=== PATIENT | female | born 1950 | race Caucasian/White ===

== ENCOUNTER 2017-10-01 16:36 | Inpatient (IN) | payer MEDICARE ==
[~2017-10-01] VITALS: Ht 198.1 cm; Wt 70.3 kg
[~2017-10-01 16:36] MED LIST: Vancomycin 750mg/NS 250ml IVPB SCH
[2017-10-01] MEDS ORDERED: GLIPIZIDE5 MG ORAL (16:46)
[2017-10-01] MEDS ORDERED: LISINOPRIL5 MG ORAL (16:46)
[2017-10-01] MEDS ORDERED: CRANBERRY450 M4 PO (16:46)
[2017-10-01] MEDS ORDERED: METFORMIN HCL1000 M1 ORAL (16:46)
[2017-10-01] MEDS ORDERED: Meclizine 25mg tab ORAL ONE (17:00)
[2017-10-01 17:08] VITALS: BP 130/63
[2017-10-01 17:47] LABS: HEMATOCRIT 39.3 % (37.0-47.0); HEMOGLOBIN 13.3 G/DL (12.0-16.0); MEAN CORPUSCULAR VOLUME 85 FL (80-99); PLATELET COUNT 315 K/UL (150-450); RED BLOOD COUNT 4.63 M/UL (4.20-5.40); RED CELL DISTRIBUTION WIDTH 12.4 % (11.6-14.8)
[2017-10-01 18:14] LABS: WHITE BLOOD COUNT 28.4 K/UL (4.8-10.8)
[2017-10-01 18:28] LABS: ALANINE AMINOTRANSFERASE 32 U/L (12-78); ALBUMIN 3.1 G/DL (3.4-5.0); ALBUMIN/GLOBULIN RATIO 0.8 (1.0-2.7); ALKALINE PHOSPHATASE 125 U/L (46-116); ANION GAP 13 mmol/L (5-15); ASPARTATE AMINO TRANSFERASE 28 U/L (15-37); BILIRUBIN,TOTAL 0.6 MG/DL (0.2-1.0); BLOOD UREA NITROGEN 42 mg/dL (7-18); CALCIUM 8.3 MG/DL (8.5-10.1); CARBON DIOXIDE 22 MMOL/L (21-32); CHLORIDE 98 MMOL/L (98-107); CREATININE 1.4 MG/DL (0.55-1.30); POTASSIUM 5.9 MMOL/L (3.5-5.1); SODIUM 133 MMOL/L (136-145)
[2017-10-01 18:43] LABS: APPEARANCE,URINE SLIGHTLY CLOUDY; BILIRUBIN, URINE 2+ (NEGATIVE); GLUCOSE, URINE (UA) 3+ (NEGATIVE); KETONES,URINE 1+ (NEGATIVE); LEUKOCYTE ESTERASE ,URINE 3+ (NEGATIVE); NITRITE,URINE NEGATIVE (NEGATIVE); PH,URINE 5 (4.5-8.0); PROTEIN,URINE 2+ (NEGATIVE); UROBILINOGEN,URINE NORMAL MG/DL (0.0-1.0)
[2017-10-01 18:50] LABS: COLOR,URINE YELLOW
[2017-10-01] MEDS ORDERED: Ampicillin/Sulbactam Sod 3 GM in NS 110 ML IVPB ONE (19:00)
[2017-10-01 19:07] VITALS: BP 115/55
--- NOTE | 2017-10-01 19:43 | Consultation ---
History of Present Illness General Date patient seen: Oct 01, 2017 Chief Complaint: Multiple Trauma/Fall Reason for Consultation: abdominal distention/ nausea/ emesis Present Illness HPI 67 year old female presented to ED for evaluation today. States she was well yesterday then work up at 6AM this morning with vague abdominal discomfort. Had episode of emesis then diarrhea. Since has not had diarrhea but has had 2 more episodes of non bloody emesis. Since onset has noted vague abdominal discomfort which she describes as "it just doesn't feel right." Had a fall and came to ED. Noted to have significant leukocytosis, dehydration, and possible sbo on CT. Abdomen distended. Surgery called for evaluation. patient seen, chart reviewed, patient examined. Allergies: Coded Allergies: No Known Allergies (Unverified , 10/01/17) Medication History Scheduled Cranberry Fruit Concentrate (Cranberry), 450 MG PO DAILY, (Reported) Glipizide* (Glipizide*), 20 MG ORAL BIDAC, (Reported) Lisinopril (Lisinopril*), 5 MG ORAL DAILY, (Reported) Metformin Hcl* (Metformin Hcl*), 1,000 MG ORAL DAILY, (Reported) Patient History History Provided By: Patient, Medical Record, PMD Healthcare decision maker Resuscitation status Advanced Directive on File Past Medical/Surgical History Past Medical/Surgical History: (1) Nausea & vomiting (2) Diarrhea (3) Dehydration (4) Fall (5) Syncope (6) Abdominal pain (7) Partial small bowel obstruction Review of Systems All Other Systems: negative except mentioned in HPI Physical Exam General Appearance: no apparent distress, alert Lines, tubes and drains: peripheral HEENT: normocephalic, mucous membranes moist, PERRL Neck: non-tender Respiratory/Chest: lungs clear, normal breath sounds, no respiratory distress, no accessory muscle use Cardiovascular/Chest: normal peripheral pulses, normal rate Abdomen: non tender, soft, no organomegaly, no mass, distended, other - soft, distended, non tender. Extremities: non-tender, normal inspection Skin Exam: normal pigmentation Neurologic: alert, oriented x 3 Last 24 Hour Vital Signs Date Time Temp Pulse Resp B/P (MAP) Pulse Ox O2 Delivery O2 Flow Rate FiO2 10/01/17 19:07 99.7 98 18 115/55 95 Room Air 99.7 10/01/17 17:08 99.7 100 18 130/63 95 Room Air 99.7 10/01/17 16:38 99.7 100 18 113/63 95 Room Air 99.7 Laboratory Tests Test 10/01/17 17:32 10/01/17 18:30 White Blood Count 28.4 K/UL (4.8-10.8) *H Red Blood Count 4.63 M/UL (4.20-5.40) Hemoglobin 13.3 G/DL (12.0-16.0) Hematocrit 39.3 % (37.0-47.0) Mean Corpuscular Volume 85 FL (80-99) Mean Corpuscular Hemoglobin 28.8 PG (27.0-31.0) Mean Corpuscular Hemoglobin Concent 33.8 G/DL (32.0-36.0) Red Cell Distribution Width 12.4 % (11.6-14.8) Platelet Count 315 K/UL (150-450) Mean Platelet Volume 7.2 FL (6.5-10.1) Neutrophils (%) (Auto) % (45.0-75.0) Lymphocytes (%) (Auto) % (20.0-45.0) Monocytes (%) (Auto) % (1.0-10.0) Eosinophils (%) (Auto) % (0.0-3.0) Basophils (%) (Auto) % (0.0-2.0) Differential Total Cells Counted 100 Neutrophils % (Manual) 85 % (45-75) H Lymphocytes % (Manual) 9 % (20-45) L Monocytes % (Manual) 6 % (1-10) Eosinophils % (Manual) 0 % (0-3) Basophils % (Manual) 0 % (0-2) Band Neutrophils 0 % (0-8) Platelet Estimate Adequate Platelet Morphology Normal Red Blood Cell Morphology Normal Prothrombin Time 10.1 SEC (9.30-11.50) Prothromb Time International Ratio 1.0 (0.9-1.1) Activated Partial Thromboplast Time 26 SEC (23-33) Sodium Level 133 MMOL/L (136-145) L Potassium Level 5.9 MMOL/L (3.5-5.1) H Chloride Level 98 MMOL/L (98-107) Carbon Dioxide Level 22 MMOL/L (21-32) Anion Gap 13 mmol/L (5-15) Blood Urea Nitrogen 42 mg/dL (7-18) H Creatinine 1.4 MG/DL (0.55-1.30) H Estimat Glomerular Filtration Rate 37.6 mL/min (>60) Glucose Level 431 MG/DL (74-106) H Calcium Level 8.3 MG/DL (8.5-10.1) L Total Bilirubin 0.6 MG/DL (0.2-1.0) Aspartate Amino Transf (AST/SGOT) 28 U/L (15-37) Alanine Aminotransferase (ALT/SGPT) 32 U/L (12-78) Alkaline Phosphatase 125 U/L (46-116) H Total Protein 7.2 G/DL (6.4-8.2) Albumin 3.1 G/DL (3.4-5.0) L Globulin 4.1 g/dL Albumin/Globulin Ratio 0.8 (1.0-2.7) L Lipase 302 U/L (73-393) Urine Color Yellow Urine Appearance Slightly cloudy Urine pH 5 (4.5-8.0) Urine Specific [place] 1.020 (1.005-1.035) Urine Protein 2+ (NEGATIVE) H Urine Glucose (UA) 3+ (NEGATIVE) H Urine Ketones 1+ (NEGATIVE) H Urine Occult Blood 2+ (NEGATIVE) H Urine Nitrite Negative (NEGATIVE) Urine Bilirubin 2+ (NEGATIVE) H Urine Ictotest Negative Urine Urobilinogen Normal MG/DL (0.0-1.0) Urine Leukocyte Esterase 3+ (NEGATIVE) H Urine RBC 5-10 /HPF (0 - 2) H Urine WBC 10-15 /HPF (0 - 2) H Urine Squamous Epithelial Cells Moderate /LPF (NONE/OCC) H Urine Amorphous Sediment Moderate /LPF (NONE) H Urine Bacteria Many /HPF (NONE) H Height (Feet): 6 Height (Inches): 6.00 Weight (Pounds): 155 Medications Current Medications Medications (Trade) Dose Ordered Sig/Grace Route PRN Reason Start Time Stop Time Status Last Admin Dose Admin Sodium Chloride 1,000 ml @ 999 mls/hr Q1H1M ONCE IV 10/01/17 18:45 10/01/17 19:45 10/01/17 18:52 Assessment/Plan Problem List: (1) Partial small bowel obstruction Assessment & Plan: 67F possible partial SBO. nausea, emesis, diarrhea resulting in dehydration and syncope. afebrile, HD stable, leukocytosis, labs abnormal. CT results as per radiology read exam stable but with distention. could potentially be enteritis as well. Has UTI Needs further work up Admit NPO IV fluids IV Abx will monitor exam. thank you for this consult. will follow with recs. ICD Codes: K56.600 - Partial intestinal obstruction, unspecified as to cause SNOMED: [id number] Status: stable Pb Laureano Oct 01, 2017 19:43
[2017-10-01 19:49] VITALS: BP 121/102
--- NOTE | 2017-10-01 19:57 | Emergency Room Report ---
History of Present Illness General Chief Complaint: Multiple Trauma/Fall Source: Patient, Medical Record, PMD Present Illness HPI Patient 67-year-old female who presented after multiple episodes of vomiting earlier in the day. Patient reported having increased nonbilious emesis. The patient was noted to have the fall earlier in the day. Patient was brought in by EMS. She reports having some nonbloody emesis. Allergies: Coded Allergies: No Known Allergies (Unverified , 10/01/17) Patient History Past Medical History: see triage record Reviewed Nursing Documentation: PMH: Agreed; PSxH: Agreed Nursing Documentation-PMH Past Medical History: No History, Except For Hx Hypertension: Yes Hx Diabetes: Yes Review of Systems All Other Systems: limited - by poor historian Physical Exam Vital Signs Date Time Temp Pulse Resp B/P (MAP) Pulse Ox O2 Delivery O2 Flow Rate FiO2 10/01/17 16:38 99.7 100 18 113/63 95 Room Air 99.7 Sp02 EP Interpretation: reviewed, normal General Appearance: normal inspection, well appearing, no apparent distress, alert, obese, Chronically Ill Head: atraumatic ENT: normal ENT inspection, hearing grossly normal, normal voice Neck: normal inspection, full range of motion, supple, no bony tend Respiratory: normal inspection, lungs clear, normal breath sounds, no respiratory distress, no retraction, no wheezing Cardiovascular #1: regular rate, rhythm, no edema Gastrointestinal: normal bowel sounds, soft, no hernia, distended Genitourinary: no CVA tenderness Musculoskeletal: normal inspection, back normal, normal range of motion Neurologic: normal inspection, alert, oriented x3, responsive, speech normal Psychiatric: normal inspection, judgement/insight normal, mood/affect normal Skin: normal inspection, normal color, no rash Medical Decision Making Diagnostic Impression: Primary Impression: Abdominal pain Additional Impressions: Partial small bowel obstruction UTI (urinary tract infection) ER Course Patient presented for abdominal pain. Differential diagnoses included ischemic bowel, appendicitis, perforated viscus, abdominal aortic aneurysm, inferior myocardial infarction, viral gastroenteritis Because of complexity of patient's case laboratory testing and imaging studies were ordered. Laboratory testing showed evidence of elevated white blood count as well as increased BUN/creatinine consistent with dehydration. Patient started on IV fluids.Dr. Lydia Askew was contacted for inpatient management due to primary care physician. Dr. Laureano was contacted for surgical consult. Labs Test 10/01/17 17:32 10/01/17 18:30 White Blood Count 28.4 K/UL (4.8-10.8) Red Blood Count 4.63 M/UL (4.20-5.40) Hemoglobin 13.3 G/DL (12.0-16.0) Hematocrit 39.3 % (37.0-47.0) Mean Corpuscular Volume 85 FL (80-99) Mean Corpuscular Hemoglobin 28.8 PG (27.0-31.0) Mean Corpuscular Hemoglobin Concent 33.8 G/DL (32.0-36.0) Red Cell Distribution Width 12.4 % (11.6-14.8) Platelet Count 315 K/UL (150-450) Mean Platelet Volume 7.2 FL (6.5-10.1) Neutrophils (%) (Auto) % (45.0-75.0) Lymphocytes (%) (Auto) % (20.0-45.0) Monocytes (%) (Auto) % (1.0-10.0) Eosinophils (%) (Auto) % (0.0-3.0) Basophils (%) (Auto) % (0.0-2.0) Differential Total Cells Counted 100 Neutrophils % (Manual) 85 % (45-75) Lymphocytes % (Manual) 9 % (20-45) Monocytes % (Manual) 6 % (1-10) Eosinophils % (Manual) 0 % (0-3) Basophils % (Manual) 0 % (0-2) Band Neutrophils 0 % (0-8) Platelet Estimate Adequate Platelet Morphology Normal Red Blood Cell Morphology Normal Prothrombin Time 10.1 SEC (9.30-11.50) Prothromb Time International Ratio 1.0 (0.9-1.1) Activated Partial Thromboplast Time 26 SEC (23-33) Sodium Level 133 MMOL/L (136-145) Potassium Level 5.9 MMOL/L (3.5-5.1) Chloride Level 98 MMOL/L (98-107) Carbon Dioxide Level 22 MMOL/L (21-32) Anion Gap 13 mmol/L (5-15) Blood Urea Nitrogen 42 mg/dL (7-18) Creatinine 1.4 MG/DL (0.55-1.30) Estimat Glomerular Filtration Rate 37.6 mL/min (>60) Glucose Level 431 MG/DL (74-106) Calcium Level 8.3 MG/DL (8.5-10.1) Total Bilirubin 0.6 MG/DL (0.2-1.0) Aspartate Amino Transf (AST/SGOT) 28 U/L (15-37) Alanine Aminotransferase (ALT/SGPT) 32 U/L (12-78) Alkaline Phosphatase 125 U/L (46-116) Total Protein 7.2 G/DL (6.4-8.2) Albumin 3.1 G/DL (3.4-5.0) Globulin 4.1 g/dL Albumin/Globulin Ratio 0.8 (1.0-2.7) Lipase 302 U/L (73-393) Urine Color Yellow Urine Appearance Slightly cloudy Urine pH 5 (4.5-8.0) Urine Specific [place] 1.020 (1.005-1.035) Urine Protein 2+ (NEGATIVE) Urine Glucose (UA) 3+ (NEGATIVE) Urine Ketones 1+ (NEGATIVE) Urine Occult Blood 2+ (NEGATIVE) Urine Nitrite Negative (NEGATIVE) Urine Bilirubin 2+ (NEGATIVE) Urine Ictotest Negative Urine Urobilinogen Normal MG/DL (0.0-1.0) Urine Leukocyte Esterase 3+ (NEGATIVE) Urine RBC 5-10 /HPF (0 - 2) Urine WBC 10-15 /HPF (0 - 2) Urine Squamous Epithelial Cells Moderate /LPF (NONE/OCC) Urine Amorphous Sediment Moderate /LPF (NONE) Urine Bacteria Many /HPF (NONE) Last Vital Signs Date Time Temp Pulse Resp B/P (MAP) Pulse Ox O2 Delivery O2 Flow Rate FiO2 10/01/17 19:49 98.0 98 18 121/102 95 Room Air 98.0 Status: unchanged Disposition: XFER SHT-TRM HOSP Condition: Serious Referrals: LYDIA ASKEW (PCP) Moo Cody Oct 01, 2017 19:57
[2017-10-01 20:33] VITALS: BP 138/68
[2017-10-01] MEDS ORDERED: Miralax 17gm pkt ORAL PRN (22:30)
[2017-10-01] MEDS ORDERED: Nitroglycerin Subl 0.4mg tab SL PRN (22:30)
[2017-10-01] MEDS ORDERED: Albuterol/Ipratropium 3ml neb HHN PRN (22:30)
[2017-10-01] MEDS ORDERED: Morphine Sulfate 2mg/ml Inj IVP PRN (22:30)
[2017-10-02] VITALS (7 sets, daily range): BP systolic 117–151; BP diastolic 53–82
[2017-10-02] MEDS ORDERED: Vancomycin 750mg/NS 250ml IVPB SCH
[2017-10-02] MEDS ORDERED: Vancomycin 1 GM in D5W 275 ML IV SCH (00:30)
[2017-10-02] MEDS: NovoLOG Insulin Flexpen SUBQ SCH ×4 (05:57→20:26)
[2017-10-02 08:14] LABS: BASOPHILS % (AUTO) 0.2 % (0.0-2.0); EOSINOPHILS % (AUTO) 0.6 % (0.0-3.0); HEMATOCRIT 33.5 % (37.0-47.0); HEMOGLOBIN 11.2 G/DL (12.0-16.0); LYMPHOCYTES % (AUTO) 13.5 % (20.0-45.0); MEAN CORPUSCULAR VOLUME 87 FL (80-99); MONOCYTES % (AUTO) 3.3 % (1.0-10.0); NEUTROPHILS % (AUTO) 82.4 % (45.0-75.0); PLATELET COUNT 283 K/UL (150-450); RED BLOOD COUNT 3.86 M/UL (4.20-5.40); RED CELL DISTRIBUTION WIDTH 12.6 % (11.6-14.8); WHITE BLOOD COUNT 16.9 K/UL (4.8-10.8)
--- NOTE | 2017-10-02 08:46 | Diagnostic Imaging Report ---
Indication: Abdominal pain Technique: Spiral acquisitions obtained through the abdomen and pelvis. No oral contrast utilized, per emergency room physician request No IV contrast utilized, per referring physician request.. Multiplanar reconstructions were generated. Total dose length product 750.98 mGycm. CTDIvol(s) 13.88 mGy. Dose reduction achieved using automated exposure control Comparison: None Findings: The appendix is normal. No evidence of diverticulosis or diverticulitis. The rectum is mildly distended by gas. Small bowel loops are mildly distended, fluid-filled. Distention extends all the way to the level of the ileocecal valve. The proximal colon is also filled with fluid. No definite bowel wall thickening. The distal esophagus, stomach, duodenum are unremarkable. No free or loculated peritoneal air or fluid is evident. Lack of IV contrast limits assessment of the solid organs. The liver, gallbladder, bile ducts, pancreas are all unremarkable. Spleen demonstrates a small parenchymal calcification. The adrenals are unremarkable. The kidneys demonstrate nonspecific bilateral perinephric fat stranding, minimal, no abnormality otherwise. No retroperitoneal or mesenteric mass or adenopathy. No pelvic mass or adenopathy. The bones demonstrate degenerative spondylosis changes. The included lung bases demonstrate some scarring on the left. Impression: Diffusely mildly distended fluid-filled small bowel loops, suspect on the basis of enteritis or ileus. Minimal nonspecific bilateral perinephric fat stranding Degenerative spondylosis Left basilar pulmonary scarring -Agrees stat rad The CT scanner at [facility] is accredited by the [employer] and the scans are performed using protocols designed to limit radiation exposure to as low as reasonably achievable to attain images of sufficient resolution adequate for diagnostic evaluation.
[2017-10-02 08:49] LABS: ALANINE AMINOTRANSFERASE 26 U/L (12-78); ALBUMIN 2.7 G/DL (3.4-5.0); ALBUMIN/GLOBULIN RATIO 0.8 (1.0-2.7); ALKALINE PHOSPHATASE 97 U/L (46-116); ANION GAP 9 mmol/L (5-15); ASPARTATE AMINO TRANSFERASE 11 U/L (15-37); BILIRUBIN,TOTAL 0.4 MG/DL (0.2-1.0); BLOOD UREA NITROGEN 34 mg/dL (7-18); CALCIUM 7.5 MG/DL (8.5-10.1); CARBON DIOXIDE 25 MMOL/L (21-32); CHLORIDE 103 MMOL/L (98-107); CREATININE 1.1 MG/DL (0.55-1.30); POTASSIUM 4.2 MMOL/L (3.5-5.1); SODIUM 137 MMOL/L (136-145)
[2017-10-02] MEDS ORDERED: Cefepime HCl 2 GM in D5W 110 ML IV SCH (09:00)
[2017-10-02] MEDS ORDERED: Heparin 5000 units/ml inj SUBQ SCH (09:00)
--- NOTE | 2017-10-02 10:25 | GI Initial Consult Note ---
Lorie Marr N.PHarpal 10/02/17 1025: History of Present Illness General Date patient seen: Oct 02, 2017 Time patient seen: 10:22 Reason for Hospitalization: Multiple Trauma/Fall Referring physician: LYDIA ASKEW Reason for Consultation: abdominal distention/ nausea/ emesis Present Illness HPI Patient 67-year-old female who presented after multiple episodes of vomiting earlier in the day. Patient reported having increased nonbilious emesis. The patient was noted to have the fall earlier in the day. Patient was brought in by EMS. She reports having some nonbloody emesis. GI consulted for reports of N/V abdominal distention. Pt seen on floor, awake A&Ox4 NAD with no active s/sx of N/V/D. Patient reports 3 episodes of emesis 2 days ago, denies any heme or coffee grounds. Denies any abdominal pain , soft non tender. Last BM reported yesterday. On ADA diet now. Has complaint of generalized weakness. Presents today with leukocytosis, and anemia. CT reviewed shows possible enteritis vs ileus. No history of endoscopy / colonoscopy. Home Meds Reported Medications Cranberry Fruit Concentrate (CRANBERRY) 450 Mg Capsule, 450 MG PO DAILY, CAP 10/01/17 Metformin Hcl* (METFORMIN HCL*) 1,000 Mg Tablet, 1000 MG ORAL DAILY, TAB 10/01/17 Lisinopril (LISINOPRIL*) 5 Mg Tablet, 5 MG ORAL DAILY, TAB 10/01/17 Glipizide* (GLIPIZIDE*) 5 Mg Tablet, 20 MG ORAL BIDAC, TAB 10/01/17 Med list reviewed/reconciled: Yes Allergies: Coded Allergies: No Known Allergies (Unverified , 10/01/17) Patient History History Provided By: Patient, Medical Record PMH Narrative Past Medical History: see triage record Reviewed Nursing Documentation: PMH: Agreed; PSxH: Agreed Nursing Documentation-PMH Past Medical History: No History, Except For Hx Hypertension: Yes Hx Diabetes: Yes Social History: Denies: smoking, alcohol use, drug use, other Review of Systems All Other Systems: negative except mentioned in HPI Physical Exam Vital Signs Date Time Temp Pulse Resp B/P (MAP) Pulse Ox O2 Delivery O2 Flow Rate FiO2 10/01/17 16:38 99.7 100 18 113/63 95 Room Air 99.7 Sp02 EP Interpretation: reviewed, normal Labs Laboratory Tests Test 10/01/17 17:32 10/01/17 18:30 10/02/17 07:00 White Blood Count 28.4 K/UL (4.8-10.8) *H 16.9 K/UL (4.8-10.8) H Red Blood Count 4.63 M/UL (4.20-5.40) 3.86 M/UL (4.20-5.40) L Hemoglobin 13.3 G/DL (12.0-16.0) 11.2 G/DL (12.0-16.0) L Hematocrit 39.3 % (37.0-47.0) 33.5 % (37.0-47.0) L Mean Corpuscular Volume 85 FL (80-99) 87 FL (80-99) Mean Corpuscular Hemoglobin 28.8 PG (27.0-31.0) 28.9 PG (27.0-31.0) Mean Corpuscular Hemoglobin Concent 33.8 G/DL (32.0-36.0) 33.4 G/DL (32.0-36.0) Red Cell Distribution Width 12.4 % (11.6-14.8) 12.6 % (11.6-14.8) Platelet Count 315 K/UL (150-450) 283 K/UL (150-450) Mean Platelet Volume 7.2 FL (6.5-10.1) 7.2 FL (6.5-10.1) Neutrophils (%) (Auto) % (45.0-75.0) 82.4 % (45.0-75.0) H Lymphocytes (%) (Auto) % (20.0-45.0) 13.5 % (20.0-45.0) L Monocytes (%) (Auto) % (1.0-10.0) 3.3 % (1.0-10.0) Eosinophils (%) (Auto) % (0.0-3.0) 0.6 % (0.0-3.0) Basophils (%) (Auto) % (0.0-2.0) 0.2 % (0.0-2.0) Differential Total Cells Counted 100 Neutrophils % (Manual) 85 % (45-75) H Lymphocytes % (Manual) 9 % (20-45) L Monocytes % (Manual) 6 % (1-10) Eosinophils % (Manual) 0 % (0-3) Basophils % (Manual) 0 % (0-2) Band Neutrophils 0 % (0-8) Platelet Estimate Adequate Platelet Morphology Normal Red Blood Cell Morphology Normal Prothrombin Time 10.1 SEC (9.30-11.50) Prothromb Time International Ratio 1.0 (0.9-1.1) Activated Partial Thromboplast Time 26 SEC (23-33) Sodium Level 133 MMOL/L (136-145) L 137 MMOL/L (136-145) Potassium Level 5.9 MMOL/L (3.5-5.1) H 4.2 MMOL/L (3.5-5.1) Chloride Level 98 MMOL/L (98-107) 103 MMOL/L (98-107) Carbon Dioxide Level 22 MMOL/L (21-32) 25 MMOL/L (21-32) Anion Gap 13 mmol/L (5-15) 9 mmol/L (5-15) Blood Urea Nitrogen 42 mg/dL (7-18) H 34 mg/dL (7-18) H Creatinine 1.4 MG/DL (0.55-1.30) H 1.1 MG/DL (0.55-1.30) Estimat Glomerular Filtration Rate 37.6 mL/min (>60) 49.7 mL/min (>60) Glucose Level 431 MG/DL (74-106) H 235 MG/DL (74-106) #H Calcium Level 8.3 MG/DL (8.5-10.1) L 7.5 MG/DL (8.5-10.1) L Total Bilirubin 0.6 MG/DL (0.2-1.0) 0.4 MG/DL (0.2-1.0) Aspartate Amino Transf (AST/SGOT) 28 U/L (15-37) 11 U/L (15-37) L Alanine Aminotransferase (ALT/SGPT) 32 U/L (12-78) 26 U/L (12-78) Alkaline Phosphatase 125 U/L (46-116) H 97 U/L (46-116) Total Protein 7.2 G/DL (6.4-8.2) 6.3 G/DL (6.4-8.2) L Albumin 3.1 G/DL (3.4-5.0) L 2.7 G/DL (3.4-5.0) L Globulin 4.1 g/dL 3.6 g/dL Albumin/Globulin Ratio 0.8 (1.0-2.7) L 0.8 (1.0-2.7) L Lipase 302 U/L (73-393) Urine Color Yellow Urine Appearance Slightly cloudy Urine pH 5 (4.5-8.0) Urine Specific [place] 1.020 (1.005-1.035) Urine Protein 2+ (NEGATIVE) H Urine Glucose (UA) 3+ (NEGATIVE) H Urine Ketones 1+ (NEGATIVE) H Urine Occult Blood 2+ (NEGATIVE) H Urine Nitrite Negative (NEGATIVE) Urine Bilirubin 2+ (NEGATIVE) H Urine Ictotest Negative Urine Urobilinogen Normal MG/DL (0.0-1.0) Urine Leukocyte Esterase 3+ (NEGATIVE) H Urine RBC 5-10 /HPF (0 - 2) H Urine WBC 10-15 /HPF (0 - 2) H Urine Squamous Epithelial Cells Moderate /LPF (NONE/OCC) H Urine Amorphous Sediment Moderate /LPF (NONE) H Urine Bacteria Many /HPF (NONE) H General Appearance: well appearing, no apparent distress, alert Head: normocephalic EENT: PERRL/EOMI, normal ENT inspection Neck: supple Respiratory: normal breath sounds, no respiratory distress Cardiovascular: normal rate Gastrointestinal: normal inspection, non tender, soft, normal bowel sounds, non -distended Rectal: deferred Genitourinary: no CVA tenderness Musculoskeletal: normal inspection, back normal Neurologic: normal inspection, alert, oriented x3, responsive Psychiatric: normal inspection, judgement/insight normal, memory normal Skin: normal inspection, normal color, no rash, warm/dry, palpation normal, well hydrated Lymphatic: normal inspection, no adenopathy Current Medications Current Medications Medications (Trade) Dose Ordered Sig/Grace Route PRN Reason Start Time Stop Time Status Last Admin Dose Admin Acetaminophen (Tylenol) 650 mg Q4H PRN ORAL fever 10/01/17 22:30 10/31/17 22:29 Albuterol/ Ipratropium (Albuterol/ Ipratropium) 3 ml EVERY 4 HOURS PRN HHN Shortness of Breath 10/01/17 22:30 10/06/17 22:29 Cefepime HCl 2 gm/ Dextrose 110 ml @ 220 mls/hr EVERY 12 HOURS IV 10/02/17 09:00 10/09/17 08:59 10/02/17 09:48 Dextrose (Dextrose 50%) STAT PRN IV Hypoglycemia 10/01/17 22:30 10/31/17 22:29 Heparin Sodium (Porcine) (Heparin 5000 units/ml) 5,000 units EVERY 12 HOURS SUBQ 10/02/17 09:00 11/01/17 08:59 10/02/17 08:57 Insulin Aspart (NovoLOG) BEFORE MEALS AND HS SUBQ 10/02/17 06:30 11/01/17 06:29 10/02/17 05:57 Morphine Sulfate (Morphine Sulfate) 2 mg EVERY 4 HOURS PRN IVP Moderate Pain (Pain Scale 4-6) 10/01/17 22:30 10/08/17 22:29 Nitroglycerin (Ntg) 0.4 mg Q5M PRN SL Prn Chest Pain 10/01/17 22:30 10/31/17 22:29 Ondansetron HCl (Zofran) 4 mg Q6H PRN IVP Nausea & Vomiting 10/01/17 22:30 10/31/17 22:29 Polyethylene Glycol (Miralax) 17 gm DAILYPRN PRN ORAL Constipation 10/01/17 22:30 10/31/17 22:29 Temazepam (Restoril) 15 mg HSPRN PRN ORAL Insomnia 10/01/17 22:30 10/08/17 22:29 Vancomycin/Sodium Chloride 250 ml @ 166.667 mls/hr Q24H IVPB 10/02/17 00:00 10/07/17 00:00 10/02/17 00:11 GI: Plan Problems: (1) Ileus (2) Dehydration (3) Nausea & vomiting (4) Fall (5) Syncope (6) Abdominal pain Plan CT AP reviewed, see full report >> possible enteritis vs ileus ADA diet anemia work up OB stool r/o GI bleed monitor H&H, prn transfusions bowel regime zofran prn ppi abx OT/PT eval fu labs outpatient GI procedures Discussed with Dr. Rodriguez. Thank you for this patient referral, we will follow. ANNA RODRIGUEZ 10/05/17 1358: History of Present Illness General Reason for Hospitalization: Multiple Trauma/Fall Present Illness Home Meds Reported Medications Cranberry Fruit Concentrate (CRANBERRY) 450 Mg Capsule, 450 MG PO DAILY, CAP 10/01/17 Metformin Hcl* (METFORMIN HCL*) 1,000 Mg Tablet, 1000 MG ORAL DAILY, TAB 10/01/17 Lisinopril (LISINOPRIL*) 5 Mg Tablet, 5 MG ORAL DAILY, TAB 10/01/17 Glipizide* (GLIPIZIDE*) 5 Mg Tablet, 20 MG ORAL BIDAC, TAB 10/01/17 Allergies: Coded Allergies: No Known Allergies (Unverified , 10/01/17) GI: Plan Plan The patient was seen and examined at bedside and all new and available data was reviewed in the patients chart. I agree with the above findings, impression and plan. (Patient seen earlier today. Signature stamp does not reflect patient encounter time.). - MD Justa Vill[facility] Terrell N.PHarpal Oct 02, 2017 10:25 ANNA RODRIGUEZ Oct 05, 2017 13:58
[2017-10-02] MEDS ORDERED: Miralax 17gm pkt ORAL PRN (10:45)
--- NOTE | 2017-10-02 13:24 | Consultation ---
History of Present Illness General Date patient seen: Oct 02, 2017 Chief Complaint: Multiple Trauma/Fall Referring physician: LYDIA ASKEW Reason for Consultation: sepsis, inpatient management Present Illness Allergies: Coded Allergies: No Known Allergies (Unverified , 10/01/17) Medication History Scheduled Cranberry Fruit Concentrate (Cranberry), 450 MG PO DAILY, (Reported) Glipizide* (Glipizide*), 20 MG ORAL BIDAC, (Reported) Lisinopril (Lisinopril*), 5 MG ORAL DAILY, (Reported) Metformin Hcl* (Metformin Hcl*), 1,000 MG ORAL DAILY, (Reported) Patient History Healthcare decision maker Resuscitation status Full Code Advanced Directive on File Yes Past Medical/Surgical History Past Medical/Surgical History: (1) Diabetes mellitus Review of Systems Gastrointestinal: Reports: abdominal pain, diarrhea, nausea, vomiting All Other Systems: negative except mentioned in HPI Physical Exam General Appearance: cachetic Lines, tubes and drains: peripheral HEENT: normocephalic, atraumatic Neck: non-tender, supple Respiratory/Chest: chest wall non-tender, normal breath sounds Breasts: no masses Cardiovascular/Chest: normal peripheral pulses, normal rate Abdomen: normal bowel sounds, soft Genitourinary/Rectal: normal genital exam, heme negative stool Extremities: normal range of motion, non-tender Skin Exam: normal pigmentation Last 24 Hour Vital Signs Date Time Temp Pulse Resp B/P (MAP) Pulse Ox O2 Delivery O2 Flow Rate FiO2 10/02/17 12:00 98.2 64 20 122/53 96 Room Air 98.2 10/02/17 08:19 80 18 21 10/02/17 08:00 90 10/02/17 08:00 98.1 84 20 118/82 94 Room Air 98.1 10/02/17 04:00 96.8 20 137/70 95 Room Air 96.8 10/02/17 04:00 70 10/02/17 00:00 76 10/02/17 00:00 98.1 20 151/67 96 Room Air 98.1 10/01/17 20:33 99.7 18 138/68 94 Room Air 99.7 10/01/17 20:15 98.0 99 16 131/80 98 Room Air 10/01/17 19:49 98.0 98 18 121/102 95 Room Air 98.0 10/01/17 19:07 99.7 98 18 115/55 95 Room Air 99.7 10/01/17 17:08 99.7 100 18 130/63 95 Room Air 99.7 10/01/17 16:38 99.7 100 18 113/63 95 Room Air 99.7 Laboratory Tests Test 10/01/17 17:32 10/01/17 18:30 10/02/17 07:00 White Blood Count 28.4 K/UL (4.8-10.8) *H 16.9 K/UL (4.8-10.8) H Red Blood Count 4.63 M/UL (4.20-5.40) 3.86 M/UL (4.20-5.40) L Hemoglobin 13.3 G/DL (12.0-16.0) 11.2 G/DL (12.0-16.0) L Hematocrit 39.3 % (37.0-47.0) 33.5 % (37.0-47.0) L Mean Corpuscular Volume 85 FL (80-99) 87 FL (80-99) Mean Corpuscular Hemoglobin 28.8 PG (27.0-31.0) 28.9 PG (27.0-31.0) Mean Corpuscular Hemoglobin Concent 33.8 G/DL (32.0-36.0) 33.4 G/DL (32.0-36.0) Red Cell Distribution Width 12.4 % (11.6-14.8) 12.6 % (11.6-14.8) Platelet Count 315 K/UL (150-450) 283 K/UL (150-450) Mean Platelet Volume 7.2 FL (6.5-10.1) 7.2 FL (6.5-10.1) Neutrophils (%) (Auto) % (45.0-75.0) 82.4 % (45.0-75.0) H Lymphocytes (%) (Auto) % (20.0-45.0) 13.5 % (20.0-45.0) L Monocytes (%) (Auto) % (1.0-10.0) 3.3 % (1.0-10.0) Eosinophils (%) (Auto) % (0.0-3.0) 0.6 % (0.0-3.0) Basophils (%) (Auto) % (0.0-2.0) 0.2 % (0.0-2.0) Differential Total Cells Counted 100 Neutrophils % (Manual) 85 % (45-75) H Lymphocytes % (Manual) 9 % (20-45) L Monocytes % (Manual) 6 % (1-10) Eosinophils % (Manual) 0 % (0-3) Basophils % (Manual) 0 % (0-2) Band Neutrophils 0 % (0-8) Platelet Estimate Adequate Platelet Morphology Normal Red Blood Cell Morphology Normal Prothrombin Time 10.1 SEC (9.30-11.50) Prothromb Time International Ratio 1.0 (0.9-1.1) Activated Partial Thromboplast Time 26 SEC (23-33) Sodium Level 133 MMOL/L (136-145) L 137 MMOL/L (136-145) Potassium Level 5.9 MMOL/L (3.5-5.1) H 4.2 MMOL/L (3.5-5.1) Chloride Level 98 MMOL/L (98-107) 103 MMOL/L (98-107) Carbon Dioxide Level 22 MMOL/L (21-32) 25 MMOL/L (21-32) Anion Gap 13 mmol/L (5-15) 9 mmol/L (5-15) Blood Urea Nitrogen 42 mg/dL (7-18) H 34 mg/dL (7-18) H Creatinine 1.4 MG/DL (0.55-1.30) H 1.1 MG/DL (0.55-1.30) Estimat Glomerular Filtration Rate 37.6 mL/min (>60) 49.7 mL/min (>60) Glucose Level 431 MG/DL (74-106) H 235 MG/DL (74-106) #H Calcium Level 8.3 MG/DL (8.5-10.1) L 7.5 MG/DL (8.5-10.1) L Total Bilirubin 0.6 MG/DL (0.2-1.0) 0.4 MG/DL (0.2-1.0) Aspartate Amino Transf (AST/SGOT) 28 U/L (15-37) 11 U/L (15-37) L Alanine Aminotransferase (ALT/SGPT) 32 U/L (12-78) 26 U/L (12-78) Alkaline Phosphatase 125 U/L (46-116) H 97 U/L (46-116) Total Protein 7.2 G/DL (6.4-8.2) 6.3 G/DL (6.4-8.2) L Albumin 3.1 G/DL (3.4-5.0) L 2.7 G/DL (3.4-5.0) L Globulin 4.1 g/dL 3.6 g/dL Albumin/Globulin Ratio 0.8 (1.0-2.7) L 0.8 (1.0-2.7) L Lipase 302 U/L (73-393) Urine Color Yellow Urine Appearance Slightly cloudy Urine pH 5 (4.5-8.0) Urine Specific [place] 1.020 (1.005-1.035) Urine Protein 2+ (NEGATIVE) H Urine Glucose (UA) 3+ (NEGATIVE) H Urine Ketones 1+ (NEGATIVE) H Urine Occult Blood 2+ (NEGATIVE) H Urine Nitrite Negative (NEGATIVE) Urine Bilirubin 2+ (NEGATIVE) H Urine Ictotest Negative Urine Urobilinogen Normal MG/DL (0.0-1.0) Urine Leukocyte Esterase 3+ (NEGATIVE) H Urine RBC 5-10 /HPF (0 - 2) H Urine WBC 10-15 /HPF (0 - 2) H Urine Squamous Epithelial Cells Moderate /LPF (NONE/OCC) H Urine Amorphous Sediment Moderate /LPF (NONE) H Urine Bacteria Many /HPF (NONE) H Microbiology Date/Time Source Procedure Growth Status 10/01/17 18:30 Urine,Clean Catch Urine Culture - Preliminary Resulted Height (Feet): 6 Height (Inches): 6.00 Weight (Pounds): 155 Medications Current Medications Medications (Trade) Dose Ordered Sig/Grace Route PRN Reason Start Time Stop Time Status Last Admin Dose Admin Acetaminophen (Tylenol) 650 mg Q4H PRN ORAL fever 10/01/17 22:30 10/31/17 22:29 Albuterol/ Ipratropium (Albuterol/ Ipratropium) 3 ml EVERY 4 HOURS PRN HHN Shortness of Breath 10/01/17 22:30 10/06/17 22:29 Cefepime HCl 2 gm/ Dextrose 110 ml @ 220 mls/hr EVERY 12 HOURS IV 10/02/17 09:00 10/09/17 08:59 10/02/17 09:48 Dextrose (Dextrose 50%) 25 ml STAT PRN IV Hypoglycemia 10/02/17 12:45 10/31/17 22:29 Dextrose (Dextrose 50%) 50 ml STAT PRN IV Hypoglycemia 10/02/17 12:45 11/01/17 12:44 Heparin Sodium (Porcine) (Heparin 5000 units/ml) 5,000 units EVERY 12 HOURS SUBQ 10/02/17 09:00 11/01/17 08:59 10/02/17 08:57 Insulin Aspart (NovoLOG) BEFORE MEALS AND HS SUBQ 10/02/17 06:30 11/01/17 06:29 10/02/17 11:20 Morphine Sulfate (Morphine Sulfate) 2 mg EVERY 4 HOURS PRN IVP Moderate Pain (Pain Scale 4-6) 10/01/17 22:30 10/08/17 22:29 Nitroglycerin (Ntg) 0.4 mg Q5M PRN SL Prn Chest Pain 10/01/17 22:30 10/31/17 22:29 Ondansetron HCl (Zofran) 4 mg Q6H PRN IVP Nausea & Vomiting 10/01/17 22:30 10/31/17 22:29 Pantoprazole (Protonix) 40 mg DAILY ORAL 10/03/17 09:00 11/02/17 08:59 Polyethylene Glycol (Miralax) 17 gm DAILYPRN PRN ORAL Constipation 10/02/17 10:45 11/01/17 10:44 Temazepam (Restoril) 15 mg HSPRN PRN ORAL Insomnia 10/01/17 22:30 10/08/17 22:29 Vancomycin HCl (Vanco rx to dose) 1 ea DAILY PRN MISC PER RX PROTOCOL 10/02/17 12:45 11/01/17 12:44 Vancomycin/Sodium Chloride 250 ml @ 166.667 mls/hr Q24H IVPB 10/02/17 00:00 10/07/17 00:00 10/02/17 00:11 Assessment/Plan Problem List: (1) UTI (urinary tract infection) ICD Codes: N39.0 - Urinary tract infection, site not specified SNOMED: 26981432 (2) Ileus ICD Codes: K56.7 - Ileus, unspecified SNOMED: 938653031 (3) Partial small bowel obstruction ICD Codes: K56.600 - Partial intestinal obstruction, unspecified as to cause SNOMED: 247764043 (4) Nausea & vomiting ICD Codes: R11.2 - Nausea with vomiting, unspecified SNOMED: 03373302 (5) Diabetes mellitus ICD Codes: E11.9 - Type 2 diabetes mellitus without complications SNOMED: 70247414 Assessment/Plan npo iv fluids check cultures surgical evaluation check electrolytes sliding scale symptomatic treatment. Raymond Rosen MD Oct 02, 2017 13:24
--- NOTE | 2017-10-02 14:51 | Cardiology Report ---
APPROVED REPORT EKG Measurement Heart [id number] VT [id number] [id number] Sinus tachycardia Incomplete right bundle branch block Left anterior fascicular block Voltage criteria for left ventricular hypertrophy Possible Lateral infarct, age undetermined Abnormal ECG
--- NOTE | 2017-10-02 16:12 | Consultation ---
Consult Note Consult Note [id number] Franky Brandt MD Oct 02, 2017 16:12
[2017-10-02] MEDS ORDERED: Nitroglycerin Subl 0.4mg tab SL PRN (17:00)
[2017-10-02] MEDS ORDERED: Morphine Sulfate 2mg/ml Inj IVP PRN (17:00)
[2017-10-02] MEDS ORDERED: Albuterol/Ipratropium 3ml neb HHN PRN (17:00)
--- NOTE | 2017-10-02 19:45 | History and Physical Report ---
DATE OF ADMISSION: 10/01/2017 APPROXIMATELY TIME: 1 p.m. CONSULTANTS: 1. Wero Ortega M.D. 2. Pb Laureano M.D. 3. Raymond Rosen M.D. 4. Ludin Nance M.D. 5. Andrez Rahman M.D. 6. Douglas Willson M.D. CHIEF COMPLAINT: Nausea, vomiting, small bowel obstruction, edema, UTI, leukocytosis. BRIEF HISTORY: This is a 67-year-old female from [facility] presented two days of increasing nausea and vomiting, came to [place] [facility], diagnosed with small bowel obstruction, and also urinary tract infection, and admitted to telemetry for further care. Currently, slightly nauseous in bed, no complaint. REVIEW OF SYSTEMS: No chest pain. No shortness of breath. Slight nausea, vomiting. No diarrhea. PAST MEDICAL HISTORY: Hypertension and diabetes. PAST SURGICAL HISTORY: None. MEDICATIONS: Include Protonix, vancomycin, cefepime, heparin, NovoLog, albuterol, Tylenol, morphine, Zofran, nitroglycerin, temazepam. ALLERGIES: Haldol. SOCIAL HISTORY: No smoking. No alcohol. No intravenous drug use. FAMILY HISTORY: Noncontributory. PHYSICAL EXAMINATION: GENERAL: Calm in bed, oriented x2, slight abdominal discomfort. VITAL SIGNS: Temperature is 98, pulse 64, respiratory rate 20, blood pressure 122/53. CARDIOVASCULAR: No murmur. LUNGS: Distant and clear. ABDOMEN: Bowel sounds distant. Soft. No rigidity. No rebound but slightly distended. EXTREMITIES: No cyanosis, clubbing, 1+ edema. NEUROLOGIC: The patient moves all extremities, but slightly weak. LABORATORY AND DIAGNOSTIC DATA: White count 16.9, hemoglobin and hematocrit 11/33, platelets 283. BMP shows BUN 34, glucose 235, otherwise BMP is normal. Albumin 2.7. INR is 1.0. Urinalysis show 3+ leukocyte esterase. ASSESSMENT: 1. Nausea and vomiting. 2. Small bowel obstruction. 3. Edema. 4. Anemia. 5. UTI. 6. Sepsis. 7. Renal insufficiency. 8. Diabetes. 9. Hyperglycemia. 10. Hypoalbumin. 11. Hypertension. PLAN: 1. NPO. 2. IV fluids. 3. Pain control. 4. Antiemetics p.r.n. 5. Blood pressure and blood sugar control. 6. Dietary followup. 7. OT/PT. 8. Dietary evaluation. 9. CBC and BMP in the morning. 10. We will continue to follow this patient medically. Dorian Henriquez D.O. DR: Jorge Luis JOB#: [id number] CC:
[2017-10-02] MEDS: Cefepime HCl 2 GM in D5W 110 ML IV SCH (20:25)
[2017-10-02] MEDS: Heparin 5000 units/ml inj SUBQ SCH (20:28)
--- NOTE | 2017-10-02 20:45 | Consultation ---
DATE OF CONSULTATION: 10/02/2017 INFECTIOUS DISEASES CONSULTATION CONSULTING PHYSICIAN: Franky Brandt M.D. REFERRING PHYSICIAN: Dorian Henriquez D.O. REASON FOR CONSULTATION: Evaluation of the patient for possible sepsis/leukocytosis, antibiotic management. HISTORY OF PRESENT ILLNESS: The patient is a 67-year-old female with multiple problems as listed below who was transferred to this medical center after the patient had a fall. Also the patient has episodes of nonbilious vomiting. The patient was found to have leukocytosis in the range of 18,000. The patient has been admitted here for further evaluation. Infectious Diseases consultation has been requested for further evaluation of patient and antibiotic management. PAST MEDICAL HISTORY: 1. GERD. 2. Hypertension. 3. Diabetes. ALLERGIES: No known drug allergies. SOCIAL HISTORY: Unremarkable. FAMILY HISTORY: Noncontributing. REVIEW OF SYSTEMS: HEENT: No recent change in vision or hearing. PULMONARY: The patient has chronic allergic cough. No sputum production. CARDIOVASCULAR: No chest pain. GASTROINTESTINAL/ABDOMEN: No nausea or vomiting. The patient had one episode of large bowel movement yesterday. GENITOURINARY: No dysuria. NEUROLOGIC: No seizure. PHYSICAL EXAMINATION: VITAL SIGNS: Temperature 98 degrees, blood pressure 122/52, pulse 86, respiratory rate 18. HEENT: No pale conjunctivae. No icterus. NECK: No lymphadenopathy. CHEST: Clear. HEART: S1 and S2. ABDOMEN: Soft and nontender. EXTREMITIES: No cyanosis at this time. SKIN: No rash or wound. NEUROLOGIC: Alert. LABORATORY AND DIAGNOSTIC DATA: At the time of admission 28 and today is 17, hemoglobin 11, platelet 283. UA 10 to 15 white blood cells. BUN 34 and creatinine 1.1. ALT, AST, and alkaline phosphatase unremarkable. Urine culture pending. CT of abdomen and pelvis, diffuse mildly distended small bowel, minimal nonspecific bilateral perinephric fat stranding. ASSESSMENT: The patient is a 67-year-old female with leukocytosis. 1. Rule out urinary tract infection. 2. Pyuria. 3. CT scan showing perinephric stranding. 4. Rule out bacteremia. PLAN: 1. We will continue the patient on cefepime, discontinue vancomycin. 2. Monitor CBC. 3. Monitor BMP. 4. Monitor cultures (blood and urine). 5. Monitor CBC and BMP. 6. Monitor chest x-ray. 7. Based on patient's clinical course and labs, we will do further recommendations. Thank you, Dr. Dorian Henriquez, for allowing me to participate in the care of this patient. I will follow the patient with you during this hospitalization. Franky Brandt M.D. DR: Mariola JOB#: [id number] CC:
[2017-10-03 00:14] VITALS: BP 140/73
[2017-10-03 03:45] VITALS: BP 125/63
[2017-10-03] MEDS ORDERED: LORazepam 1mg tab ORAL PRN (04:15)
[2017-10-03] MEDS: NovoLOG Insulin Flexpen SUBQ SCH ×4 (06:22→21:14)
[2017-10-03 07:26] LABS: BASOPHILS % (AUTO) 0.7 % (0.0-2.0); EOSINOPHILS % (AUTO) 1.3 % (0.0-3.0); HEMATOCRIT 32.8 % (37.0-47.0); HEMOGLOBIN 11.3 G/DL (12.0-16.0); MEAN CORPUSCULAR VOLUME 86 FL (80-99); MONOCYTES % (AUTO) 4.4 % (1.0-10.0); NEUTROPHILS % (AUTO) 71.7 % (45.0-75.0); PLATELET COUNT 227 K/UL (150-450); RED BLOOD COUNT 3.82 M/UL (4.20-5.40); RED CELL DISTRIBUTION WIDTH 12.4 % (11.6-14.8); WHITE BLOOD COUNT 9.6 K/UL (4.8-10.8)
[2017-10-03 08:00] VITALS: BP 137/69
[2017-10-03 08:11] LABS: ALANINE AMINOTRANSFERASE 34 U/L (12-78); ALBUMIN 2.7 G/DL (3.4-5.0); ALBUMIN/GLOBULIN RATIO 0.8 (1.0-2.7); ALKALINE PHOSPHATASE 124 U/L (46-116); ANION GAP 6 mmol/L (5-15); ASPARTATE AMINO TRANSFERASE 25 U/L (15-37); BILIRUBIN,TOTAL 0.3 MG/DL (0.2-1.0); BLOOD UREA NITROGEN 23 mg/dL (7-18); CALCIUM 7.8 MG/DL (8.5-10.1); CARBON DIOXIDE 28 MMOL/L (21-32); CHLORIDE 105 MMOL/L (98-107); CREATININE 0.9 MG/DL (0.55-1.30); FERRITIN 73 NG/ML (8-388); PHOSPHORUS 3.4 MG/DL (2.5-4.9); POTASSIUM 4.7 MMOL/L (3.5-5.1); SODIUM 139 MMOL/L (136-145)
[2017-10-03 08:27] LABS: % IRON SATURATION 17 % (15-50); IRON 35 ug/dL (50-175); TOTAL IRON BINDING CAPACITY 211 ug/dL (250-450)
[2017-10-03] MEDS: Heparin 5000 units/ml inj SUBQ SCH ×2 (08:39→21:15)
[2017-10-03] MEDS: Cefepime HCl 2 GM in D5W 110 ML IV SCH ×2 (08:40→21:11)
--- NOTE | 2017-10-03 08:47 | General Progress Note ---
Assessment/Plan Problem List: (1) UTI (urinary tract infection) ICD Codes: N39.0 - Urinary tract infection, site not specified SNOMED: 51152643 (2) Diabetes mellitus ICD Codes: E11.9 - Type 2 diabetes mellitus without complications SNOMED: 54417359 (3) Ileus ICD Codes: K56.7 - Ileus, unspecified SNOMED: 828212230 (4) Partial small bowel obstruction ICD Codes: K56.600 - Partial intestinal obstruction, unspecified as to cause SNOMED: 813520032 (5) Abdominal pain ICD Codes: R10.9 - Unspecified abdominal pain SNOMED: 30087000 (6) Nausea & vomiting ICD Codes: R11.2 - Nausea with vomiting, unspecified SNOMED: 01345468 (7) Dehydration ICD Codes: E86.0 - Dehydration SNOMED: 93010762 Status: unchanged Assessment/Plan ot pt diet abx gi sx f/u cbc bmp am Subjective Constitutional: Reports: weakness Gastrointestinal/Abdominal: Reports: nausea Allergies: Coded Allergies: No Known Allergies (Unverified , 10/01/17) All Systems: reviewed and negative except above Subjective no vomit no bm yet Objective Last 24 Hour Vital Signs Date Time Temp Pulse Resp B/P (MAP) Pulse Ox O2 Delivery O2 Flow Rate FiO2 10/03/17 08:00 98.4 63 19 137/69 97 98.4 10/03/17 07:37 67 18 Room Air 21 10/03/17 03:45 97.5 63 20 125/63 94 Room Air 97.5 10/03/17 00:14 97.9 63 20 140/73 94 Room Air 97.9 10/02/17 23:55 69 18 Room Air 21 10/02/17 19:24 97.9 55 20 134/55 95 Room Air 97.9 67 10/02/17 16:50 98.1 64 18 150/73 95 98.1 10/02/17 16:00 98.2 65 20 117/67 96 Room Air 98.2 10/02/17 16:00 70 10/02/17 12:00 70 10/02/17 12:00 98.2 64 20 122/53 96 Room Air 98.2 Intake and Output 10/02/17 10/03/17 19:00 07:00 Intake Total 350 ml Balance 350 ml Intake Oral 240 ml IV Total 110 ml # Voids 1 4 Laboratory Tests 10/03/17 05:00: White Blood Count 9.6, Red Blood Count 3.82L, Hemoglobin 11.3L, Hematocrit 32.8L , Mean Corpuscular Volume 86, Mean Corpuscular Hemoglobin 29.7, Mean Corpuscular Hemoglobin Concent 34.6, Red Cell Distribution Width 12.4, Platelet Count 227, Mean Platelet Volume 6.4L, Neutrophils (%) (Auto) 71.7, Lymphocytes ( %) (Auto) 22.0, Monocytes (%) (Auto) 4.4, Eosinophils (%) (Auto) 1.3, Basophils (%) (Auto) 0.7, Erythrocyte Sedimentation Rate 45H, Reticulocyte Count 1.1, Prothrombin Time 10.1, Prothromb Time International Ratio 1.0, Activated Partial Thromboplast Time 26, Sodium Level 139, Potassium Level 4.7, Chloride Level 105, Carbon Dioxide Level 28, Anion Gap 6, Blood Urea Nitrogen 23H, Creatinine 0.9, Estimat Glomerular Filtration Rate > 60, Glucose Level 265H, Calcium Level 7.8L, Phosphorus Level 3.4, Magnesium Level 1.3L, Iron Level 35L, Total Iron Binding Capacity 211L, Percent Iron Saturation 17, Unsaturated Iron Binding 176, Ferritin 73, Total Bilirubin 0.3, Aspartate Amino Transf (AST/SGOT ) 25, Alanine Aminotransferase (ALT/SGPT) 34, Alkaline Phosphatase 124H, C- Reactive Protein, Quantitative 3.5H, Total Protein 6.0L, Albumin 2.7L, Globulin 3.3, Albumin/Globulin Ratio 0.8L, Vitamin B12 Level 485, Folate 12.9, Thyroid Stimulating Hormone (TSH) 2.864, Free Thyroxine 1.04 Height (Feet): 6 Height (Inches): 6.00 Weight (Pounds): 155 General Appearance: alert EENT: normal ENT inspection Neck: normal alignment Cardiovascular: normal peripheral pulses, normal rate, regular rhythm Respiratory/Chest: chest wall non-tender, lungs clear, no respiratory distress Abdomen: non tender, soft, hypoactive bowel sounds Extremities: normal inspection Edema: no edema noted Arm (L), no edema noted Arm (R), no edema noted Leg (L), no edema noted Leg (R), no edema noted Pedal (L), no edema noted Pedal (R), no edema noted Generalized Neurologic: responsive, motor weakness Skin: normal pigmentation, warm/dry LYDIA ASKEW Oct 03, 2017 08:47
[2017-10-03] MEDS ORDERED: Miralax 17gm pkt ORAL PRN (10:45)
--- NOTE | 2017-10-03 11:14 | General Surgery Progress Note ---
General Surgery-Progress Note Subjective Symptoms: improved, pain absent, tolerating diet, passing flatus, BM Additional Comments doing well. no acute events. comfortable. no pain. no n/v/f/c. no abdominal discomfort. Objective Last 24 Hour Vital Signs Date Time Temp Pulse Resp B/P (MAP) Pulse Ox O2 Delivery O2 Flow Rate FiO2 10/03/17 08:00 98.4 63 19 137/69 97 98.4 10/03/17 07:37 67 18 Room Air 21 10/03/17 03:45 97.5 63 20 125/63 94 Room Air 97.5 10/03/17 00:14 97.9 63 20 140/73 94 Room Air 97.9 10/02/17 23:55 69 18 Room Air 21 10/02/17 19:24 97.9 55 20 134/55 95 Room Air 97.9 67 10/02/17 16:50 98.1 64 18 150/73 95 98.1 10/02/17 16:00 98.2 65 20 117/67 96 Room Air 98.2 10/02/17 16:00 70 10/02/17 12:00 70 10/02/17 12:00 98.2 64 20 122/53 96 Room Air 98.2 I&O Intake and Output 10/02/17 10/03/17 19:00 07:00 Intake Total 350 ml Balance 350 ml Intake Oral 240 ml IV Total 110 ml # Voids 1 4 Drains: none Cardiovascular: RSR Respiratory: clear Abdomen: soft, flat, non-tender, present bowel sounds Extremities: no cyanosis Laboratory Tests Test 10/03/17 05:00 White Blood Count 9.6 K/UL (4.8-10.8) Red Blood Count 3.82 M/UL (4.20-5.40) L Hemoglobin 11.3 G/DL (12.0-16.0) L Hematocrit 32.8 % (37.0-47.0) L Mean Corpuscular Volume 86 FL (80-99) Mean Corpuscular Hemoglobin 29.7 PG (27.0-31.0) Mean Corpuscular Hemoglobin Concent 34.6 G/DL (32.0-36.0) Red Cell Distribution Width 12.4 % (11.6-14.8) Platelet Count 227 K/UL (150-450) Mean Platelet Volume 6.4 FL (6.5-10.1) L Neutrophils (%) (Auto) 71.7 % (45.0-75.0) Lymphocytes (%) (Auto) 22.0 % (20.0-45.0) Monocytes (%) (Auto) 4.4 % (1.0-10.0) Eosinophils (%) (Auto) 1.3 % (0.0-3.0) Basophils (%) (Auto) 0.7 % (0.0-2.0) Erythrocyte Sedimentation Rate 45 MM/HR (0-30) H Reticulocyte Count 1.1 % (0.0-2.0) Prothrombin Time 10.1 SEC (9.30-11.50) Prothromb Time International Ratio 1.0 (0.9-1.1) Activated Partial Thromboplast Time 26 SEC (23-33) Sodium Level 139 MMOL/L (136-145) Potassium Level 4.7 MMOL/L (3.5-5.1) Chloride Level 105 MMOL/L (98-107) Carbon Dioxide Level 28 MMOL/L (21-32) Anion Gap 6 mmol/L (5-15) Blood Urea Nitrogen 23 mg/dL (7-18) H Creatinine 0.9 MG/DL (0.55-1.30) Estimat Glomerular Filtration Rate > 60 mL/min (>60) Glucose Level 265 MG/DL (74-106) H Calcium Level 7.8 MG/DL (8.5-10.1) L Phosphorus Level 3.4 MG/DL (2.5-4.9) Magnesium Level 1.3 MG/DL (1.8-2.4) L Iron Level 35 ug/dL (50-175) L Total Iron Binding Capacity 211 ug/dL (250-450) L Percent Iron Saturation 17 % (15-50) Unsaturated Iron Binding 176 ug/dL (112-346) Ferritin 73 NG/ML (8-388) Total Bilirubin 0.3 MG/DL (0.2-1.0) Aspartate Amino Transf (AST/SGOT) 25 U/L (15-37) Alanine Aminotransferase (ALT/SGPT) 34 U/L (12-78) Alkaline Phosphatase 124 U/L (46-116) H C-Reactive Protein, Quantitative 3.5 mg/dL (0.00-0.90) H Total Protein 6.0 G/DL (6.4-8.2) L Albumin 2.7 G/DL (3.4-5.0) L Globulin 3.3 g/dL Albumin/Globulin Ratio 0.8 (1.0-2.7) L Vitamin B12 Level 485 PG/ML (193-986) Folate 12.9 NG/ML (8.6-58.9) Thyroid Stimulating Hormone (TSH) 2.864 uiU/mL (0.358-3.740) Free Thyroxine 1.04 NG/DL (0.76-1.46) Plan Problems: (1) Partial small bowel obstruction Assessment & Plan: 67F possible partial SBO. nausea, emesis, diarrhea resulting in dehydration and syncope. afebrile, HD stable, leukocytosis on admission, labs abnormal on admission. CT results reviewed since admission abdominal pain resolved. labs improved. tolerating diet. no signs or symptoms of sbo likely UTI etiology of leukocytosis. on IV Abx diet as tolerated no surgical intervention necessary. thank you for this consult. will follow with marquez. Pb Laureano Oct 03, 2017 11:14
[2017-10-03 12:00] VITALS: BP 150/65
--- NOTE | 2017-10-03 13:07 | General Progress Note ---
Assessment/Plan Problem List: (1) Anemia ICD Codes: D64.9 - Anemia, unspecified SNOMED: 760735022 (2) Weight loss ICD Codes: R63.4 - Abnormal weight loss SNOMED: 42596354, 948229091 (3) Diabetes mellitus ICD Codes: E11.9 - Type 2 diabetes mellitus without complications SNOMED: 44317856 (4) Ileus ICD Codes: K56.7 - Ileus, unspecified SNOMED: 280909281 (5) Abdominal pain ICD Codes: R10.9 - Unspecified abdominal pain SNOMED: 64022318 (6) Nausea & vomiting ICD Codes: R11.2 - Nausea with vomiting, unspecified SNOMED: 21894347 Assessment/Plan bowel regimen anemia work up tumoe markers stool ob tsh plan possible EGd and colonoscopy on Thursday Subjective ROS Limited/Unobtainable: Yes Allergies: Coded Allergies: No Known Allergies (Unverified , 10/01/17) Subjective no BM but passing gas Objective Last 24 Hour Vital Signs Date Time Temp Pulse Resp B/P (MAP) Pulse Ox O2 Delivery O2 Flow Rate FiO2 10/03/17 12:00 97.9 60 18 150/65 98 97.9 10/03/17 08:00 98.4 63 19 137/69 97 98.4 10/03/17 07:37 67 18 Room Air 21 10/03/17 03:45 97.5 63 20 125/63 94 Room Air 97.5 10/03/17 00:14 97.9 63 20 140/73 94 Room Air 97.9 10/02/17 23:55 69 18 Room Air 21 10/02/17 19:24 97.9 55 20 134/55 95 Room Air 97.9 67 10/02/17 16:50 98.1 64 18 150/73 95 98.1 10/02/17 16:00 98.2 65 20 117/67 96 Room Air 98.2 10/02/17 16:00 70 Intake and Output 10/02/17 10/03/17 19:00 07:00 Intake Total 350 ml Balance 350 ml Intake Oral 240 ml IV Total 110 ml # Voids 1 4 Laboratory Tests 10/03/17 05:00: White Blood Count 9.6, Red Blood Count 3.82L, Hemoglobin 11.3L, Hematocrit 32.8L , Mean Corpuscular Volume 86, Mean Corpuscular Hemoglobin 29.7, Mean Corpuscular Hemoglobin Concent 34.6, Red Cell Distribution Width 12.4, Platelet Count 227, Mean Platelet Volume 6.4L, Neutrophils (%) (Auto) 71.7, Lymphocytes ( %) (Auto) 22.0, Monocytes (%) (Auto) 4.4, Eosinophils (%) (Auto) 1.3, Basophils (%) (Auto) 0.7, Erythrocyte Sedimentation Rate 45H, Reticulocyte Count 1.1, Prothrombin Time 10.1, Prothromb Time International Ratio 1.0, Activated Partial Thromboplast Time 26, Sodium Level 139, Potassium Level 4.7, Chloride Level 105, Carbon Dioxide Level 28, Anion Gap 6, Blood Urea Nitrogen 23H, Creatinine 0.9, Estimat Glomerular Filtration Rate > 60, Glucose Level 265H, Calcium Level 7.8L, Phosphorus Level 3.4, Magnesium Level 1.3L, Iron Level 35L, Total Iron Binding Capacity 211L, Percent Iron Saturation 17, Unsaturated Iron Binding 176, Ferritin 73, Total Bilirubin 0.3, Aspartate Amino Transf (AST/SGOT ) 25, Alanine Aminotransferase (ALT/SGPT) 34, Alkaline Phosphatase 124H, C- Reactive Protein, Quantitative 3.5H, Total Protein 6.0L, Albumin 2.7L, Globulin 3.3, Albumin/Globulin Ratio 0.8L, Vitamin B12 Level 485, Folate 12.9, Thyroid Stimulating Hormone (TSH) 2.864, Free Thyroxine 1.04 Height (Feet): 6 Height (Inches): 6.00 Weight (Pounds): 155 General Appearance: alert EENT: normal ENT inspection Neck: supple Cardiovascular: normal rate Respiratory/Chest: decreased breath sounds Abdomen: soft, hyperactive bowel sounds, distended Extremities: non-tender ANNA RODRIGUEZ Oct 03, 2017 13:07
[2017-10-03] MEDS ORDERED: Lactulose 20gm/30ml UDC ORAL ONE (13:30)
--- NOTE | 2017-10-03 14:46 | Pulmonology Progress Note ---
Assessment/Plan Problems: (1) UTI (urinary tract infection) (2) Ileus (3) Nausea & vomiting (4) Weight loss (5) Anemia (6) Diabetes mellitus Assessment/Plan advance diet tumor marker GI f/u check electrolytes all meds and labs reviewed continue current regimne endoscopy on thursday Subjective ROS Limited/Unobtainable: No Constitutional: Reports: no symptoms HEENT: Repors: no symptoms Respiratory: Reports: no symptoms Allergies: Coded Allergies: No Known Allergies (Unverified , 10/01/17) Objective Last 24 Hour Vital Signs Date Time Temp Pulse Resp B/P (MAP) Pulse Ox O2 Delivery O2 Flow Rate FiO2 10/03/17 12:00 97.9 60 18 150/65 98 97.9 10/03/17 08:00 98.4 63 19 137/69 97 98.4 10/03/17 07:37 67 18 Room Air 21 10/03/17 03:45 97.5 63 20 125/63 94 Room Air 97.5 10/03/17 00:14 97.9 63 20 140/73 94 Room Air 97.9 10/02/17 23:55 69 18 Room Air 21 10/02/17 19:24 97.9 55 20 134/55 95 Room Air 97.9 67 10/02/17 16:50 98.1 64 18 150/73 95 98.1 10/02/17 16:00 98.2 65 20 117/67 96 Room Air 98.2 10/02/17 16:00 70 Intake and Output 10/02/17 10/03/17 19:00 07:00 Intake Total 350 ml Balance 350 ml Intake Oral 240 ml IV Total 110 ml # Voids 1 4 Objective General Appearance: cachetic HEENT: normocephalic, atraumatic Respiratory/Chest: chest wall non-tender, lungs clear Cardiovascular: normal rate, regular rhythm Abdomen: normal bowel sounds, soft, non tender, non distended Genitourinary: normal external genitalia Extremities: no cyanosis Skin: no rash 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 Complete Laboratory Tests 10/03/17 05:00: White Blood Count 9.6, Red Blood Count 3.82L, Hemoglobin 11.3L, Hematocrit 32.8L , Mean Corpuscular Volume 86, Mean Corpuscular Hemoglobin 29.7, Mean Corpuscular Hemoglobin Concent 34.6, Red Cell Distribution Width 12.4, Platelet Count 227, Mean Platelet Volume 6.4L, Neutrophils (%) (Auto) 71.7, Lymphocytes ( %) (Auto) 22.0, Monocytes (%) (Auto) 4.4, Eosinophils (%) (Auto) 1.3, Basophils (%) (Auto) 0.7, Erythrocyte Sedimentation Rate 45H, Reticulocyte Count 1.1, Prothrombin Time 10.1, Prothromb Time International Ratio 1.0, Activated Partial Thromboplast Time 26, Sodium Level 139, Potassium Level 4.7, Chloride Level 105, Carbon Dioxide Level 28, Anion Gap 6, Blood Urea Nitrogen 23H, Creatinine 0.9, Estimat Glomerular Filtration Rate > 60, Glucose Level 265H, Calcium Level 7.8L, Phosphorus Level 3.4, Magnesium Level 1.3L, Iron Level 35L, Total Iron Binding Capacity 211L, Percent Iron Saturation 17, Unsaturated Iron Binding 176, Ferritin 73, Total Bilirubin 0.3, Aspartate Amino Transf (AST/SGOT ) 25, Alanine Aminotransferase (ALT/SGPT) 34, Alkaline Phosphatase 124H, C- Reactive Protein, Quantitative 3.5H, Total Protein 6.0L, Albumin 2.7L, Globulin 3.3, Albumin/Globulin Ratio 0.8L, Vitamin B12 Level 485, Folate 12.9, Thyroid Stimulating Hormone (TSH) 2.864, Free Thyroxine 1.04 Current Medications Medications (Trade) Dose Ordered Sig/Grace Route PRN Reason Start Time Stop Time Status Last Admin Dose Admin Acetaminophen (Tylenol) 650 mg Q4H PRN ORAL fever 10/02/17 18:30 10/31/17 22:29 Albuterol/ Ipratropium (Albuterol/ Ipratropium) 3 ml EVERY 4 HOURS PRN HHN Shortness of Breath 10/02/17 17:00 10/06/17 22:29 Cefepime HCl 2 gm/ Dextrose 110 ml @ 220 mls/hr EVERY 12 HOURS IV 10/02/17 21:00 10/09/17 08:59 10/03/17 08:40 Dextrose (Dextrose 50%) 25 ml STAT PRN IV Hypoglycemia 10/03/17 12:45 10/31/17 22:29 Dextrose (Dextrose 50%) 50 ml STAT PRN IV Hypoglycemia 10/03/17 12:45 11/01/17 12:44 Docusate Sodium (Colace) 100 mg TWICE A DAY ORAL 10/03/17 18:00 11/02/17 17:59 Heparin Sodium (Porcine) (Heparin 5000 units/ml) 5,000 units EVERY 12 HOURS SUBQ 10/02/17 21:00 11/01/17 08:59 10/03/17 08:39 Insulin Aspart (NovoLOG) BEFORE MEALS AND HS SUBQ 10/02/17 21:00 11/01/17 06:29 10/03/17 11:30 Lorazepam (Ativan) 1 mg Q6H PRN ORAL For Anxiety 10/03/17 04:15 10/10/17 04:14 Morphine Sulfate (Morphine Sulfate) 2 mg EVERY 4 HOURS PRN IVP Moderate Pain (Pain Scale 4-6) 10/02/17 17:00 10/08/17 22:29 Nitroglycerin (Ntg) 0.4 mg Q5M PRN SL Prn Chest Pain 10/02/17 17:00 10/31/17 22:29 Ondansetron HCl (Zofran) 4 mg Q6H PRN IVP Nausea & Vomiting 10/02/17 22:30 10/31/17 22:29 Pantoprazole (Protonix) 40 mg DAILY ORAL 10/03/17 09:00 11/02/17 08:59 10/03/17 08:38 Polyethylene Glycol (Miralax) 17 gm DAILYPRN PRN ORAL Constipation 10/03/17 10:45 11/01/17 10:44 Risperidone (RisperDAL) 0.5 mg QPM ORAL 10/03/17 16:30 11/02/17 16:29 Temazepam (Restoril) 15 mg HSPRN PRN ORAL Insomnia 10/02/17 22:30 10/08/17 22:29 Trazodone HCl (Desyrel) 50 mg BEDTIME ORAL 10/03/17 21:00 11/02/17 20:59 Raymond Rosen MD Oct 03, 2017 14:45
[2017-10-03] MEDS ORDERED: Tubing IV Secondary IV ONE (14:54)
[2017-10-03 16:00] VITALS: BP 136/57
[2017-10-03] MEDS: Docusate 100mg cap ORAL SCH (17:01)
--- NOTE | 2017-10-03 19:45 | Consultation ---
DATE OF CONSULTATION: 10/03/2017 INITIAL PSYCHIATRIC EVALUATION CONSULTING PHYSICIAN: Douglas Willson M.D. REFERRING PHYSICIAN: Dorian Henriquez D.O. HISTORY OF PRESENT ILLNESS: This is a 67-year-old female patient with generalized weakness. That is the reason why this patient was admitted to [facility], but she does admit that she has a previous diagnosis of depression with psychotic features. She mentioned that she was previously taking Risperdal at bedtime as well as trazodone and she would like to continue those medications as they have not been prescribed here in the hospital. ALLERGIES: She has no known drug allergies. MEDICAL HISTORY: She has history of hypertension, diabetes, and generalized weakness. SOCIAL HISTORY: She lives at [facility]. Financially supported by [facility] and Medicare. SUBSTANCE ABUSE HISTORY: Denies use of any drug or alcohol use at this time. FAMILY PSYCHIATRIC HISTORY: Denies. MENTAL STATUS EXAMINATION: This is a 67-year-old female. Appearance is disheveled, irritable, agitated. Affect guarded and restricted. Intellect poor. Mood depressed and anxious. Motor activity, psychomotor agitation. Attention span is poor. Orientation x2. Speech is low volume and slurred. Thought process is disorganized. Thought content, slight paranoid delusions. Her insight and judgment is fair. DIAGNOSIS: 1. Major depressive disorder with psychotic features. 2. Generalized weakness, diabetes, hypertension. 3. Psychosocial stressors, financial. PLAN: My plan for this patient is I am going to start her on a psychotropic medication regimen of Risperdal. Start her at a low dose as she mentioned that she was taking low dose at the facility. I am going to start her at 0.5 mg every evening for the Risperdal and then I am also going to order a dose of trazodone at a dose of 50 mg nightly. I am also going to order Ativan at a dose of 1 mg every six hours p.r.n. anxiety and agitation and I am also going to provide 20 minutes of supportive therapy. Again, 20 minutes supportive therapy provided. Encouraged her to interact appropriately with staff and other patients. Chart has been reviewed and discussed with staff. I would like to thank Dr. Dorian Henriquez for this interesting consultation. I will be happy to follow this patient with you throughout her hospital course and the patient was seen and assessed at bedside. Douglas Willson M.D. DR: Elliot JOB#: [id number] CC:
[2017-10-03 20:17] VITALS: BP 154/85
[2017-10-03] MEDS: TraZODone 50mg tab ORAL SCH (21:11)
[2017-10-04] VITALS: BP 146/76
[2017-10-04 04:00] VITALS: BP 130/73
[2017-10-04] MEDS: NovoLOG Insulin Flexpen SUBQ SCH ×4 (06:27→21:00)
--- NOTE | 2017-10-04 07:17 | General Progress Note ---
Assessment/Plan Problem List: (1) Anemia ICD Codes: D64.9 - Anemia, unspecified SNOMED: 084201844 (2) Weight loss ICD Codes: R63.4 - Abnormal weight loss SNOMED: 75005075, 936434580 (3) Diabetes mellitus ICD Codes: E11.9 - Type 2 diabetes mellitus without complications SNOMED: 02046915 (4) Ileus ICD Codes: K56.7 - Ileus, unspecified SNOMED: 856503434 (5) Abdominal pain ICD Codes: R10.9 - Unspecified abdominal pain SNOMED: 51161715 (6) Nausea & vomiting ICD Codes: R11.2 - Nausea with vomiting, unspecified SNOMED: 63281331 Assessment/Plan bowel regimen anemia work up tumor markers stool ob plan possible EGD and colonoscopy on Thursday Subjective ROS Limited/Unobtainable: Yes Allergies: Coded Allergies: No Known Allergies (Unverified , 10/01/17) Subjective no event Objective Last 24 Hour Vital Signs Date Time Temp Pulse Resp B/P (MAP) Pulse Ox O2 Delivery O2 Flow Rate FiO2 10/04/17 04:00 97.5 58 20 130/73 97 97.5 10/04/17 00:00 97.7 63 20 146/76 97 97.7 10/03/17 20:17 96.6 67 18 154/85 95 Room Air 96.6 10/03/17 19:00 62 18 Room Air 21 10/03/17 16:00 Room Air 10/03/17 16:00 98.1 63 20 136/57 95 98.1 10/03/17 12:00 97.9 60 18 150/65 98 97.9 10/03/17 12:00 Room Air 10/03/17 08:00 98.4 63 19 137/69 97 98.4 10/03/17 08:00 Room Air 10/03/17 07:37 67 18 Room Air 21 Intake and Output 10/03/17 10/04/17 19:00 07:00 Intake Total 1000 ml 350 ml Balance 1000 ml 350 ml Intake Oral 780 ml 240 ml IV Total 220 ml 110 ml # Voids 4 2 Height (Feet): 6 Height (Inches): 6.00 Weight (Pounds): 155 General Appearance: no apparent distress EENT: normal ENT inspection Neck: supple Cardiovascular: normal rate Respiratory/Chest: decreased breath sounds Abdomen: normal bowel sounds, non tender, soft Extremities: non-tender ANNA RODRIGUEZ Oct 04, 2017 07:17
--- NOTE | 2017-10-04 07:18 | General Progress Note ---
Assessment/Plan Problem List: (1) UTI (urinary tract infection) ICD Codes: N39.0 - Urinary tract infection, site not specified SNOMED: 98788942 (2) Diabetes mellitus ICD Codes: E11.9 - Type 2 diabetes mellitus without complications SNOMED: 53876984 (3) Ileus ICD Codes: K56.7 - Ileus, unspecified SNOMED: 788280698 (4) Partial small bowel obstruction ICD Codes: K56.600 - Partial intestinal obstruction, unspecified as to cause SNOMED: 418843650 (5) Abdominal pain ICD Codes: R10.9 - Unspecified abdominal pain SNOMED: 15837145 (6) Nausea & vomiting ICD Codes: R11.2 - Nausea with vomiting, unspecified SNOMED: 71469387 (7) Dehydration ICD Codes: E86.0 - Dehydration SNOMED: 25442096 Status: unchanged Assessment/Plan ot pt diet abx gi sx f/u cbc bmp am adv diet if possible Subjective Constitutional: Reports: weakness Allergies: Coded Allergies: No Known Allergies (Unverified , 10/01/17) All Systems: reviewed and negative except above Subjective no vomit no bm yet Objective Last 24 Hour Vital Signs Date Time Temp Pulse Resp B/P (MAP) Pulse Ox O2 Delivery O2 Flow Rate FiO2 10/04/17 04:00 97.5 58 20 130/73 97 97.5 10/04/17 00:00 97.7 63 20 146/76 97 97.7 10/03/17 20:17 96.6 67 18 154/85 95 Room Air 96.6 10/03/17 19:00 62 18 Room Air 21 10/03/17 16:00 Room Air 10/03/17 16:00 98.1 63 20 136/57 95 98.1 10/03/17 12:00 97.9 60 18 150/65 98 97.9 10/03/17 12:00 Room Air 10/03/17 08:00 98.4 63 19 137/69 97 98.4 10/03/17 08:00 Room Air 10/03/17 07:37 67 18 Room Air 21 Intake and Output 10/03/17 10/04/17 19:00 07:00 Intake Total 1000 ml 350 ml Balance 1000 ml 350 ml Intake Oral 780 ml 240 ml IV Total 220 ml 110 ml # Voids 4 2 Height (Feet): 6 Height (Inches): 6.00 Weight (Pounds): 155 General Appearance: lethargic EENT: normal ENT inspection Neck: normal alignment Cardiovascular: normal peripheral pulses, normal rate, regular rhythm Respiratory/Chest: chest wall non-tender, lungs clear, normal breath sounds Abdomen: non tender, soft, hypoactive bowel sounds Extremities: normal inspection Edema: no edema noted Arm (L), no edema noted Arm (R), no edema noted Leg (L), no edema noted Leg (R), no edema noted Pedal (L), no edema noted Pedal (R), no edema noted Generalized Neurologic: responsive, motor weakness Skin: normal pigmentation, warm/dry LYDIA ASKEW Oct 04, 2017 07:18
[2017-10-04 07:38] LABS: BASOPHILS % (AUTO) 0.8 % (0.0-2.0); HEMATOCRIT 33.8 % (37.0-47.0); HEMOGLOBIN 11.6 G/DL (12.0-16.0); LYMPHOCYTES % (AUTO) 26.2 % (20.0-45.0); MEAN CORPUSCULAR VOLUME 86 FL (80-99); MONOCYTES % (AUTO) 5.9 % (1.0-10.0); PLATELET COUNT 246 K/UL (150-450); RED BLOOD COUNT 3.95 M/UL (4.20-5.40); RED CELL DISTRIBUTION WIDTH 12.2 % (11.6-14.8); WHITE BLOOD COUNT 7.2 K/UL (4.8-10.8)
[2017-10-04] MEDS: metFORMIN 500mg tab ORAL SCH ×3 (07:54→16:24)
[2017-10-04 07:55] VITALS: BP 150/70
[2017-10-04 08:05] LABS: % IRON SATURATION 34 % (15-50); IRON 81 ug/dL (50-175); TOTAL IRON BINDING CAPACITY 241 ug/dL (250-450)
[2017-10-04 08:14] LABS: ALANINE AMINOTRANSFERASE 51 U/L (12-78); ALBUMIN 2.7 G/DL (3.4-5.0); ALBUMIN/GLOBULIN RATIO 0.7 (1.0-2.7); ALKALINE PHOSPHATASE 134 U/L (46-116); ANION GAP 8 mmol/L (5-15); ASPARTATE AMINO TRANSFERASE 37 U/L (15-37); BILIRUBIN,TOTAL 0.3 MG/DL (0.2-1.0); BLOOD UREA NITROGEN 15 mg/dL (7-18); CALCIUM 8.1 MG/DL (8.5-10.1); CARBON DIOXIDE 24 MMOL/L (21-32); CHLORIDE 106 MMOL/L (98-107); CREATININE 0.7 MG/DL (0.55-1.30); POTASSIUM 4.1 MMOL/L (3.5-5.1); SODIUM 138 MMOL/L (136-145)
[2017-10-04] MEDS: Docusate 100mg cap ORAL SCH ×2 (08:59→17:41)
[2017-10-04] MEDS: GlipiZIDE 5mg tab ORAL SCH ×2 (08:59→17:41)
[2017-10-04] MEDS: Cefepime HCl 2 GM in D5W 110 ML IV SCH (08:59)
[2017-10-04] MEDS: Heparin 5000 units/ml inj SUBQ SCH ×2 (09:00→20:54)
--- NOTE | 2017-10-04 10:58 | General Surgery Progress Note ---
General Surgery-Progress Note Subjective Symptoms: improved Additional Comments no acute events. comfortable. no pain. no n/v/f/c. Objective Last 24 Hour Vital Signs Date Time Temp Pulse Resp B/P (MAP) Pulse Ox O2 Delivery O2 Flow Rate FiO2 10/04/17 07:55 97.9 70 18 150/70 99 97.9 10/04/17 07:50 70 20 Room Air 21 10/04/17 04:00 97.5 58 20 130/73 97 97.5 10/04/17 00:00 97.7 63 20 146/76 97 97.7 10/03/17 20:17 96.6 67 18 154/85 95 Room Air 96.6 10/03/17 19:00 62 18 Room Air 21 10/03/17 16:00 Room Air 10/03/17 16:00 98.1 63 20 136/57 95 98.1 10/03/17 12:00 97.9 60 18 150/65 98 97.9 10/03/17 12:00 Room Air I&O Intake and Output 10/03/17 10/04/17 19:00 07:00 Intake Total 1000 ml 350 ml Balance 1000 ml 350 ml Intake Oral 780 ml 240 ml IV Total 220 ml 110 ml # Voids 4 2 Cardiovascular: RSR Respiratory: clear Abdomen: soft, flat, non-tender, present bowel sounds Extremities: no edema, no tenderness, no cyanosis Laboratory Tests Test 10/04/17 05:05 White Blood Count 7.2 K/UL (4.8-10.8) Red Blood Count 3.95 M/UL (4.20-5.40) L Hemoglobin 11.6 G/DL (12.0-16.0) L Hematocrit 33.8 % (37.0-47.0) L Mean Corpuscular Volume 86 FL (80-99) Mean Corpuscular Hemoglobin 29.4 PG (27.0-31.0) Mean Corpuscular Hemoglobin Concent 34.3 G/DL (32.0-36.0) Red Cell Distribution Width 12.2 % (11.6-14.8) Platelet Count 246 K/UL (150-450) Mean Platelet Volume 7.4 FL (6.5-10.1) Neutrophils (%) (Auto) 65.0 % (45.0-75.0) Lymphocytes (%) (Auto) 26.2 % (20.0-45.0) Monocytes (%) (Auto) 5.9 % (1.0-10.0) Eosinophils (%) (Auto) 2.0 % (0.0-3.0) Basophils (%) (Auto) 0.8 % (0.0-2.0) Sodium Level 138 MMOL/L (136-145) Potassium Level 4.1 MMOL/L (3.5-5.1) Chloride Level 106 MMOL/L (98-107) Carbon Dioxide Level 24 MMOL/L (21-32) Anion Gap 8 mmol/L (5-15) Blood Urea Nitrogen 15 mg/dL (7-18) Creatinine 0.7 MG/DL (0.55-1.30) Estimat Glomerular Filtration Rate > 60 mL/min (>60) Glucose Level 242 MG/DL (74-106) H Calcium Level 8.1 MG/DL (8.5-10.1) L Iron Level 81 ug/dL (50-175) Total Iron Binding Capacity 241 ug/dL (250-450) L Percent Iron Saturation 34 % (15-50) Unsaturated Iron Binding 160 ug/dL (112-346) Total Bilirubin 0.3 MG/DL (0.2-1.0) Aspartate Amino Transf (AST/SGOT) 37 U/L (15-37) Alanine Aminotransferase (ALT/SGPT) 51 U/L (12-78) Alkaline Phosphatase 134 U/L (46-116) H Total Protein 6.5 G/DL (6.4-8.2) Albumin 2.7 G/DL (3.4-5.0) L Globulin 3.8 g/dL Albumin/Globulin Ratio 0.7 (1.0-2.7) L Vitamin B12 Level 477 PG/ML (193-986) Folate 14.0 NG/ML (8.6-58.9) Free Thyroxine 1.10 NG/DL (0.76-1.46) Plan Problems: (1) Partial small bowel obstruction Assessment & Plan: 67F possible partial SBO. nausea, emesis, diarrhea resulting in dehydration and syncope. afebrile, HD stable, leukocytosis on admission, labs abnormal on admission. CT results reviewed since admission abdominal pain resolved. labs improved. tolerating diet. no signs or symptoms of sbo likely UTI etiology of leukocytosis. on IV Abx diet as tolerated no surgical intervention necessary. possible endo/colo Thursday as work up for anemia. thank you for this consult. will follow with recs. Pb Laureano Oct 04, 2017 10:58
[2017-10-04 11:46] VITALS: BP 148/78
[2017-10-04] MEDS: cefTRIAXone 1gm/D5W 55ml IVPB SCH ×2 (11:46)
--- NOTE | 2017-10-04 14:12 | Pulmonology Progress Note ---
Assessment/Plan Problems: (1) UTI (urinary tract infection) (2) Ileus (3) Nausea & vomiting (4) Weight loss (5) Anemia (6) Diabetes mellitus Assessment/Plan advance diet tumor marker GI f/u check electrolytes all meds and labs reviewed continue current regimne endoscopy on thursday Subjective ROS Limited/Unobtainable: No Constitutional: Reports: no symptoms HEENT: Repors: no symptoms Respiratory: Reports: no symptoms Allergies: Coded Allergies: No Known Allergies (Unverified , 10/01/17) Objective Last 24 Hour Vital Signs Date Time Temp Pulse Resp B/P (MAP) Pulse Ox O2 Delivery O2 Flow Rate FiO2 10/04/17 11:46 98.2 59 18 148/78 97 98.2 10/04/17 07:55 97.9 70 18 150/70 99 97.9 10/04/17 07:50 70 20 Room Air 21 10/04/17 04:00 97.5 58 20 130/73 97 97.5 10/04/17 00:00 97.7 63 20 146/76 97 97.7 10/03/17 20:17 96.6 67 18 154/85 95 Room Air 96.6 10/03/17 19:00 62 18 Room Air 21 10/03/17 16:00 Room Air 10/03/17 16:00 98.1 63 20 136/57 95 98.1 Intake and Output 10/03/17 10/04/17 19:00 07:00 Intake Total 1000 ml 350 ml Balance 1000 ml 350 ml Intake Oral 780 ml 240 ml IV Total 220 ml 110 ml # Voids 4 2 Objective General Appearance: cachetic HEENT: normocephalic, atraumatic Respiratory/Chest: chest wall non-tender, lungs clear Cardiovascular: normal rate, regular rhythm Abdomen: normal bowel sounds, soft, non tender, non distended Genitourinary: normal external genitalia Extremities: no cyanosis Skin: no rash 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 Complete 10/01/17 18:30 Urine,Clean Catch Urine Culture - Final Escherichia Coli Mixed Gram Positive Organism Complete 10/01/17 21:00 Rectum VRE Culture - Final NO VANCOMYCIN RESISTANT ENTEROCOCCUS ... Complete Laboratory Tests 10/04/17 05:05: White Blood Count 7.2, Red Blood Count 3.95L, Hemoglobin 11.6L, Hematocrit 33.8L , Mean Corpuscular Volume 86, Mean Corpuscular Hemoglobin 29.4, Mean Corpuscular Hemoglobin Concent 34.3, Red Cell Distribution Width 12.2, Platelet Count 246, Mean Platelet Volume 7.4, Neutrophils (%) (Auto) 65.0, Lymphocytes (% ) (Auto) 26.2, Monocytes (%) (Auto) 5.9, Eosinophils (%) (Auto) 2.0, Basophils ( %) (Auto) 0.8, Sodium Level 138, Potassium Level 4.1, Chloride Level 106, Carbon Dioxide Level 24, Anion Gap 8, Blood Urea Nitrogen 15, Creatinine 0.7, Estimat Glomerular Filtration Rate > 60, Glucose Level 242H, Calcium Level 8.1L , Iron Level 81, Total Iron Binding Capacity 241L, Percent Iron Saturation 34, Unsaturated Iron Binding 160, Total Bilirubin 0.3, Aspartate Amino Transf (AST/ SGOT) 37, Alanine Aminotransferase (ALT/SGPT) 51, Alkaline Phosphatase 134H, Total Protein 6.5, Albumin 2.7L, Globulin 3.8, Albumin/Globulin Ratio 0.7L, Vitamin B12 Level 477, Folate 14.0, Free Thyroxine 1.10 Current Medications Medications (Trade) Dose Ordered Sig/Grace Route PRN Reason Start Time Stop Time Status Last Admin Dose Admin Acetaminophen (Tylenol) 650 mg Q4H PRN ORAL fever 10/02/17 18:30 10/31/17 22:29 Albuterol/ Ipratropium (Albuterol/ Ipratropium) 3 ml EVERY 4 HOURS PRN HHN Shortness of Breath 10/02/17 17:00 10/06/17 22:29 Bisacodyl (Dulcolax) 10 mg ONCE ONCE ORAL 10/04/17 16:00 10/04/17 16:01 Ceftriaxone Sodium 1 gm/ Dextrose 55 ml @ 110 mls/hr Q24H IVPB 10/04/17 12:00 10/11/17 11:59 10/04/17 11:46 Dextrose (Dextrose 50%) 25 ml STAT PRN IV Hypoglycemia 10/03/17 12:45 10/31/17 22:29 Dextrose (Dextrose 50%) 50 ml STAT PRN IV Hypoglycemia 10/03/17 12:45 11/01/17 12:44 Dextrose/ Electrolytes 1,000 ml @ 75 mls/hr [id number] IV 10/04/17 16:00 11/03/17 15:59 Docusate Sodium (Colace) 100 mg TWICE A DAY ORAL 10/03/17 18:00 11/02/17 17:59 10/04/17 08:59 Glipizide (Glucotrol) 5 mg BID ORAL 10/04/17 09:00 11/03/17 08:59 10/04/17 08:59 Heparin Sodium (Porcine) (Heparin 5000 units/ml) 5,000 units EVERY 12 HOURS SUBQ 10/02/17 21:00 11/01/17 08:59 10/04/17 09:00 Insulin Aspart (NovoLOG) BEFORE MEALS AND HS SUBQ 10/02/17 21:00 11/01/17 06:29 10/04/17 11:40 Lorazepam (Ativan) 1 mg Q6H PRN ORAL For Anxiety 10/03/17 04:15 10/10/17 04:14 Metformin HCl (Glucophage) 500 mg TIAC ORAL 10/04/17 07:00 11/03/17 06:59 10/04/17 11:38 Morphine Sulfate (Morphine Sulfate) 2 mg EVERY 4 HOURS PRN IVP Moderate Pain (Pain Scale 4-6) 10/02/17 17:00 10/08/17 22:29 Nitroglycerin (Ntg) 0.4 mg Q5M PRN SL Prn Chest Pain 10/02/17 17:00 10/31/17 22:29 Ondansetron HCl (Zofran) 4 mg Q6H PRN IVP Nausea & Vomiting 10/02/17 22:30 10/31/17 22:29 Pantoprazole (Protonix) 40 mg DAILY ORAL 10/03/17 09:00 11/02/17 08:59 10/04/17 08:59 Polyethylene Glycol (Miralax) 17 gm DAILYPRN PRN ORAL Constipation 10/03/17 10:45 11/01/17 10:44 10/03/17 21:37 Polyethylene Glycol/ Electrolytes (Nulytely) 4,000 ml ONCE ONCE ORAL 10/04/17 16:00 10/04/17 16:01 Risperidone (RisperDAL) 0.5 mg QPM ORAL 10/03/17 16:30 11/02/17 16:29 10/03/17 16:56 Temazepam (Restoril) 15 mg HSPRN PRN ORAL Insomnia 10/02/17 22:30 10/08/17 22:29 Trazodone HCl (Desyrel) 50 mg BEDTIME ORAL 10/03/17 21:00 11/02/17 20:59 10/03/17 21:11 Raymond Rosen MD Oct 04, 2017 14:12
[2017-10-04 15:41] VITALS: BP 158/70
[2017-10-04] MEDS: D5 1/2NS w/KCl 20mEq 1,000 ML IV SCH (15:59)
[2017-10-04] MEDS ORDERED: Bisacodyl EC 5mg tab ORAL ONE (16:00)
[2017-10-04] MEDS ORDERED: Nulytely 4L ORAL ONE (16:00)
--- NOTE | 2017-10-04 19:45 | Consultation ---
DATE OF CONSULTATION: 10/04/2017 ENDOCRINOLOGY CONSULTATION CONSULTING PHYSICIAN: Ludin Nance M.D. REFERRING PHYSICIAN: Dorian Henriquez D.O. REASON FOR CONSULTATION: Diabetes management. HISTORY OF PRESENT ILLNESS: The patient is a 67-year-old female with a history of diabetes, presented to the hospital with nausea and vomiting, was diagnosed with partial small bowel obstruction. Diabetes was managed as an outpatient management with a combination of metformin and glipizide and she does not know her blood glucose values because she does not check. Currently, glucose is running over 300. She is tolerating her diet. PAST MEDICAL HISTORY: Hypertension and diabetes. SOCIAL HISTORY: Lives at [facility]. No smoking, alcohol, or drug use. FAMILY HISTORY: Noncontributory. REVIEW OF SYSTEMS: A 12-point review of systems was performed and pertinent positives and negatives are as mentioned in the history of present illness. PHYSICAL EXAMINATION: VITAL SIGNS: Her blood pressure was 130/72, heart rate 58, temperature of 97.5, and respiratory rate of 20. HEENT: Pupils are equal and reactive to light and accommodation. Sclerae are anicteric. NECK: Supple. No thyromegaly. LUNGS: Clear. HEART: Regular rate and rhythm. ABDOMEN: Positive bowel sounds. Soft. EXTREMITIES: No clubbing, cyanosis, or edema. LABORATORY VALUES: Sodium 139, potassium 4.2, chloride 95, bicarbonate 28, BUN 23, creatinine 0.9, glucose of 265, and calcium of 7.9. CRP of 3.5. WBC 9.6, hemoglobin 11.1, hematocrit 32.8, and platelets of 227. DIAGNOSES: 1. Partial small bowel obstruction, resolving. 2. Diabetes out of control. PLAN: 1. Resume glipizide 5 mg b.i.d. 2. Resume metformin 500 mg t.i.d. 3. Sliding scale insulin with NovoLog insulin. 4. Further adjustment according to the blood glucose values. Thank you, Dr. Henriquez, for the courtesy of this consultation. Ludin Nance M.D. DR: ANA/KACI JOB#: [id number] CC:
[2017-10-04 20:00] VITALS: BP 150/76
--- NOTE | 2017-10-04 20:45 | Progress Note ---
DATE: 10/04/2017 SUBJECTIVE: The patient is a 67-year-old female patient with generalized weakness. She has altered mental status and confusion . MENTAL STATUS EXAMINATION: This is a 67-year-old female. Appearance is disheveled, agitated, irritable,. Affect guarded and restricted. Intellect poor. Mood depressed and anxious. Motor activity, psychomotor agitation. Attention span is poor. Orientation x2. Speech is pressured. Thought process is disorganized and illogical. Thought content, paranoid delusions. Insight and judgment is fair. DIAGNOSIS: Major depression with psychotic features. PLAN: Continue treatment with medications to stabilize her mood. Provided 18-20 minutes of supportive therapy. Chart reviewed and discussed with staff. Douglas Willson M.D. DR: Mel JOB#: [id number] CC:
[2017-10-04] MEDS: TraZODone 50mg tab ORAL SCH (20:58)
--- NOTE | 2017-10-04 22:18 | Infectious Diseases Prog Note ---
Assessment/Plan Assessment/Plan ASSESSMENT: The patient is a 67-year-old female with leukocytosis. Rule out urinary tract infection. U cx : E. Coli Pyuria. CT scan showing perinephric stranding. Rule out bacteremia CT of abdomen and pelvis, diffuse mildly distended small bowel, minimal nonspecific bilateral perinephric fat stranding. GERD. Hypertension. Diabetes. PLAN: change cefepime d# 3 to Rocephin d# 1 Monitor CBC. Monitor BMP. Monitor cultures (blood and urine). Monitor CBC and BMP. Monitor chest x-ray Subjective Allergies: Coded Allergies: No Known Allergies (Unverified , 10/01/17) Subjective afebrile Objective Vital Signs Last 24 Hour Vital Signs Date Time Temp Pulse Resp B/P (MAP) Pulse Ox O2 Delivery O2 Flow Rate FiO2 10/04/17 20:14 75 16 Room Air 21 10/04/17 20:00 97.9 98 17 150/76 96 97.9 10/04/17 16:00 Room Air 10/04/17 15:41 98.2 59 18 158/70 99 98.2 10/04/17 12:00 Room Air 10/04/17 11:46 98.2 59 18 148/78 97 98.2 10/04/17 08:00 Room Air 10/04/17 07:55 97.9 70 18 150/70 99 97.9 10/04/17 07:50 70 20 Room Air 21 10/04/17 04:00 97.5 58 20 130/73 97 97.5 10/04/17 00:00 97.7 63 20 146/76 97 97.7 Height (Feet): 6 Height (Inches): 6.00 Weight (Pounds): 155 HEENT: anicteric Respiratory/Chest: no respiratory distress Cardiovascular: regular rhythm Abdomen: no organomegaly Laboratory Tests Test 10/04/17 05:05 10/04/17 19:24 White Blood Count 7.2 K/UL (4.8-10.8) Red Blood Count 3.95 M/UL (4.20-5.40) L Hemoglobin 11.6 G/DL (12.0-16.0) L Hematocrit 33.8 % (37.0-47.0) L Mean Corpuscular Volume 86 FL (80-99) Mean Corpuscular Hemoglobin 29.4 PG (27.0-31.0) Mean Corpuscular Hemoglobin Concent 34.3 G/DL (32.0-36.0) Red Cell Distribution Width 12.2 % (11.6-14.8) Platelet Count 246 K/UL (150-450) Mean Platelet Volume 7.4 FL (6.5-10.1) Neutrophils (%) (Auto) 65.0 % (45.0-75.0) Lymphocytes (%) (Auto) 26.2 % (20.0-45.0) Monocytes (%) (Auto) 5.9 % (1.0-10.0) Eosinophils (%) (Auto) 2.0 % (0.0-3.0) Basophils (%) (Auto) 0.8 % (0.0-2.0) Sodium Level 138 MMOL/L (136-145) Potassium Level 4.1 MMOL/L (3.5-5.1) Chloride Level 106 MMOL/L (98-107) Carbon Dioxide Level 24 MMOL/L (21-32) Anion Gap 8 mmol/L (5-15) Blood Urea Nitrogen 15 mg/dL (7-18) Creatinine 0.7 MG/DL (0.55-1.30) Estimat Glomerular Filtration Rate > 60 mL/min (>60) Glucose Level 242 MG/DL (74-106) H Calcium Level 8.1 MG/DL (8.5-10.1) L Iron Level 81 ug/dL (50-175) Total Iron Binding Capacity 241 ug/dL (250-450) L Percent Iron Saturation 34 % (15-50) Unsaturated Iron Binding 160 ug/dL (112-346) Total Bilirubin 0.3 MG/DL (0.2-1.0) Aspartate Amino Transf (AST/SGOT) 37 U/L (15-37) Alanine Aminotransferase (ALT/SGPT) 51 U/L (12-78) Alkaline Phosphatase 134 U/L (46-116) H Total Protein 6.5 G/DL (6.4-8.2) Albumin 2.7 G/DL (3.4-5.0) L Globulin 3.8 g/dL Albumin/Globulin Ratio 0.7 (1.0-2.7) L Vitamin B12 Level 477 PG/ML (193-986) Folate 14.0 NG/ML (8.6-58.9) Free Thyroxine 1.10 NG/DL (0.76-1.46) Stool Occult Blood Pending Current Medications Medications (Trade) Dose Ordered Sig/Grace Route PRN Reason Start Time Stop Time Status Last Admin Dose Admin Acetaminophen (Tylenol) 650 mg Q4H PRN ORAL fever 10/02/17 18:30 10/31/17 22:29 Albuterol/ Ipratropium (Albuterol/ Ipratropium) 3 ml EVERY 4 HOURS PRN HHN Shortness of Breath 10/02/17 17:00 10/06/17 22:29 Ceftriaxone Sodium 1 gm/ Dextrose 55 ml @ 110 mls/hr Q24H IVPB 10/04/17 12:00 10/11/17 11:59 10/04/17 11:46 Dextrose (Dextrose 50%) 25 ml STAT PRN IV Hypoglycemia 10/03/17 12:45 10/31/17 22:29 Dextrose (Dextrose 50%) 50 ml STAT PRN IV Hypoglycemia 10/03/17 12:45 11/01/17 12:44 Dextrose/ Electrolytes 1,000 ml @ 75 mls/hr [id number] IV 10/04/17 16:00 11/03/17 15:59 10/04/17 15:59 Docusate Sodium (Colace) 100 mg TWICE A DAY ORAL 10/03/17 18:00 11/02/17 17:59 10/04/17 17:41 Glipizide (Glucotrol) 5 mg BID ORAL 10/04/17 09:00 11/03/17 08:59 10/04/17 17:41 Heparin Sodium (Porcine) (Heparin 5000 units/ml) 5,000 units EVERY 12 HOURS SUBQ 10/02/17 21:00 11/01/17 08:59 10/04/17 09:00 Insulin Aspart (NovoLOG) BEFORE MEALS AND HS SUBQ 10/02/17 21:00 11/01/17 06:29 10/04/17 21:00 Lorazepam (Ativan) 1 mg Q6H PRN ORAL For Anxiety 10/03/17 04:15 10/10/17 04:14 Metformin HCl (Glucophage) 500 mg TIAC ORAL 10/04/17 07:00 11/03/17 06:59 10/04/17 16:24 Morphine Sulfate (Morphine Sulfate) 2 mg EVERY 4 HOURS PRN IVP Moderate Pain (Pain Scale 4-6) 10/02/17 17:00 10/08/17 22:29 Nitroglycerin (Ntg) 0.4 mg Q5M PRN SL Prn Chest Pain 10/02/17 17:00 10/31/17 22:29 Ondansetron HCl (Zofran) 4 mg Q6H PRN IVP Nausea & Vomiting 10/02/17 22:30 10/31/17 22:29 Pantoprazole (Protonix) 40 mg DAILY ORAL 10/03/17 09:00 11/02/17 08:59 10/04/17 08:59 Polyethylene Glycol (Miralax) 17 gm DAILYPRN PRN ORAL Constipation 10/03/17 10:45 11/01/17 10:44 10/03/17 21:37 Risperidone (RisperDAL) 0.5 mg QPM ORAL 10/03/17 16:30 11/02/17 16:29 10/04/17 16:24 Temazepam (Restoril) 15 mg HSPRN PRN ORAL Insomnia 10/02/17 22:30 10/08/17 22:29 Trazodone HCl (Desyrel) 50 mg BEDTIME ORAL 10/03/17 21:00 11/02/17 20:59 10/04/17 20:58 Franky Brandt MD Oct 04, 2017 22:18
[2017-10-04] MEDS ORDERED: Tubing IV Secondary IV ONE (22:47)
[2017-10-04] MEDS ORDERED: NS 275ml ONE (22:47)
[2017-10-05] VITALS (12 sets, daily range): BP systolic 123–179; BP diastolic 56–80
[2017-10-05] MEDS: metFORMIN 500mg tab ORAL SCH ×3 (05:29→16:54)
[2017-10-05] MEDS: D5 1/2NS w/KCl 20mEq 1,000 ML IV SCH ×2 (05:29→18:40)
[2017-10-05] MEDS: NovoLOG Insulin Flexpen SUBQ SCH ×5 (05:31→21:06)
--- NOTE | 2017-10-05 06:37 | General Progress Note ---
Assessment/Plan Problem List: (1) Partial small bowel obstruction ICD Codes: K56.600 - Partial intestinal obstruction, unspecified as to cause SNOMED: 011532030 (2) Diabetes mellitus ICD Codes: E11.9 - Type 2 diabetes mellitus without complications SNOMED: 20652449 (3) Anemia ICD Codes: D64.9 - Anemia, unspecified SNOMED: 468495059 Assessment/Plan continue Glipizide 5 mg bid continue Metformin 500 mg tid continue NISS Subjective Allergies: Coded Allergies: No Known Allergies (Unverified , 10/01/17) All Systems: reviewed and negative except above Subjective events noted - interval notes reviewed Objective Last 24 Hour Vital Signs Date Time Temp Pulse Resp B/P (MAP) Pulse Ox O2 Delivery O2 Flow Rate FiO2 10/05/17 04:00 96.6 52 16 148/67 97 96.6 10/05/17 00:00 97.7 52 15 123/56 96 97.7 10/04/17 20:14 75 16 Room Air 21 10/04/17 20:00 97.9 98 17 150/76 96 97.9 10/04/17 16:00 Room Air 10/04/17 15:41 98.2 59 18 158/70 99 98.2 10/04/17 12:00 Room Air 10/04/17 11:46 98.2 59 18 148/78 97 98.2 10/04/17 08:00 Room Air 10/04/17 07:55 97.9 70 18 150/70 99 97.9 10/04/17 07:50 70 20 Room Air 21 Intake and Output 10/04/17 10/05/17 19:00 07:00 Intake Total 2355 ml 600 ml Balance 2355 ml 600 ml Intake Oral 1800 ml IV Total 555 ml 600 ml # Voids 5 # Bowel Movements 5 Laboratory Tests 10/04/17 19:24: Stool Occult Blood [Pending] Height (Feet): 6 Height (Inches): 6.00 Weight (Pounds): 155 General Appearance: no apparent distress Neck: normal alignment Cardiovascular: normal rate Respiratory/Chest: lungs clear Abdomen: normal bowel sounds Objective Current Medications Medications (Trade) Dose Ordered Sig/Grace Route PRN Reason Start Time Stop Time Status Last Admin Dose Admin Acetaminophen (Tylenol) 650 mg Q4H PRN ORAL fever 10/02/17 18:30 10/31/17 22:29 Albuterol/ Ipratropium (Albuterol/ Ipratropium) 3 ml EVERY 4 HOURS PRN HHN Shortness of Breath 10/02/17 17:00 10/06/17 22:29 Ceftriaxone Sodium 1 gm/ Dextrose 55 ml @ 110 mls/hr Q24H IVPB 10/04/17 12:00 10/11/17 11:59 10/04/17 11:46 Dextrose (Dextrose 50%) 25 ml STAT PRN IV Hypoglycemia 10/03/17 12:45 10/31/17 22:29 Dextrose (Dextrose 50%) 50 ml STAT PRN IV Hypoglycemia 10/03/17 12:45 11/01/17 12:44 Dextrose/ Electrolytes 1,000 ml @ 75 mls/hr [id number] IV 10/04/17 16:00 11/03/17 15:59 10/05/17 05:29 Docusate Sodium (Colace) 100 mg TWICE A DAY ORAL 10/03/17 18:00 11/02/17 17:59 10/04/17 17:41 Glipizide (Glucotrol) 5 mg BID ORAL 10/04/17 09:00 11/03/17 08:59 10/04/17 17:41 Heparin Sodium (Porcine) (Heparin 5000 units/ml) 5,000 units EVERY 12 HOURS SUBQ 10/02/17 21:00 11/01/17 08:59 10/04/17 09:00 Insulin Aspart (NovoLOG) BEFORE MEALS AND HS SUBQ 10/02/17 21:00 11/01/17 06:29 10/05/17 05:31 Lorazepam (Ativan) 1 mg Q6H PRN ORAL For Anxiety 10/03/17 04:15 10/10/17 04:14 Metformin HCl (Glucophage) 500 mg TIAC ORAL 10/04/17 07:00 11/03/17 06:59 10/05/17 05:29 Morphine Sulfate (Morphine Sulfate) 2 mg EVERY 4 HOURS PRN IVP Moderate Pain (Pain Scale 4-6) 10/02/17 17:00 10/08/17 22:29 Nitroglycerin (Ntg) 0.4 mg Q5M PRN SL Prn Chest Pain 10/02/17 17:00 10/31/17 22:29 Ondansetron HCl (Zofran) 4 mg Q6H PRN IVP Nausea & Vomiting 10/02/17 22:30 10/31/17 22:29 Pantoprazole (Protonix) 40 mg DAILY ORAL 10/03/17 09:00 11/02/17 08:59 10/04/17 08:59 Polyethylene Glycol (Miralax) 17 gm DAILYPRN PRN ORAL Constipation 10/03/17 10:45 11/01/17 10:44 10/03/17 21:37 Risperidone (RisperDAL) 0.5 mg QPM ORAL 10/03/17 16:30 11/02/17 16:29 10/04/17 16:24 Temazepam (Restoril) 15 mg HSPRN PRN ORAL Insomnia 10/02/17 22:30 10/08/17 22:29 Trazodone HCl (Desyrel) 50 mg BEDTIME ORAL 10/03/17 21:00 11/02/17 20:59 10/04/17 20:58 Item Value Date Time Bedside Blood Glucose 191 mg/dl H 10/05/17 0531 Bedside Blood Glucose 191 mg/dl H 10/04/17 2146 Bedside Blood Glucose 149 mg/dl H 10/04/17 1631 Bedside Blood Glucose 172 mg/dl H 10/04/17 1140 Bedside Blood Glucose 252 mg/dl H 10/04/17 0630 THELMA BAÑUELOS Oct 05, 2017 06:37
[2017-10-05 07:38] LABS: ALANINE AMINOTRANSFERASE 37 U/L (12-78); ALBUMIN 2.7 G/DL (3.4-5.0); ALBUMIN/GLOBULIN RATIO 0.8 (1.0-2.7); ALKALINE PHOSPHATASE 125 U/L (46-116); ANION GAP 8 mmol/L (5-15); ASPARTATE AMINO TRANSFERASE 21 U/L (15-37); BILIRUBIN,TOTAL 0.4 MG/DL (0.2-1.0); BLOOD UREA NITROGEN 9 mg/dL (7-18); CALCIUM 8.1 MG/DL (8.5-10.1); CARBON DIOXIDE 25 MMOL/L (21-32); CHLORIDE 108 MMOL/L (98-107); CREATININE 0.6 MG/DL (0.55-1.30); POTASSIUM 4.3 MMOL/L (3.5-5.1); SODIUM 141 MMOL/L (136-145)
[2017-10-05 07:48] LABS: BASOPHILS % (AUTO) 0.9 % (0.0-2.0); EOSINOPHILS % (AUTO) 2.6 % (0.0-3.0); HEMATOCRIT 34.3 % (37.0-47.0); HEMOGLOBIN 11.8 G/DL (12.0-16.0); LYMPHOCYTES % (AUTO) 31.5 % (20.0-45.0); MEAN CORPUSCULAR VOLUME 86 FL (80-99); MONOCYTES % (AUTO) 7.2 % (1.0-10.0); NEUTROPHILS % (AUTO) 57.8 % (45.0-75.0); PLATELET COUNT 220 K/UL (150-450); RED BLOOD COUNT 3.98 M/UL (4.20-5.40); RED CELL DISTRIBUTION WIDTH 12.2 % (11.6-14.8); WHITE BLOOD COUNT 6.1 K/UL (4.8-10.8)
[2017-10-05] MEDS ORDERED: Midazolam 2mg/2ml Inj ONE (08:00)
[2017-10-05] MEDS ORDERED: fentaNYL 100 mcg/2 mL IV ONE (08:00)
[2017-10-05] MEDS: GlipiZIDE 5mg tab ORAL SCH ×2 (08:51→17:22)
[2017-10-05] MEDS: Docusate 100mg cap ORAL SCH ×2 (08:51→17:22)
[2017-10-05] MEDS: Heparin 5000 units/ml inj SUBQ SCH ×2 (08:51→21:05)
--- NOTE | 2017-10-05 10:45 | Consultation ---
DATE OF CONSULTATION: 10/05/2017 CONSULTING PHYSICIAN: Douglas Willson M.D. ATTENDING PHYSICIAN: Dorian Henriquez D.O. HISTORY OF PRESENT ILLNESS: The patient is a 67-year-old female patient. She has got generalized weakness. This patient is confused and disorganized. Female patient. She still has some psychosis and mood lability. Her cognition has declined below baseline. That is why, her attending physician has requested daily psychiatric consultation. Assessed at bedside. She has confusion, disorganized thought process, mood lability. Cognition has declined below baseline secondary to stress of her medical illness. MENTAL STATUS EXAMINATION: This is a 67-year-old female. Appearance is disheveled. Attitude, irritable and agitated. Affect guarded and restricted. Intellect poor. Mood depressed and anxious. Motor activity, psychomotor agitation. Attention span is poor. Orientation x2. Speech is pressured. Thought process disorganized. Thought content, some paranoid delusions. Insight and judgment is poor. DIAGNOSIS: Major depression with psychotic features, rule out pseudodementia. PLAN: Plan for this patient is to treat her with a medication regimen of Risperdal 0.5 mg q.p.m., trazodone 50 mg nightly, and provide 18-20 minutes of supportive therapy. Again, 18-20 minutes of supportive therapy will continue to be provided. Also, continue Ativan 1 mg q.6 h. p.r.n. anxiety and agitation. Again, 18-20 minutes of supportive therapy is provided. The patient will continue to be followed by Psychiatry throughout hospital course. Chart reviewed. Discussed with staff. Seen and assessed at bedside. Douglas Willson M.D. DR: Ritesh JOB#: [id number] CC:
--- NOTE | 2017-10-05 11:38 | Anethesia Preoperative Eval ---
Anesthesia Pre-op PMH/ROS General Date of Evaluation: Oct 05, 2017 Time of Evaluation: 11:35 Anesthesiologist: Mechelle ASA Score: ASA 3 Mallampati Score Class I : Soft palate, uvula, fauces, pillars visible Class II: Soft palate, uvula, fauces visible Class III: Soft palate, base of uvula visible Class IV: Only hard plate visible Mallampati Classification: Class II Surgeon: Jordan Diagnosis: Abdominal pain Surgical Procedure: EGD colonoscopy Anesthesia History: none Family History: no anesthesia problems Allergies: Coded Allergies: No Known Allergies (Unverified , 10/01/17) Medications: see eMAR Past Medical History Cardiovascular: Denies: HTN, CAD, [place], valve dz, arrhythmia, other Pulmonary: Denies: asthma, COPD, TYSON, other Gastrointestinal/Genitourinary: Reports: GERD; Denies: CRI, ESRD, other Neurologic/Psychiatric: Reports: depression/anxiety; Denies: dementia, CVA, TIA, other Endocrine: Reports: DM; Denies: hypothyroidism, steroids, other HEENT: Denies: cataract (L), cataract (R), glaucoma, MCGRATH (L), MCGRATH (R), other Hematology/Immune: Reports: anemia; Denies: DVT, bleeding disorder, other Musculoskeletal/Integumentary: Denies: OA, RA, DJD, DDD, edema, other PMH Narrative: as above PSxH Narrative: See H&P Anesthesia Pre-op Phys. Exam Physician Exam Last Vital Signs Date Time Temp Pulse Resp B/P (MAP) Pulse Ox O2 Delivery O2 Flow Rate FiO2 10/05/17 08:15 58 16 Room Air 21 10/05/17 08:15 98.1 150/70 98.1 10/05/17 04:00 97 Constitutional: NAD Neurologic: CN 2-12 intact Cardiovascular: RRR, no M/R/G Respiratory: CTA Gastrointestinal: S/NT/ND Airway Exam Mallampati Score: Class II MO: limited Teeth: missing Dentures: no upper, no lower Anesthesia Pre-op A/P Labs Hematology Test 10/05/17 05:00 White Blood Count 6.1 K/UL (4.8-10.8) Red Blood Count 3.98 M/UL (4.20-5.40) L Hemoglobin 11.8 G/DL (12.0-16.0) L Hematocrit 34.3 % (37.0-47.0) L Mean Corpuscular Volume 86 FL (80-99) Mean Corpuscular Hemoglobin 29.6 PG (27.0-31.0) Mean Corpuscular Hemoglobin Concent 34.3 G/DL (32.0-36.0) Red Cell Distribution Width 12.2 % (11.6-14.8) Platelet Count 220 K/UL (150-450) Mean Platelet Volume 7.1 FL (6.5-10.1) Neutrophils (%) (Auto) 57.8 % (45.0-75.0) Lymphocytes (%) (Auto) 31.5 % (20.0-45.0) Monocytes (%) (Auto) 7.2 % (1.0-10.0) Eosinophils (%) (Auto) 2.6 % (0.0-3.0) Basophils (%) (Auto) 0.9 % (0.0-2.0) Chemistry Test 10/05/17 05:00 Sodium Level 141 MMOL/L (136-145) Potassium Level 4.3 MMOL/L (3.5-5.1) Chloride Level 108 MMOL/L (98-107) H Carbon Dioxide Level 25 MMOL/L (21-32) Anion Gap 8 mmol/L (5-15) Blood Urea Nitrogen 9 mg/dL (7-18) Creatinine 0.6 MG/DL (0.55-1.30) Estimat Glomerular Filtration Rate > 60 mL/min (>60) Glucose Level 217 MG/DL (74-106) H Calcium Level 8.1 MG/DL (8.5-10.1) L Phosphorus Level 3.0 MG/DL (2.5-4.9) Magnesium Level 1.3 MG/DL (1.8-2.4) L Total Bilirubin 0.4 MG/DL (0.2-1.0) Aspartate Amino Transf (AST/SGOT) 21 U/L (15-37) Alanine Aminotransferase (ALT/SGPT) 37 U/L (12-78) Alkaline Phosphatase 125 U/L (46-116) H Total Protein 6.0 G/DL (6.4-8.2) L Albumin 2.7 G/DL (3.4-5.0) L Globulin 3.3 g/dL Albumin/Globulin Ratio 0.8 (1.0-2.7) L Risk Assessment & Plan Assessment: ASA 3 Plan: DONALD SCHWAB M.D. Oct 05, 2017 11:38
--- NOTE | 2017-10-05 11:50 | Pre-Procedure Note/Attestation ---
Pre-Procedure Note/Attestation Complete Prior to Procedure Planned Procedure: not applicable Procedure Narrative: EGD AND COLONOSCOPY Indications for Procedure Pre-Operative Diagnosis: ANEMIA, WT LOSS Attestation I attest that I discussed the nature of the procedure; its benefits; risks and complications; and alternatives (and the risks and benefits of such alternatives ), prior to the procedure, with the patient (or the patient's legal inside sales representative). I attest that, if there was a reasonable possibility of needing a blood transfusion, the patient (or the patient's legal inside sales representative) was given the [facility] standardized written summary, pursuant to the [place] Blood Safety Act ([place] Health and Safety Code # 1645, as amended). I attest that I re-evaluated the patient just prior to the surgery and that there has been no change in the patient's H&P, except as documented below: ANNA RODRIGUEZ Oct 05, 2017 11:50
[2017-10-05] MEDS ORDERED: LR 1000ml 1,000 ML IVLG SCH (12:18)
[2017-10-05] MEDS ORDERED: fentaNYL 100 mcg/2 mL IV PRN (12:30)
--- NOTE | 2017-10-05 12:34 | Endoscopy Procedure Note ---
Endoscopy Procedure Note General Indication for Procedure: ANEMIA Procedures Performed: EGD, colonoscopy Operative Findings/Diagnosis: ESOPHAGITIS, COLON POLYP Specimen: yes Pt Tolerated Procedure Well: Yes Estimated Blood Loss: none Anesthesia Anesthesiologist: CIARA Anesthesia: MAC Inserted Devices Implant(s) used?: No Quality Quality of Bowel Preparation: Good Did scope reach the cecum?: Yes Was there any complications?: No GI Core Measures 50 yrs or older w/o bx or poly: Not Applicable 10yrs. F/U not recommended: Not Applicable ANNA RODRIGUEZ Oct 05, 2017 12:34
--- NOTE | 2017-10-05 12:39 | Immediate Post-Op Evaluation ---
Immediate Post-Op Evalulation Immediate Post-Op Evalulation Procedure: EGD Colonosopy Date of Evaluation: Oct 05, 2017 Time of Evaluation: 12:39 IV Fluids: 300 Blood Products: none Estimated Blood Loss: none Urinary Output: none Blood Pressure Systolic: 144 Blood Pressure Diastolic: 73 Pulse Rate: 66 Respiratory Rate: 20 O2 Sat by Pulse Oximetry: 98 Temperature (Fahrenheit): 97.6 Pain Score (1-10): 1 Nausea: No Vomiting: No Complications none Patient Status: awake, patent, none Hydration Status: adequate DONALD FUENTES M.D. Oct 05, 2017 12:39
[2017-10-05] MEDS: cefTRIAXone 1gm/D5W 55ml IVPB SCH ×2 (13:10)
--- NOTE | 2017-10-05 13:19 | General Progress Note ---
Assessment/Plan Problem List: (1) UTI (urinary tract infection) ICD Codes: N39.0 - Urinary tract infection, site not specified SNOMED: 19733568 (2) Diabetes mellitus ICD Codes: E11.9 - Type 2 diabetes mellitus without complications SNOMED: 39012685 (3) Ileus ICD Codes: K56.7 - Ileus, unspecified SNOMED: 889570154 (4) Partial small bowel obstruction ICD Codes: K56.600 - Partial intestinal obstruction, unspecified as to cause SNOMED: 752241023 (5) Abdominal pain ICD Codes: R10.9 - Unspecified abdominal pain SNOMED: 47506562 (6) Nausea & vomiting ICD Codes: R11.2 - Nausea with vomiting, unspecified SNOMED: 46089900 (7) Dehydration ICD Codes: E86.0 - Dehydration SNOMED: 87289237 Status: stable, progressing Assessment/Plan ot pt diet abx gi sx f/u dc if celar by gi Subjective Constitutional: Reports: weakness Allergies: Coded Allergies: No Known Allergies (Unverified , 10/01/17) All Systems: reviewed and negative except above Objective Last 24 Hour Vital Signs Date Time Temp Pulse Resp B/P (MAP) Pulse Ox O2 Delivery O2 Flow Rate FiO2 10/05/17 13:13 97.5 64 18 179/79 99 Room Air 97.5 10/05/17 12:58 97.8 62 17 167/76 98 Room Air 97.8 10/05/17 12:50 59 16 162/74 99 Room Air 10/05/17 12:45 61 18 165/80 98 Room Air 10/05/17 12:40 61 14 146/79 100 Nasal Cannula 3.0 10/05/17 12:39 207.7 66 20 98 10/05/17 12:34 98.0 65 16 144/73 100 Nasal Cannula 3.0 98.0 10/05/17 11:38 97.8 68 18 149/57 Room Air 97.8 10/05/17 08:15 58 16 Room Air 21 10/05/17 08:15 98.1 57 19 150/70 Room Air 98.1 10/05/17 04:00 96.6 52 16 148/67 97 96.6 10/05/17 00:00 97.7 52 15 123/56 96 97.7 10/04/17 20:14 75 16 Room Air 21 10/04/17 20:00 97.9 98 17 150/76 96 97.9 10/04/17 16:00 Room Air 10/04/17 15:41 98.2 59 18 158/70 99 98.2 Intake and Output 10/04/17 10/05/17 19:00 07:00 Intake Total 2355 ml 975 ml Balance 2355 ml 975 ml Intake Oral 1800 ml IV Total 555 ml 975 ml # Voids 5 # Bowel Movements 5 Laboratory Tests 10/04/17 19:24: Stool Occult Blood Negative 10/05/17 05:00: White Blood Count 6.1, Red Blood Count 3.98L, Hemoglobin 11.8L, Hematocrit 34.3L , Mean Corpuscular Volume 86, Mean Corpuscular Hemoglobin 29.6, Mean Corpuscular Hemoglobin Concent 34.3, Red Cell Distribution Width 12.2, Platelet Count 220, Mean Platelet Volume 7.1, Neutrophils (%) (Auto) 57.8, Lymphocytes (% ) (Auto) 31.5, Monocytes (%) (Auto) 7.2, Eosinophils (%) (Auto) 2.6, Basophils ( %) (Auto) 0.9, Sodium Level 141, Potassium Level 4.3, Chloride Level 108H, Carbon Dioxide Level 25, Anion Gap 8, Blood Urea Nitrogen 9, Creatinine 0.6, Estimat Glomerular Filtration Rate > 60, Glucose Level 217H, Calcium Level 8.1L , Phosphorus Level 3.0, Magnesium Level 1.3L, Total Bilirubin 0.4, Aspartate Amino Transf (AST/SGOT) 21, Alanine Aminotransferase (ALT/SGPT) 37, Alkaline Phosphatase 125H, Total Protein 6.0L, Albumin 2.7L, Globulin 3.3, Albumin/ Globulin Ratio 0.8L Height (Feet): 6 Height (Inches): 6.00 Weight (Pounds): 155 General Appearance: lethargic EENT: normal ENT inspection Neck: normal alignment Cardiovascular: normal peripheral pulses, normal rate, regular rhythm Respiratory/Chest: chest wall non-tender, lungs clear, normal breath sounds Abdomen: non tender, soft, hypoactive bowel sounds Extremities: normal inspection Edema: no edema noted Arm (L), no edema noted Arm (R), no edema noted Leg (L), no edema noted Leg (R), no edema noted Pedal (L), no edema noted Pedal (R), no edema noted Generalized Neurologic: motor weakness Skin: normal pigmentation, warm/dry LYDIA ASKEW Oct 05, 2017 13:18
--- NOTE | 2017-10-05 15:04 | Pulmonology Progress Note ---
Assessment/Plan Problems: (1) UTI (urinary tract infection) (2) Ileus (3) Nausea & vomiting (4) Weight loss (5) Anemia (6) Diabetes mellitus Assessment/Plan advance diet GI f/u, colonoscopy and EGD was done check electrolytes all meds and labs reviewed continue current regimne endoscopy on thursday Subjective ROS Limited/Unobtainable: No Constitutional: Reports: no symptoms HEENT: Repors: no symptoms Allergies: Coded Allergies: No Known Allergies (Unverified , 10/01/17) Objective Last 24 Hour Vital Signs Date Time Temp Pulse Resp B/P (MAP) Pulse Ox O2 Delivery O2 Flow Rate FiO2 10/05/17 14:15 64 179/79 10/05/17 14:14 179/79 10/05/17 13:13 97.5 64 18 179/79 99 Room Air 97.5 10/05/17 12:58 97.8 62 17 167/76 98 Room Air 97.8 10/05/17 12:50 59 16 162/74 99 Room Air 10/05/17 12:45 61 18 165/80 98 Room Air 10/05/17 12:40 61 14 146/79 100 Nasal Cannula 3.0 10/05/17 12:39 207.7 66 20 98 10/05/17 12:34 98.0 65 16 144/73 100 Nasal Cannula 3.0 98.0 10/05/17 11:38 97.8 68 18 149/57 Room Air 97.8 10/05/17 08:15 58 16 Room Air 21 10/05/17 08:15 98.1 57 19 150/70 Room Air 98.1 10/05/17 04:00 96.6 52 16 148/67 97 96.6 10/05/17 00:00 97.7 52 15 123/56 96 97.7 10/04/17 20:14 75 16 Room Air 21 10/04/17 20:00 97.9 98 17 150/76 96 97.9 10/04/17 16:00 Room Air 10/04/17 15:41 98.2 59 18 158/70 99 98.2 Intake and Output 10/04/17 10/05/17 19:00 07:00 Intake Total 2355 ml 975 ml Balance 2355 ml 975 ml Intake Oral 1800 ml IV Total 555 ml 975 ml # Voids 5 # Bowel Movements 5 Objective General Appearance: cachetic HEENT: normocephalic, atraumatic Respiratory/Chest: chest wall non-tender, lungs clear Cardiovascular: normal rate, regular rhythm Abdomen: normal bowel sounds, soft, non tender, non distended Genitourinary: normal external genitalia Extremities: no cyanosis Skin: no rash 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, no motor/sensory deficits, alert Laboratory Tests 10/04/17 19:24: Stool Occult Blood Negative 10/05/17 05:00: White Blood Count 6.1, Red Blood Count 3.98L, Hemoglobin 11.8L, Hematocrit 34.3L , Mean Corpuscular Volume 86, Mean Corpuscular Hemoglobin 29.6, Mean Corpuscular Hemoglobin Concent 34.3, Red Cell Distribution Width 12.2, Platelet Count 220, Mean Platelet Volume 7.1, Neutrophils (%) (Auto) 57.8, Lymphocytes (% ) (Auto) 31.5, Monocytes (%) (Auto) 7.2, Eosinophils (%) (Auto) 2.6, Basophils ( %) (Auto) 0.9, Sodium Level 141, Potassium Level 4.3, Chloride Level 108H, Carbon Dioxide Level 25, Anion Gap 8, Blood Urea Nitrogen 9, Creatinine 0.6, Estimat Glomerular Filtration Rate > 60, Glucose Level 217H, Calcium Level 8.1L , Phosphorus Level 3.0, Magnesium Level 1.3L, Total Bilirubin 0.4, Aspartate Amino Transf (AST/SGOT) 21, Alanine Aminotransferase (ALT/SGPT) 37, Alkaline Phosphatase 125H, Total Protein 6.0L, Albumin 2.7L, Globulin 3.3, Albumin/ Globulin Ratio 0.8L Current Medications Medications (Trade) Dose Ordered Sig/Grace Route PRN Reason Start Time Stop Time Status Last Admin Dose Admin Acetaminophen (Tylenol) 650 mg Q4H PRN ORAL fever 10/02/17 18:30 10/31/17 22:29 Albuterol/ Ipratropium (Albuterol/ Ipratropium) 3 ml EVERY 4 HOURS PRN HHN Shortness of Breath 10/02/17 17:00 10/06/17 22:29 Amlodipine Besylate (Norvasc) 5 mg DAILY ORAL 10/05/17 14:15 11/04/17 14:14 10/05/17 14:15 Ceftriaxone Sodium 1 gm/ Dextrose 110 ml @ 220 mls/hr Q24H IVPB 10/06/17 12:00 10/11/17 23:59 Clonidine HCl (Catapres Tab) 0.1 mg EVERY 8 HOURS PRN ORAL SBP >160 10/05/17 14:15 11/04/17 14:14 10/05/17 14:14 Dextrose (Dextrose 50%) 25 ml STAT PRN IV Hypoglycemia 10/03/17 12:45 10/31/17 22:29 Dextrose (Dextrose 50%) 50 ml STAT PRN IV Hypoglycemia 10/03/17 12:45 11/01/17 12:44 Dextrose/ Electrolytes 1,000 ml @ 75 mls/hr [id number] IV 10/04/17 16:00 11/03/17 15:59 10/05/17 05:29 Docusate Sodium (Colace) 100 mg TWICE A DAY ORAL 10/03/17 18:00 11/02/17 17:59 10/04/17 17:41 Fentanyl Citrate (Sublimaze 100 mcg/2 mL) 25 mcg Q10M PRN IV Moderate Pain (Pain Scale 4-6) 10/05/17 12:30 10/05/17 18:30 Glipizide (Glucotrol) 5 mg BID ORAL 10/04/17 09:00 11/03/17 08:59 10/04/17 17:41 Heparin Sodium (Porcine) (Heparin 5000 units/ml) 5,000 units EVERY 12 HOURS SUBQ 10/02/17 21:00 11/01/17 08:59 10/04/17 09:00 Insulin Aspart (NovoLOG) BEFORE MEALS AND HS SUBQ 10/02/17 21:00 11/01/17 06:29 10/05/17 13:23 Lorazepam (Ativan) 1 mg Q6H PRN ORAL For Anxiety 10/03/17 04:15 10/10/17 04:14 Metformin HCl (Glucophage) 500 mg TIAC ORAL 10/04/17 07:00 11/03/17 06:59 10/05/17 05:29 Morphine Sulfate (Morphine Sulfate) 2 mg EVERY 4 HOURS PRN IVP Moderate Pain (Pain Scale 4-6) 10/02/17 17:00 10/08/17 22:29 Nitroglycerin (Ntg) 0.4 mg Q5M PRN SL Prn Chest Pain 10/02/17 17:00 10/31/17 22:29 Ondansetron HCl (Zofran) 4 mg Q1H PRN IVP Nausea & Vomiting 10/05/17 12:30 10/05/17 18:30 Ondansetron HCl (Zofran) 4 mg Q6H PRN IVP Nausea & Vomiting 10/02/17 22:30 10/31/17 22:29 Pantoprazole (Protonix) 40 mg DAILY ORAL 10/03/17 09:00 11/02/17 08:59 10/04/17 08:59 Polyethylene Glycol (Miralax) 17 gm DAILYPRN PRN ORAL Constipation 10/03/17 10:45 11/01/17 10:44 10/03/17 21:37 Risperidone (RisperDAL) 0.5 mg QPM ORAL 10/03/17 16:30 11/02/17 16:29 10/04/17 16:24 Temazepam (Restoril) 15 mg HSPRN PRN ORAL Insomnia 10/02/17 22:30 10/08/17 22:29 Trazodone HCl (Desyrel) 50 mg BEDTIME ORAL 10/03/17 21:00 11/02/17 20:59 10/04/17 20:58 Raymond Rosen MD Oct 05, 2017 15:04
--- NOTE | 2017-10-05 16:45 | Procedure Note ---
DATE OF PROCEDURE: 10/05/2017 SURGEON: Wero Ortega M.D. REFERRING PHYSICIAN: Dorian Henriquez D.O. PROCEDURE: Upper endoscopy with biopsy and colonoscopy with biopsy. INSTRUMENT: Olympus adult flexible upper endoscope and colonoscope. INDICATION: Anemia, abdominal pain, weight loss. The procedure, risks, benefits, and possible consequences, including hemorrhage, aspiration, perforation and infection, and alternative treatments, were explained to the patient/legal guardian by Dr. Wero Ortega and the patient/legal guardian understood and accepted these risks. DESCRIPTION OF PROCEDURE: After informed consent was obtained and the patient was adequately sedated, Olympus upper endoscope was advanced from mouth to the second portion of duodenum and retroflexion was performed in the stomach. The patient had evidence of peeling off of the mucosa in the mid esophagus, status biopsy to rule out . In the stomach, there was diffuse gastritis. Random biopsy from antrum was obtained to rule out H. pylori infection. The patient had multiple polyps in the gastric area, most probably fundic gland polyps which were not biopsied. The passage of the scope through the pyloric channel into the duodenum was a little bit challenging. In that area, there was evidence of inflammation but no obvious ulceration. At this time, the upper endoscope was retrieved. The patient was turned over for colonoscopy. First, rectal exam was performed which showed positive for internal hemorrhoids. Then, the scope was advanced from the rectum into the cecum documented by the appendiceal orifice, ileocecal valve, and upper quadrant palpation. Quality of prep overall was good. The patient had one diminutive polyp in the rectum which was biopsied, otherwise the rest of the colonoscopy examination grossly within normal limits. Retroflexion of rectum showed evidence of medium-sized internal hemorrhoids. SUMMARY OF FINDINGS: 1. Peeling of the mucosa in the mid esophagus, status post biopsy. 2. Gastritis, status post biopsy. 3. Multiple gastric polyps. 4. Internal hemorrhoids._ 5. One rectal polyp, removed. See above for details. RECOMMENDATIONS: Follow biopsy results and treat accordingly. I want to thank Dr. Dorian Henriquez for this kind referral. Wero Ortega M.D. DR: Romain JOB#: [id number] CC: Dorian Henriquez D.O.
--- NOTE | 2017-10-05 19:49 | Infectious Diseases Prog Note ---
Assessment/Plan Assessment/Plan ASSESSMENT: The patient is a 67-year-old female with leukocytosis. Rule out urinary tract infection. U cx : E. Coli / Mixed GNR Pyuria. CT scan showing perinephric stranding. Rule out bacteremia CT of abdomen and pelvis, diffuse mildly distended small bowel, minimal nonspecific bilateral perinephric fat stranding. GERD. Hypertension. Diabetes. PLAN: Rocephin d# 2 / , upon DC will change to Keflex to complete the course SP cefepime d# 3 Monitor CBC. Monitor BMP. Monitor cultures (blood ) Monitor CBC and BMP. Monitor chest x-ray Subjective Allergies: Coded Allergies: No Known Allergies (Unverified , 10/01/17) Subjective afebrile Objective Vital Signs Last 24 Hour Vital Signs Date Time Temp Pulse Resp B/P (MAP) Pulse Ox O2 Delivery O2 Flow Rate FiO2 10/05/17 15:56 97.7 67 18 168/66 98 Room Air 97.7 10/05/17 14:15 64 179/79 10/05/17 14:14 179/79 10/05/17 13:13 97.5 64 18 179/79 99 Room Air 97.5 10/05/17 12:58 97.8 62 17 167/76 98 Room Air 97.8 10/05/17 12:50 59 16 162/74 99 Room Air 10/05/17 12:45 61 18 165/80 98 Room Air 10/05/17 12:40 61 14 146/79 100 Nasal Cannula 3.0 10/05/17 12:39 207.7 66 20 98 10/05/17 12:34 98.0 65 16 144/73 100 Nasal Cannula 3.0 98.0 10/05/17 11:38 97.8 68 18 149/57 Room Air 97.8 10/05/17 08:15 58 16 Room Air 21 10/05/17 08:15 98.1 57 19 150/70 Room Air 98.1 10/05/17 04:00 96.6 52 16 148/67 97 96.6 10/05/17 00:00 97.7 52 15 123/56 96 97.7 10/04/17 20:14 75 16 Room Air 21 10/04/17 20:00 97.9 98 17 150/76 96 97.9 Height (Feet): 6 Height (Inches): 6.00 Weight (Pounds): 155 HEENT: anicteric Respiratory/Chest: no respiratory distress Cardiovascular: regular rhythm Abdomen: soft, non tender Laboratory Tests Test 10/05/17 05:00 White Blood Count 6.1 K/UL (4.8-10.8) Red Blood Count 3.98 M/UL (4.20-5.40) L Hemoglobin 11.8 G/DL (12.0-16.0) L Hematocrit 34.3 % (37.0-47.0) L Mean Corpuscular Volume 86 FL (80-99) Mean Corpuscular Hemoglobin 29.6 PG (27.0-31.0) Mean Corpuscular Hemoglobin Concent 34.3 G/DL (32.0-36.0) Red Cell Distribution Width 12.2 % (11.6-14.8) Platelet Count 220 K/UL (150-450) Mean Platelet Volume 7.1 FL (6.5-10.1) Neutrophils (%) (Auto) 57.8 % (45.0-75.0) Lymphocytes (%) (Auto) 31.5 % (20.0-45.0) Monocytes (%) (Auto) 7.2 % (1.0-10.0) Eosinophils (%) (Auto) 2.6 % (0.0-3.0) Basophils (%) (Auto) 0.9 % (0.0-2.0) Sodium Level 141 MMOL/L (136-145) Potassium Level 4.3 MMOL/L (3.5-5.1) Chloride Level 108 MMOL/L (98-107) H Carbon Dioxide Level 25 MMOL/L (21-32) Anion Gap 8 mmol/L (5-15) Blood Urea Nitrogen 9 mg/dL (7-18) Creatinine 0.6 MG/DL (0.55-1.30) Estimat Glomerular Filtration Rate > 60 mL/min (>60) Glucose Level 217 MG/DL (74-106) H Calcium Level 8.1 MG/DL (8.5-10.1) L Phosphorus Level 3.0 MG/DL (2.5-4.9) Magnesium Level 1.3 MG/DL (1.8-2.4) L Total Bilirubin 0.4 MG/DL (0.2-1.0) Aspartate Amino Transf (AST/SGOT) 21 U/L (15-37) Alanine Aminotransferase (ALT/SGPT) 37 U/L (12-78) Alkaline Phosphatase 125 U/L (46-116) H Total Protein 6.0 G/DL (6.4-8.2) L Albumin 2.7 G/DL (3.4-5.0) L Globulin 3.3 g/dL Albumin/Globulin Ratio 0.8 (1.0-2.7) L Current Medications Medications (Trade) Dose Ordered Sig/Grace Route PRN Reason Start Time Stop Time Status Last Admin Dose Admin Acetaminophen (Tylenol) 650 mg Q4H PRN ORAL fever 10/02/17 18:30 10/31/17 22:29 Albuterol/ Ipratropium (Albuterol/ Ipratropium) 3 ml EVERY 4 HOURS PRN HHN Shortness of Breath 10/02/17 17:00 10/06/17 22:29 Amlodipine Besylate (Norvasc) 5 mg DAILY ORAL 10/05/17 14:15 11/04/17 14:14 10/05/17 14:15 Ceftriaxone Sodium 1 gm/ Dextrose 110 ml @ 220 mls/hr Q24H IVPB 10/06/17 12:00 10/11/17 23:59 Clonidine HCl (Catapres Tab) 0.1 mg EVERY 8 HOURS PRN ORAL SBP >160 10/05/17 14:15 11/04/17 14:14 10/05/17 14:14 Dextrose (Dextrose 50%) 25 ml STAT PRN IV Hypoglycemia 10/03/17 12:45 10/31/17 22:29 Dextrose (Dextrose 50%) 50 ml STAT PRN IV Hypoglycemia 10/03/17 12:45 11/01/17 12:44 Dextrose/ Electrolytes 1,000 ml @ 75 mls/hr [id number] IV 10/04/17 16:00 11/03/17 15:59 10/05/17 05:29 Docusate Sodium (Colace) 100 mg TWICE A DAY ORAL 10/03/17 18:00 11/02/17 17:59 10/05/17 17:22 Glipizide (Glucotrol) 5 mg BID ORAL 10/04/17 09:00 11/03/17 08:59 10/05/17 17:22 Heparin Sodium (Porcine) (Heparin 5000 units/ml) 5,000 units EVERY 12 HOURS SUBQ 10/02/17 21:00 11/01/17 08:59 10/04/17 09:00 Insulin Aspart (NovoLOG) BEFORE MEALS AND HS SUBQ 10/02/17 21:00 11/01/17 06:29 10/05/17 16:58 Lorazepam (Ativan) 1 mg Q6H PRN ORAL For Anxiety 10/03/17 04:15 10/10/17 04:14 Metformin HCl (Glucophage) 500 mg TIAC ORAL 10/04/17 07:00 11/03/17 06:59 10/05/17 16:54 Morphine Sulfate (Morphine Sulfate) 2 mg EVERY 4 HOURS PRN IVP Moderate Pain (Pain Scale 4-6) 10/02/17 17:00 10/08/17 22:29 Nitroglycerin (Ntg) 0.4 mg Q5M PRN SL Prn Chest Pain 10/02/17 17:00 10/31/17 22:29 Ondansetron HCl (Zofran) 4 mg Q6H PRN IVP Nausea & Vomiting 10/02/17 22:30 10/31/17 22:29 Pantoprazole (Protonix) 40 mg DAILY ORAL 10/03/17 09:00 11/02/17 08:59 10/04/17 08:59 Polyethylene Glycol (Miralax) 17 gm DAILYPRN PRN ORAL Constipation 10/03/17 10:45 11/01/17 10:44 10/03/17 21:37 Risperidone (RisperDAL) 0.5 mg QPM ORAL 10/03/17 16:30 11/02/17 16:29 10/05/17 16:54 Temazepam (Restoril) 15 mg HSPRN PRN ORAL Insomnia 10/02/17 22:30 10/08/17 22:29 Trazodone HCl (Desyrel) 50 mg BEDTIME ORAL 10/03/17 21:00 11/02/17 20:59 10/04/17 20:58 Franky Brandt MD Oct 05, 2017 19:49
--- NOTE | 2017-10-05 20:00 | Procedure Note ---
DATE OF PROCEDURE: 10/05/2017 SURGEON: Wero Ortega M.D. REFERRING PHYSICIAN: Dorian Henriquez D.O. ANESTHESIOLOGIST: Roberto Min M.D. PROCEDURE: Upper endoscopy with biopsy and colonoscopy with biopsy. ANESTHESIA: Per Dr. Min. INSTRUMENT: Olympus adult flexible upper endoscope and colonoscope. INDICATION: Anemia, abdominal pain, weight loss. The procedure, risks, benefits, and possible consequences, including hemorrhage, aspiration, perforation and infection, and alternative treatments, were explained to the patient/legal guardian by Dr. Wero Ortega and the patient/legal guardian understood and accepted these risks. DESCRIPTION OF PROCEDURE: After informed consent was obtained and the patient was adequately sedated, Olympus upper endoscope was advanced from mouth to the second portion of duodenum and retroflexion was performed in the stomach. The patient had evidence of peeling off of the mucosa in the mid esophagus, status biopsy to rule out . In the stomach, there was diffuse gastritis. Random biopsy from antrum was obtained to rule out H. pylori infection. The patient had multiple polyps in the gastric area, most probably fundic gland polyps which were not biopsied. The passage of the scope through the pyloric channel into the duodenum was a little bit challenging. In that area, there was evidence of inflammation but no obvious ulceration. At this time, the upper endoscope was retrieved. The patient was turned over for colonoscopy. First, rectal exam was performed which showed positive for internal hemorrhoids. Then, the scope was advanced from the rectum into the cecum documented by the appendiceal orifice, ileocecal valve, and upper quadrant palpation. Quality of prep overall was good. The patient had one diminutive polyp in the rectum which was biopsied, otherwise the rest of the colonoscopy examination grossly within normal limits. Retroflexion of rectum showed evidence of medium-sized internal hemorrhoids. SUMMARY OF FINDINGS: 1. Peeling of the mucosa in the mid esophagus, status post biopsy. 2. Gastritis, status post biopsy. 3. Multiple gastric polyps. 4. Internal hemorrhoids._ 5. One rectal polyp, removed. See above for details. RECOMMENDATIONS: Follow biopsy results and treat accordingly. I want to thank Dr. Dorian Henriquez for this kind referral. Weroshashi Ortega M.D. DR: Romain JOB#: [id number] CC:
[2017-10-05] MEDS: TraZODone 50mg tab ORAL SCH (21:06)
--- NOTE | 2017-10-05 21:48 | Cardiology Progress Note ---
Assessment/Plan Assessment/Plan The patient is seen and examined, full consult note will be dictated. Objective Last 24 Hour Vital Signs Date Time Temp Pulse Resp B/P (MAP) Pulse Ox O2 Delivery O2 Flow Rate FiO2 10/05/17 20:34 67 18 Room Air 3.0 21 10/05/17 20:00 97.5 63 16 141/69 98 Room Air 97.5 10/05/17 15:56 97.7 67 18 168/66 98 Room Air 97.7 10/05/17 14:15 64 179/79 10/05/17 14:14 179/79 10/05/17 13:13 97.5 64 18 179/79 99 Room Air 97.5 10/05/17 12:58 97.8 62 17 167/76 98 Room Air 97.8 10/05/17 12:50 59 16 162/74 99 Room Air 10/05/17 12:45 61 18 165/80 98 Room Air 10/05/17 12:40 61 14 146/79 100 Nasal Cannula 3.0 10/05/17 12:39 207.7 66 20 98 10/05/17 12:34 98.0 65 16 144/73 100 Nasal Cannula 3.0 98.0 10/05/17 11:38 97.8 68 18 149/57 Room Air 97.8 10/05/17 08:15 58 16 Room Air 21 10/05/17 08:15 98.1 57 19 150/70 Room Air 98.1 10/05/17 04:00 96.6 52 16 148/67 97 96.6 10/05/17 00:00 97.7 52 15 123/56 96 97.7 Intake and Output 10/04/17 10/05/17 19:00 07:00 Intake Total 2355 ml 975 ml Balance 2355 ml 975 ml Intake Oral 1800 ml IV Total 555 ml 975 ml # Voids 5 # Bowel Movements 5 Laboratory Tests Test 10/05/17 05:00 White Blood Count 6.1 K/UL (4.8-10.8) Red Blood Count 3.98 M/UL (4.20-5.40) L Hemoglobin 11.8 G/DL (12.0-16.0) L Hematocrit 34.3 % (37.0-47.0) L Mean Corpuscular Volume 86 FL (80-99) Mean Corpuscular Hemoglobin 29.6 PG (27.0-31.0) Mean Corpuscular Hemoglobin Concent 34.3 G/DL (32.0-36.0) Red Cell Distribution Width 12.2 % (11.6-14.8) Platelet Count 220 K/UL (150-450) Mean Platelet Volume 7.1 FL (6.5-10.1) Neutrophils (%) (Auto) 57.8 % (45.0-75.0) Lymphocytes (%) (Auto) 31.5 % (20.0-45.0) Monocytes (%) (Auto) 7.2 % (1.0-10.0) Eosinophils (%) (Auto) 2.6 % (0.0-3.0) Basophils (%) (Auto) 0.9 % (0.0-2.0) Sodium Level 141 MMOL/L (136-145) Potassium Level 4.3 MMOL/L (3.5-5.1) Chloride Level 108 MMOL/L (98-107) H Carbon Dioxide Level 25 MMOL/L (21-32) Anion Gap 8 mmol/L (5-15) Blood Urea Nitrogen 9 mg/dL (7-18) Creatinine 0.6 MG/DL (0.55-1.30) Estimat Glomerular Filtration Rate > 60 mL/min (>60) Glucose Level 217 MG/DL (74-106) H Calcium Level 8.1 MG/DL (8.5-10.1) L Phosphorus Level 3.0 MG/DL (2.5-4.9) Magnesium Level 1.3 MG/DL (1.8-2.4) L Total Bilirubin 0.4 MG/DL (0.2-1.0) Aspartate Amino Transf (AST/SGOT) 21 U/L (15-37) Alanine Aminotransferase (ALT/SGPT) 37 U/L (12-78) Alkaline Phosphatase 125 U/L (46-116) H Total Protein 6.0 G/DL (6.4-8.2) L Albumin 2.7 G/DL (3.4-5.0) L Globulin 3.3 g/dL Albumin/Globulin Ratio 0.8 (1.0-2.7) L LAURA DIXON Oct 05, 2017 21:48
[2017-10-06] VITALS (7 sets, daily range): BP systolic 122–172; BP diastolic 62–78
[2017-10-06] MEDS: D5 1/2NS w/KCl 20mEq 1,000 ML IV SCH (00:12)
[2017-10-06] MEDS: metFORMIN 500mg tab ORAL SCH ×3 (06:14→16:42)
[2017-10-06] MEDS: NovoLOG Insulin Flexpen SUBQ SCH ×5 (06:16→21:13)
[2017-10-06 06:19] LABS: BASOPHILS % (AUTO) 0.6 % (0.0-2.0); EOSINOPHILS % (AUTO) 2.4 % (0.0-3.0); HEMATOCRIT 30.9 % (37.0-47.0); HEMOGLOBIN 10.9 G/DL (12.0-16.0); LYMPHOCYTES % (AUTO) 23.6 % (20.0-45.0); MEAN CORPUSCULAR VOLUME 86 FL (80-99); MONOCYTES % (AUTO) 6.2 % (1.0-10.0); NEUTROPHILS % (AUTO) 67.2 % (45.0-75.0); PLATELET COUNT 226 K/UL (150-450); RED BLOOD COUNT 3.61 M/UL (4.20-5.40); RED CELL DISTRIBUTION WIDTH 12.5 % (11.6-14.8); WHITE BLOOD COUNT 7.2 K/UL (4.8-10.8)
[2017-10-06 06:47] LABS: ALANINE AMINOTRANSFERASE 32 U/L (12-78); ALBUMIN 2.5 G/DL (3.4-5.0); ALBUMIN/GLOBULIN RATIO 0.7 (1.0-2.7); ALKALINE PHOSPHATASE 118 U/L (46-116); ANION GAP 6 mmol/L (5-15); ASPARTATE AMINO TRANSFERASE 17 U/L (15-37); BILIRUBIN,TOTAL 0.3 MG/DL (0.2-1.0); BLOOD UREA NITROGEN 6 mg/dL (7-18); CALCIUM 7.9 MG/DL (8.5-10.1); CARBON DIOXIDE 25 MMOL/L (21-32); CHLORIDE 106 MMOL/L (98-107); CREATININE 0.7 MG/DL (0.55-1.30); PHOSPHORUS 2.6 MG/DL (2.5-4.9); POTASSIUM 4.8 MMOL/L (3.5-5.1); SODIUM 137 MMOL/L (136-145)
--- NOTE | 2017-10-06 07:34 | General Progress Note ---
Assessment/Plan Problem List: (1) Partial small bowel obstruction ICD Codes: K56.600 - Partial intestinal obstruction, unspecified as to cause SNOMED: 456334817 (2) Diabetes mellitus ICD Codes: E11.9 - Type 2 diabetes mellitus without complications SNOMED: 85703138 (3) Anemia ICD Codes: D64.9 - Anemia, unspecified SNOMED: 166062099 Assessment/Plan continue Glipizide 5 mg bid continue Metformin 500 mg tid add Januvia 100 mg daily continue NISS Subjective Allergies: Coded Allergies: No Known Allergies (Unverified , 10/01/17) All Systems: reviewed and negative except above Subjective events noted - interval notes reviewed glucose still on higher side Objective Last 24 Hour Vital Signs Date Time Temp Pulse Resp B/P (MAP) Pulse Ox O2 Delivery O2 Flow Rate FiO2 10/06/17 06:08 56 132/62 10/06/17 04:14 172/64 10/06/17 04:06 97.7 56 18 172/64 99 Room Air 97.7 10/05/17 20:34 67 18 Room Air 3.0 21 10/05/17 20:00 97.5 63 16 141/69 98 Room Air 97.5 10/05/17 15:56 97.7 67 18 168/66 98 Room Air 97.7 10/05/17 14:15 64 179/79 10/05/17 14:14 179/79 10/05/17 13:13 97.5 64 18 179/79 99 Room Air 97.5 10/05/17 12:58 97.8 62 17 167/76 98 Room Air 97.8 10/05/17 12:50 59 16 162/74 99 Room Air 10/05/17 12:45 61 18 165/80 98 Room Air 10/05/17 12:40 61 14 146/79 100 Nasal Cannula 3.0 10/05/17 12:39 207.7 66 20 98 10/05/17 12:34 98.0 65 16 144/73 100 Nasal Cannula 3.0 98.0 10/05/17 11:38 97.8 68 18 149/57 Room Air 97.8 10/05/17 08:15 58 16 Room Air 21 10/05/17 08:15 98.1 57 19 150/70 Room Air 98.1 Intake and Output 10/05/17 10/06/17 19:00 07:00 Intake Total 1975 ml 1220 ml Output Total 0 ml Balance 1975 ml 1220 ml Intake Oral 850 ml 320 ml IV Total 1125 ml 900 ml Output Estimated Blood Loss 0 ml # Voids 2 3 Laboratory Tests 10/06/17 05:10: White Blood Count 7.2, Red Blood Count 3.61L, Hemoglobin 10.9L, Hematocrit 30.9L , Mean Corpuscular Volume 86, Mean Corpuscular Hemoglobin 30.3, Mean Corpuscular Hemoglobin Concent 35.3, Red Cell Distribution Width 12.5, Platelet Count 226, Mean Platelet Volume 6.7, Neutrophils (%) (Auto) 67.2, Lymphocytes (% ) (Auto) 23.6, Monocytes (%) (Auto) 6.2, Eosinophils (%) (Auto) 2.4, Basophils ( %) (Auto) 0.6, Sodium Level 137, Potassium Level 4.8, Chloride Level 106, Carbon Dioxide Level 25, Anion Gap 6, Blood Urea Nitrogen 6L, Creatinine 0.7, Estimat Glomerular Filtration Rate > 60, Glucose Level 247H, Calcium Level 7.9L , Phosphorus Level 2.6, Total Bilirubin 0.3, Aspartate Amino Transf (AST/SGOT) 17, Alanine Aminotransferase (ALT/SGPT) 32, Alkaline Phosphatase 118H, Total Protein 6.0L, Albumin 2.5L, Globulin 3.5, Albumin/Globulin Ratio 0.7L Height (Feet): 6 Height (Inches): 6.00 Weight (Pounds): 155 General Appearance: no apparent distress Neck: normal alignment Cardiovascular: normal rate Respiratory/Chest: lungs clear Abdomen: normal bowel sounds Pelvis: normal external exam Edema: no edema noted Arm (L), no edema noted Arm (R), no edema noted Leg (L), no edema noted Leg (R), no edema noted Pedal (L), no edema noted Pedal (R), no edema noted Generalized Objective Current Medications Medications (Trade) Dose Ordered Sig/Grace Route PRN Reason Start Time Stop Time Status Last Admin Dose Admin Acetaminophen (Tylenol) 650 mg Q4H PRN ORAL fever 10/02/17 18:30 10/31/17 22:29 Albuterol/ Ipratropium (Albuterol/ Ipratropium) 3 ml EVERY 4 HOURS PRN HHN Shortness of Breath 10/02/17 17:00 10/06/17 22:29 Amlodipine Besylate (Norvasc) 5 mg DAILY ORAL 10/05/17 14:15 11/04/17 14:14 10/05/17 14:15 Ceftriaxone Sodium 1 gm/ Dextrose 110 ml @ 220 mls/hr Q24H IVPB 10/06/17 12:00 10/11/17 23:59 Clonidine HCl (Catapres Tab) 0.1 mg EVERY 8 HOURS PRN ORAL SBP >160 10/05/17 14:15 11/04/17 14:14 10/06/17 04:14 Dextrose (Dextrose 50%) 25 ml STAT PRN IV Hypoglycemia 10/03/17 12:45 10/31/17 22:29 Dextrose (Dextrose 50%) 50 ml STAT PRN IV Hypoglycemia 10/03/17 12:45 11/01/17 12:44 Dextrose/ Electrolytes 1,000 ml @ 75 mls/hr [id number] IV 10/04/17 16:00 11/03/17 15:59 10/06/17 00:12 Docusate Sodium (Colace) 100 mg TWICE A DAY ORAL 10/03/17 18:00 11/02/17 17:59 10/05/17 17:22 Glipizide (Glucotrol) 5 mg BID ORAL 10/04/17 09:00 11/03/17 08:59 10/05/17 17:22 Heparin Sodium (Porcine) (Heparin 5000 units/ml) 5,000 units EVERY 12 HOURS SUBQ 10/02/17 21:00 11/01/17 08:59 10/05/17 21:05 Insulin Aspart (NovoLOG) BEFORE MEALS AND HS SUBQ 10/02/17 21:00 11/01/17 06:29 10/06/17 06:16 Lorazepam (Ativan) 1 mg Q6H PRN ORAL For Anxiety 10/03/17 04:15 10/10/17 04:14 Metformin HCl (Glucophage) 500 mg TIAC ORAL 10/04/17 07:00 11/03/17 06:59 10/06/17 06:14 Morphine Sulfate (Morphine Sulfate) 2 mg EVERY 4 HOURS PRN IVP Moderate Pain (Pain Scale 4-6) 10/02/17 17:00 10/08/17 22:29 Nitroglycerin (Ntg) 0.4 mg Q5M PRN SL Prn Chest Pain 10/02/17 17:00 10/31/17 22:29 Ondansetron HCl (Zofran) 4 mg Q6H PRN IVP Nausea & Vomiting 10/02/17 22:30 10/31/17 22:29 Pantoprazole (Protonix) 40 mg DAILY ORAL 10/03/17 09:00 11/02/17 08:59 10/04/17 08:59 Polyethylene Glycol (Miralax) 17 gm DAILYPRN PRN ORAL Constipation 10/03/17 10:45 11/01/17 10:44 10/03/17 21:37 Risperidone (RisperDAL) 0.5 mg QPM ORAL 10/03/17 16:30 11/02/17 16:29 10/05/17 16:54 Temazepam (Restoril) 15 mg HSPRN PRN ORAL Insomnia 10/02/17 22:30 10/08/17 22:29 Trazodone HCl (Desyrel) 50 mg BEDTIME ORAL 10/03/17 21:00 11/02/17 20:59 10/05/17 21:06 Item Value Date Time Bedside Blood Glucose 241 mg/dl H 10/06/17 0617 Bedside Blood Glucose 237 mg/dl H 10/05/17 2119 Bedside Blood Glucose 239 mg/dl H 10/05/17 1658 Bedside Blood Glucose 219 mg/dl H 10/05/17 1323 Bedside Blood Glucose 191 mg/dl H 10/05/17 0630 THELMA BAÑUELOS Oct 06, 2017 07:34
--- NOTE | 2017-10-06 07:42 | 48 Hour Post Anesthesia Eval ---
Post Anesthesia Evaluation Procedure: EGD Colonosopy Date of Evaluation: Oct 06, 2017 Time of Evaluation: 07:41 Blood Pressure Systolic: 138 0: 72 Pulse Rate: 68 Respiratory Rate: 20 Temperature (Fahrenheit): 97.6 O2 Sat by Pulse Oximetry: 98 Airway: patent Nausea: No Vomiting: No Pain Intensity: 1 Hydration Status: adequate Cardiopulmonary Status: stable Mental Status/LOC: patient returned to baseline Follow-up Care/Observations: n/a Post-Anesthesia Complications: none Follow-up care needed: N/A DONALD FUENTES M.D. Oct 06, 2017 07:42
[2017-10-06] MEDS: GlipiZIDE 5mg tab ORAL SCH ×2 (08:15→17:26)
[2017-10-06] MEDS: Docusate 100mg cap ORAL SCH ×2 (08:15→17:26)
[2017-10-06] MEDS: Heparin 5000 units/ml inj SUBQ SCH ×2 (08:25→21:00)
[2017-10-06] MEDS ORDERED: D5 1/2NS 1000ml IV ONE (08:51)
[2017-10-06] MEDS ORDERED: Tubing IV Secondary IV ONE (08:51)
--- NOTE | 2017-10-06 11:00 | Progress Note ---
DATE: 10/06/2017 SUBJECTIVE: This is a 67-year-old patient with generalized weakness. She dose have mood lability, paranoid schizophrenia. She had a lot of mood lability, agitation, and irritability. Cognition has declined below baseline secondary to stress of her medical illness. Diagnosis of paranoid schizophrenia, mood lability. That is why, her attending physician has requested daily psychiatric consultation. Also cognition has declined below baseline secondary to stress of her medical illness. MENTAL STATUS EXAMINATION: This is a 67-year-old female. Appearance is disheveled. Attitude, irritable and agitated. Affect, guarded and restricted. Intellect poor. Mood depressed and anxious. Motor activity, psychomotor agitation. Attention span is poor. Insight and judgment is poor. DIAGNOSIS: Paranoid schizophrenia, acute exacerbation, rule out pseudodementia. PLAN: Treat her with Risperdal 0.5 mg q.p.m., trazodone 50 mg nightly, Ativan 1 mg every six hours p.r.n. An 18 to 20 minutes of supportive therapy provided. Chart reviewed. Discussed with staff. Seen and assessed at bedside. Douglas Willson M.D. DR: ELDON JOB#: [id number] CC:
[2017-10-06] MEDS ORDERED: cefTRIAXone 1 GM in D5W 110 ML IVPB SCH (12:00)
--- NOTE | 2017-10-06 12:01 | General Surgery Progress Note ---
General Surgery-Progress Note Subjective Symptoms: improved Additional Comments having Bm this AM Objective Last 24 Hour Vital Signs Date Time Temp Pulse Resp B/P (MAP) Pulse Ox O2 Delivery O2 Flow Rate FiO2 10/06/17 08:00 97.5 80 20 122/72 96 Room Air 97.5 10/06/17 07:42 207.7 68 20 98 10/06/17 06:08 56 132/62 10/06/17 04:14 172/64 10/06/17 04:06 97.7 56 18 172/64 99 Room Air 97.7 10/05/17 20:34 67 18 Room Air 3.0 21 10/05/17 20:00 97.5 63 16 141/69 98 Room Air 97.5 10/05/17 15:56 97.7 67 18 168/66 98 Room Air 97.7 10/05/17 14:15 64 179/79 10/05/17 14:14 179/79 10/05/17 13:13 97.5 64 18 179/79 99 Room Air 97.5 10/05/17 12:58 97.8 62 17 167/76 98 Room Air 97.8 10/05/17 12:50 59 16 162/74 99 Room Air 10/05/17 12:45 61 18 165/80 98 Room Air 10/05/17 12:40 61 14 146/79 100 Nasal Cannula 3.0 10/05/17 12:39 207.7 66 20 98 10/05/17 12:34 98.0 65 16 144/73 100 Nasal Cannula 3.0 98.0 I&O Intake and Output 10/05/17 10/06/17 19:00 07:00 Intake Total 1975 ml 1220 ml Output Total 0 ml Balance 1975 ml 1220 ml Intake Oral 850 ml 320 ml IV Total 1125 ml 900 ml Output Estimated Blood Loss 0 ml # Voids 2 3 Drains: none Cardiovascular: RSR Respiratory: clear Abdomen: soft, flat, non-tender, present bowel sounds Extremities: no tenderness, no cyanosis Laboratory Tests Test 10/06/17 05:10 White Blood Count 7.2 K/UL (4.8-10.8) Red Blood Count 3.61 M/UL (4.20-5.40) L Hemoglobin 10.9 G/DL (12.0-16.0) L Hematocrit 30.9 % (37.0-47.0) L Mean Corpuscular Volume 86 FL (80-99) Mean Corpuscular Hemoglobin 30.3 PG (27.0-31.0) Mean Corpuscular Hemoglobin Concent 35.3 G/DL (32.0-36.0) Red Cell Distribution Width 12.5 % (11.6-14.8) Platelet Count 226 K/UL (150-450) Mean Platelet Volume 6.7 FL (6.5-10.1) Neutrophils (%) (Auto) 67.2 % (45.0-75.0) Lymphocytes (%) (Auto) 23.6 % (20.0-45.0) Monocytes (%) (Auto) 6.2 % (1.0-10.0) Eosinophils (%) (Auto) 2.4 % (0.0-3.0) Basophils (%) (Auto) 0.6 % (0.0-2.0) Sodium Level 137 MMOL/L (136-145) Potassium Level 4.8 MMOL/L (3.5-5.1) Chloride Level 106 MMOL/L (98-107) Carbon Dioxide Level 25 MMOL/L (21-32) Anion Gap 6 mmol/L (5-15) Blood Urea Nitrogen 6 mg/dL (7-18) L Creatinine 0.7 MG/DL (0.55-1.30) Estimat Glomerular Filtration Rate > 60 mL/min (>60) Glucose Level 247 MG/DL (74-106) H Calcium Level 7.9 MG/DL (8.5-10.1) L Phosphorus Level 2.6 MG/DL (2.5-4.9) Total Bilirubin 0.3 MG/DL (0.2-1.0) Aspartate Amino Transf (AST/SGOT) 17 U/L (15-37) Alanine Aminotransferase (ALT/SGPT) 32 U/L (12-78) Alkaline Phosphatase 118 U/L (46-116) H Total Protein 6.0 G/DL (6.4-8.2) L Albumin 2.5 G/DL (3.4-5.0) L Globulin 3.5 g/dL Albumin/Globulin Ratio 0.7 (1.0-2.7) L Plan Problems: (1) Partial small bowel obstruction Assessment & Plan: 67F possible partial SBO. nausea, emesis, diarrhea resulting in dehydration and syncope. afebrile, HD stable, leukocytosis on admission, labs abnormal on admission. CT results reviewed since admission abdominal pain resolved. labs improved. tolerating diet. no signs or symptoms of sbo likely UTI etiology of leukocytosis. on IV Abx diet as tolerated no surgical intervention necessary. okay to d/c from surgical standpoint thank you for this consult. will follow with recs. Pb Laureano Oct 06, 2017 12:01
--- NOTE | 2017-10-06 13:19 | Infectious Diseases Prog Note ---
Assessment/Plan Assessment/Plan ASSESSMENT: The patient is a 67-year-old female with leukocytosis. Rule out urinary tract infection. U cx : E. Coli / Mixed GNR Pyuria. CT scan showing perinephric stranding. Rule out bacteremia CT of abdomen and pelvis, diffuse mildly distended small bowel, minimal nonspecific bilateral perinephric fat stranding. GERD. Hypertension. Diabetes. PLAN: Rocephin d# 3 / , upon DC will change to Keflex to complete the course SP cefepime d# 3 Monitor CBC. Monitor BMP. Monitor cultures (blood ) Monitor CBC and BMP. Monitor chest x-ray Subjective Constitutional: Denies: no symptoms, fever, chills, fatigue, anorexia, drenching sweats, other Allergies: Coded Allergies: No Known Allergies (Unverified , 10/01/17) Subjective afebrile Objective Vital Signs Last 24 Hour Vital Signs Date Time Temp Pulse Resp B/P (MAP) Pulse Ox O2 Delivery O2 Flow Rate FiO2 10/06/17 12:00 98.1 54 18 141/62 96 Room Air 98.1 10/06/17 08:00 97.5 80 20 122/72 96 Room Air 97.5 10/06/17 07:42 207.7 68 20 98 10/06/17 06:08 56 132/62 10/06/17 04:14 172/64 10/06/17 04:06 97.7 56 18 172/64 99 Room Air 97.7 10/05/17 20:34 67 18 Room Air 3.0 21 10/05/17 20:00 97.5 63 16 141/69 98 Room Air 97.5 10/05/17 15:56 97.7 67 18 168/66 98 Room Air 97.7 10/05/17 14:15 64 179/79 10/05/17 14:14 179/79 Height (Feet): 6 Height (Inches): 6.00 Weight (Pounds): 155 HEENT: mucous membranes moist Respiratory/Chest: normal breath sounds Cardiovascular: regular rhythm Abdomen: no organomegaly Laboratory Tests Test 10/06/17 05:10 White Blood Count 7.2 K/UL (4.8-10.8) Red Blood Count 3.61 M/UL (4.20-5.40) L Hemoglobin 10.9 G/DL (12.0-16.0) L Hematocrit 30.9 % (37.0-47.0) L Mean Corpuscular Volume 86 FL (80-99) Mean Corpuscular Hemoglobin 30.3 PG (27.0-31.0) Mean Corpuscular Hemoglobin Concent 35.3 G/DL (32.0-36.0) Red Cell Distribution Width 12.5 % (11.6-14.8) Platelet Count 226 K/UL (150-450) Mean Platelet Volume 6.7 FL (6.5-10.1) Neutrophils (%) (Auto) 67.2 % (45.0-75.0) Lymphocytes (%) (Auto) 23.6 % (20.0-45.0) Monocytes (%) (Auto) 6.2 % (1.0-10.0) Eosinophils (%) (Auto) 2.4 % (0.0-3.0) Basophils (%) (Auto) 0.6 % (0.0-2.0) Sodium Level 137 MMOL/L (136-145) Potassium Level 4.8 MMOL/L (3.5-5.1) Chloride Level 106 MMOL/L (98-107) Carbon Dioxide Level 25 MMOL/L (21-32) Anion Gap 6 mmol/L (5-15) Blood Urea Nitrogen 6 mg/dL (7-18) L Creatinine 0.7 MG/DL (0.55-1.30) Estimat Glomerular Filtration Rate > 60 mL/min (>60) Glucose Level 247 MG/DL (74-106) H Calcium Level 7.9 MG/DL (8.5-10.1) L Phosphorus Level 2.6 MG/DL (2.5-4.9) Total Bilirubin 0.3 MG/DL (0.2-1.0) Aspartate Amino Transf (AST/SGOT) 17 U/L (15-37) Alanine Aminotransferase (ALT/SGPT) 32 U/L (12-78) Alkaline Phosphatase 118 U/L (46-116) H Total Protein 6.0 G/DL (6.4-8.2) L Albumin 2.5 G/DL (3.4-5.0) L Globulin 3.5 g/dL Albumin/Globulin Ratio 0.7 (1.0-2.7) L Current Medications Medications (Trade) Dose Ordered Sig/Grace Route PRN Reason Start Time Stop Time Status Last Admin Dose Admin Acetaminophen (Tylenol) 650 mg Q4H PRN ORAL fever 10/02/17 18:30 10/31/17 22:29 Albuterol/ Ipratropium (Albuterol/ Ipratropium) 3 ml EVERY 4 HOURS PRN HHN Shortness of Breath 10/02/17 17:00 10/06/17 22:29 Amlodipine Besylate (Norvasc) 5 mg DAILY ORAL 10/05/17 14:15 11/04/17 14:14 10/05/17 14:15 Ceftriaxone Sodium 1 gm/ Dextrose 110 ml @ 220 mls/hr Q24H IVPB 10/06/17 12:00 10/11/17 23:59 10/06/17 13:16 Clonidine HCl (Catapres Tab) 0.1 mg EVERY 8 HOURS PRN ORAL SBP >160 10/05/17 14:15 11/04/17 14:14 10/06/17 04:14 Dextrose (Dextrose 50%) 25 ml STAT PRN IV Hypoglycemia 10/03/17 12:45 10/31/17 22:29 Dextrose (Dextrose 50%) 50 ml STAT PRN IV Hypoglycemia 10/03/17 12:45 11/01/17 12:44 Dextrose/ Electrolytes 1,000 ml @ 75 mls/hr [id number] IV 10/04/17 16:00 11/03/17 15:59 10/06/17 00:12 Docusate Sodium (Colace) 100 mg TWICE A DAY ORAL 10/03/17 18:00 11/02/17 17:59 10/06/17 08:15 Glipizide (Glucotrol) 5 mg BID ORAL 10/04/17 09:00 11/03/17 08:59 10/06/17 08:15 Heparin Sodium (Porcine) (Heparin 5000 units/ml) 5,000 units EVERY 12 HOURS SUBQ 10/02/17 21:00 11/01/17 08:59 10/06/17 08:25 Insulin Aspart (NovoLOG) BEFORE MEALS AND HS SUBQ 10/02/17 21:00 11/01/17 06:29 10/06/17 12:29 Lorazepam (Ativan) 1 mg Q6H PRN ORAL For Anxiety 10/03/17 04:15 10/10/17 04:14 Metformin HCl (Glucophage) 500 mg TIAC ORAL 10/04/17 07:00 11/03/17 06:59 10/06/17 06:14 Morphine Sulfate (Morphine Sulfate) 2 mg EVERY 4 HOURS PRN IVP Moderate Pain (Pain Scale 4-6) 10/02/17 17:00 10/08/17 22:29 Nitroglycerin (Ntg) 0.4 mg Q5M PRN SL Prn Chest Pain 10/02/17 17:00 10/31/17 22:29 Ondansetron HCl (Zofran) 4 mg Q6H PRN IVP Nausea & Vomiting 10/02/17 22:30 10/31/17 22:29 Pantoprazole (Protonix) 40 mg DAILY ORAL 10/03/17 09:00 11/02/17 08:59 10/06/17 08:15 Polyethylene Glycol (Miralax) 17 gm DAILYPRN PRN ORAL Constipation 10/03/17 10:45 11/01/17 10:44 10/03/17 21:37 Risperidone (RisperDAL) 0.5 mg QPM ORAL 10/03/17 16:30 11/02/17 16:29 10/05/17 16:54 Sitagliptin Phosphate (Januvia) 100 mg ACBREAKFAST ORAL 10/06/17 08:00 11/05/17 07:59 Temazepam (Restoril) 15 mg HSPRN PRN ORAL Insomnia 10/02/17 22:30 10/08/17 22:29 Trazodone HCl (Desyrel) 50 mg BEDTIME ORAL 10/03/17 21:00 11/02/17 20:59 10/05/17 21:06 Franky Brandt MD Oct 06, 2017 13:19
--- NOTE | 2017-10-06 14:00 | General Progress Note ---
Assessment/Plan Problem List: (1) UTI (urinary tract infection) ICD Codes: N39.0 - Urinary tract infection, site not specified SNOMED: 85108785 (2) Diabetes mellitus ICD Codes: E11.9 - Type 2 diabetes mellitus without complications SNOMED: 62591638 (3) Ileus ICD Codes: K56.7 - Ileus, unspecified SNOMED: 055588471 (4) Partial small bowel obstruction ICD Codes: K56.600 - Partial intestinal obstruction, unspecified as to cause SNOMED: 076299160 (5) Abdominal pain ICD Codes: R10.9 - Unspecified abdominal pain SNOMED: 62933057 (6) Nausea & vomiting ICD Codes: R11.2 - Nausea with vomiting, unspecified SNOMED: 38746232 (7) Dehydration ICD Codes: E86.0 - Dehydration SNOMED: 86220172 Status: stable, progressing, tolerating diet Assessment/Plan ot pt diet abx gi sx f/u dc to snf Subjective Allergies: Coded Allergies: No Known Allergies (Unverified , 10/01/17) All Systems: reviewed and negative except above Subjective calm in bed Objective Last 24 Hour Vital Signs Date Time Temp Pulse Resp B/P (MAP) Pulse Ox O2 Delivery O2 Flow Rate FiO2 10/06/17 12:00 98.1 54 18 141/62 96 Room Air 98.1 10/06/17 08:00 97.5 80 20 122/72 96 Room Air 97.5 10/06/17 07:42 207.7 68 20 98 10/06/17 06:08 56 132/62 10/06/17 04:14 172/64 10/06/17 04:06 97.7 56 18 172/64 99 Room Air 97.7 10/05/17 20:34 67 18 Room Air 3.0 21 10/05/17 20:00 97.5 63 16 141/69 98 Room Air 97.5 10/05/17 15:56 97.7 67 18 168/66 98 Room Air 97.7 10/05/17 14:15 64 179/79 10/05/17 14:14 179/79 Intake and Output 10/05/17 10/06/17 19:00 07:00 Intake Total 1975 ml 1220 ml Output Total 0 ml Balance 1975 ml 1220 ml Intake Oral 850 ml 320 ml IV Total 1125 ml 900 ml Output Estimated Blood Loss 0 ml # Voids 2 3 Laboratory Tests 10/06/17 05:10: White Blood Count 7.2, Red Blood Count 3.61L, Hemoglobin 10.9L, Hematocrit 30.9L , Mean Corpuscular Volume 86, Mean Corpuscular Hemoglobin 30.3, Mean Corpuscular Hemoglobin Concent 35.3, Red Cell Distribution Width 12.5, Platelet Count 226, Mean Platelet Volume 6.7, Neutrophils (%) (Auto) 67.2, Lymphocytes (% ) (Auto) 23.6, Monocytes (%) (Auto) 6.2, Eosinophils (%) (Auto) 2.4, Basophils ( %) (Auto) 0.6, Sodium Level 137, Potassium Level 4.8, Chloride Level 106, Carbon Dioxide Level 25, Anion Gap 6, Blood Urea Nitrogen 6L, Creatinine 0.7, Estimat Glomerular Filtration Rate > 60, Glucose Level 247H, Calcium Level 7.9L , Phosphorus Level 2.6, Total Bilirubin 0.3, Aspartate Amino Transf (AST/SGOT) 17, Alanine Aminotransferase (ALT/SGPT) 32, Alkaline Phosphatase 118H, Total Protein 6.0L, Albumin 2.5L, Globulin 3.5, Albumin/Globulin Ratio 0.7L Height (Feet): 6 Height (Inches): 6.00 Weight (Pounds): 155 General Appearance: alert EENT: normal ENT inspection Neck: normal alignment Cardiovascular: normal peripheral pulses, normal rate, regular rhythm Respiratory/Chest: chest wall non-tender, lungs clear, normal breath sounds Abdomen: normal bowel sounds, non tender, soft Extremities: normal inspection Edema: no edema noted Arm (L), no edema noted Arm (R), no edema noted Leg (L), no edema noted Leg (R), no edema noted Pedal (L), no edema noted Pedal (R), no edema noted Generalized Neurologic: responsive, motor weakness Skin: normal pigmentation, warm/dry LYDIA ASKEW Oct 06, 2017 14:00
[2017-10-06] MEDS ORDERED: CEPHALEXIN500 MG ORAL (14:35)
--- NOTE | 2017-10-06 14:36 | GI Progress Note ---
Assessment/Plan Problems: (1) Weight loss ICD Codes: R63.4 - Abnormal weight loss SNOMED: 57819262, 490702030 (2) Anemia ICD Codes: D64.9 - Anemia, unspecified SNOMED: 560080879 (3) Nausea & vomiting ICD Codes: R11.2 - Nausea with vomiting, unspecified SNOMED: 37153312 (4) Fall ICD Codes: W19.XXXA - Unspecified fall, initial encounter SNOMED: 1878775, 569658201 (5) Syncope ICD Codes: R55 - Syncope and collapse SNOMED: 743108274 (6) Dehydration ICD Codes: E86.0 - Dehydration SNOMED: 24850118 (7) Diarrhea ICD Codes: R19.7 - Diarrhea, unspecified SNOMED: 06957318 Status: stable Status Narrative Discussed with Dr. Ortega. Assessment/Plan SUMMARY OF FINDINGS: 1. Peeling of the mucosa in the mid esophagus, status post biopsy. 2. Gastritis, status post biopsy. 3. Multiple gastric polyps. 4. Internal hemorrhoids. 5. One rectal polyp, removed. See above for details. RECOMMENDATIONS: okay for DC per GI standpoint Follow biopsy results and treat accordingly. adv diet PT/OT evaluation fu labs Subjective Gastrointestinal/Abdominal: Reports: no symptoms Subjective feels ok Objective Last 24 Hour Vital Signs Date Time Temp Pulse Resp B/P (MAP) Pulse Ox O2 Delivery O2 Flow Rate FiO2 10/06/17 12:00 98.1 54 18 141/62 96 Room Air 98.1 10/06/17 08:00 97.5 80 20 122/72 96 Room Air 97.5 10/06/17 07:42 207.7 68 20 98 10/06/17 06:08 56 132/62 10/06/17 04:14 172/64 10/06/17 04:06 97.7 56 18 172/64 99 Room Air 97.7 10/05/17 20:34 67 18 Room Air 3.0 21 10/05/17 20:00 97.5 63 16 141/69 98 Room Air 97.5 10/05/17 15:56 97.7 67 18 168/66 98 Room Air 97.7 Intake and Output 10/05/17 10/06/17 19:00 07:00 Intake Total 1975 ml 1220 ml Output Total 0 ml Balance 1975 ml 1220 ml Intake Oral 850 ml 320 ml IV Total 1125 ml 900 ml Output Estimated Blood Loss 0 ml # Voids 2 3 Laboratory Tests Test 10/06/17 05:10 White Blood Count 7.2 K/UL (4.8-10.8) Red Blood Count 3.61 M/UL (4.20-5.40) L Hemoglobin 10.9 G/DL (12.0-16.0) L Hematocrit 30.9 % (37.0-47.0) L Mean Corpuscular Volume 86 FL (80-99) Mean Corpuscular Hemoglobin 30.3 PG (27.0-31.0) Mean Corpuscular Hemoglobin Concent 35.3 G/DL (32.0-36.0) Red Cell Distribution Width 12.5 % (11.6-14.8) Platelet Count 226 K/UL (150-450) Mean Platelet Volume 6.7 FL (6.5-10.1) Neutrophils (%) (Auto) 67.2 % (45.0-75.0) Lymphocytes (%) (Auto) 23.6 % (20.0-45.0) Monocytes (%) (Auto) 6.2 % (1.0-10.0) Eosinophils (%) (Auto) 2.4 % (0.0-3.0) Basophils (%) (Auto) 0.6 % (0.0-2.0) Sodium Level 137 MMOL/L (136-145) Potassium Level 4.8 MMOL/L (3.5-5.1) Chloride Level 106 MMOL/L (98-107) Carbon Dioxide Level 25 MMOL/L (21-32) Anion Gap 6 mmol/L (5-15) Blood Urea Nitrogen 6 mg/dL (7-18) L Creatinine 0.7 MG/DL (0.55-1.30) Estimat Glomerular Filtration Rate > 60 mL/min (>60) Glucose Level 247 MG/DL (74-106) H Calcium Level 7.9 MG/DL (8.5-10.1) L Phosphorus Level 2.6 MG/DL (2.5-4.9) Total Bilirubin 0.3 MG/DL (0.2-1.0) Aspartate Amino Transf (AST/SGOT) 17 U/L (15-37) Alanine Aminotransferase (ALT/SGPT) 32 U/L (12-78) Alkaline Phosphatase 118 U/L (46-116) H Total Protein 6.0 G/DL (6.4-8.2) L Albumin 2.5 G/DL (3.4-5.0) L Globulin 3.5 g/dL Albumin/Globulin Ratio 0.7 (1.0-2.7) L Height (Feet): 6 Height (Inches): 6.00 Weight (Pounds): 155 General Appearance: WD/WN, no apparent distress, alert Cardiovascular: normal rate Respiratory/Chest: normal breath sounds, no respiratory distress Abdominal Exam: normal bowel sounds, non tender, soft Extremities: normal range of motion, non-tender Lorie Marr N.P. Oct 06, 2017 14:36
[2017-10-06] MEDS ORDERED: GLUCOTROL5 MG ORAL (14:48)
[2017-10-06] MEDS ORDERED: DOCUSATE SODIU100 M2 ORAL (14:49)
[2017-10-06] MEDS ORDERED: LORAZEPAM2 MG/1 M4 ORAL (14:51)
[2017-10-06] MEDS ORDERED: LORAZEPAM1 MG ORAL (14:52)
[2017-10-06] MEDS ORDERED: GLUCOPHAGE1000 MG ORAL (14:54)
[2017-10-06] MEDS ORDERED: NORVASC5 MG ORAL (14:55)
[2017-10-06] MEDS ORDERED: ACETAMINOPHEN325 M1 ORAL (14:57)
[2017-10-06] MEDS ORDERED: CLONIDINE HCL0.1 MG PO ×2 (14:59→15:00)
[2017-10-06] MEDS ORDERED: ZOFRAN4 M1 ORAL (15:02)
[2017-10-06] MEDS ORDERED: PANTOPRAZOLE SO20 MG ORAL (15:05)
[2017-10-06] MEDS ORDERED: PROTONIX40 MG ORAL (15:05)
[2017-10-06] MEDS ORDERED: RISPERDAL0.5 MG ORAL (15:06)
[2017-10-06] MEDS ORDERED: MIRALAX17 G2 ORAL (15:07)
[2017-10-06] MEDS ORDERED: TRAZODONE HCL50 MG ORAL (15:08)
[2017-10-06] MEDS ORDERED: NOVOLOG100 UNITS1 (15:09)
--- NOTE | 2017-10-06 15:58 | Pulmonology Progress Note ---
Assessment/Plan Problems: (1) UTI (urinary tract infection) (2) Ileus (3) Nausea & vomiting (4) Weight loss (5) Anemia (6) Diabetes mellitus Assessment/Plan constipated advance diet GI f/u, colonoscopy and EGD was done check electrolytes all meds and labs reviewed dc to previous facility Subjective ROS Limited/Unobtainable: No Constitutional: Reports: no symptoms HEENT: Repors: no symptoms Respiratory: Reports: no symptoms Cardiovascular: Reports: no symptoms Gastrointestinal/Abdominal: Reports: no symptoms Allergies: Coded Allergies: No Known Allergies (Unverified , 10/01/17) Objective Last 24 Hour Vital Signs Date Time Temp Pulse Resp B/P (MAP) Pulse Ox O2 Delivery O2 Flow Rate FiO2 10/06/17 15:41 160/78 10/06/17 15:32 98.4 60 20 160/78 99 Room Air 98.4 10/06/17 12:00 98.1 54 18 141/62 96 Room Air 98.1 10/06/17 08:00 97.5 80 20 122/72 96 Room Air 97.5 10/06/17 07:42 207.7 68 20 98 10/06/17 06:08 56 132/62 10/06/17 04:14 172/64 10/06/17 04:06 97.7 56 18 172/64 99 Room Air 97.7 10/05/17 20:34 67 18 Room Air 3.0 21 10/05/17 20:00 97.5 63 16 141/69 98 Room Air 97.5 Intake and Output 10/05/17 10/06/17 19:00 07:00 Intake Total 1975 ml 1220 ml Output Total 0 ml Balance 1975 ml 1220 ml Intake Oral 850 ml 320 ml IV Total 1125 ml 900 ml Output Estimated Blood Loss 0 ml # Voids 2 3 Objective General Appearance: cachetic HEENT: normocephalic, atraumatic Respiratory/Chest: chest wall non-tender, lungs clear Cardiovascular: normal rate, regular rhythm Abdomen: normal bowel sounds, soft, non tender, non distended Genitourinary: normal external genitalia Extremities: no cyanosis Skin: no rash Neurologic/Psychiatric: precision honer II-XII grossly normal, no motor/sensory deficits, alert Laboratory Tests 10/06/17 05:10: White Blood Count 7.2, Red Blood Count 3.61L, Hemoglobin 10.9L, Hematocrit 30.9L , Mean Corpuscular Volume 86, Mean Corpuscular Hemoglobin 30.3, Mean Corpuscular Hemoglobin Concent 35.3, Red Cell Distribution Width 12.5, Platelet Count 226, Mean Platelet Volume 6.7, Neutrophils (%) (Auto) 67.2, Lymphocytes (% ) (Auto) 23.6, Monocytes (%) (Auto) 6.2, Eosinophils (%) (Auto) 2.4, Basophils ( %) (Auto) 0.6, Sodium Level 137, Potassium Level 4.8, Chloride Level 106, Carbon Dioxide Level 25, Anion Gap 6, Blood Urea Nitrogen 6L, Creatinine 0.7, Estimat Glomerular Filtration Rate > 60, Glucose Level 247H, Calcium Level 7.9L , Phosphorus Level 2.6, Total Bilirubin 0.3, Aspartate Amino Transf (AST/SGOT) 17, Alanine Aminotransferase (ALT/SGPT) 32, Alkaline Phosphatase 118H, Total Protein 6.0L, Albumin 2.5L, Globulin 3.5, Albumin/Globulin Ratio 0.7L Current Medications Medications (Trade) Dose Ordered Sig/Grace Route PRN Reason Start Time Stop Time Status Last Admin Dose Admin Acetaminophen (Tylenol) 650 mg Q4H PRN ORAL fever 10/02/17 18:30 10/31/17 22:29 Albuterol/ Ipratropium (Albuterol/ Ipratropium) 3 ml EVERY 4 HOURS PRN HHN Shortness of Breath 10/02/17 17:00 10/06/17 22:29 Amlodipine Besylate (Norvasc) 5 mg DAILY ORAL 10/05/17 14:15 11/04/17 14:14 10/05/17 14:15 Ceftriaxone Sodium 1 gm/ Dextrose 110 ml @ 220 mls/hr Q24H IVPB 10/06/17 12:00 10/11/17 23:59 10/06/17 13:16 Clonidine HCl (Catapres Tab) 0.1 mg EVERY 8 HOURS PRN ORAL SBP >160 10/05/17 14:15 11/04/17 14:14 10/06/17 15:41 Dextrose (Dextrose 50%) 25 ml STAT PRN IV Hypoglycemia 10/03/17 12:45 10/31/17 22:29 Dextrose (Dextrose 50%) 50 ml STAT PRN IV Hypoglycemia 10/03/17 12:45 11/01/17 12:44 Dextrose/ Electrolytes 1,000 ml @ 75 mls/hr [id number] IV 10/04/17 16:00 11/03/17 15:59 10/06/17 00:12 Docusate Sodium (Colace) 100 mg TWICE A DAY ORAL 10/03/17 18:00 11/02/17 17:59 10/06/17 08:15 Glipizide (Glucotrol) 5 mg BID ORAL 10/04/17 09:00 11/03/17 08:59 10/06/17 08:15 Heparin Sodium (Porcine) (Heparin 5000 units/ml) 5,000 units EVERY 12 HOURS SUBQ 10/02/17 21:00 11/01/17 08:59 10/06/17 08:25 Insulin Aspart (NovoLOG) BEFORE MEALS AND HS SUBQ 10/02/17 21:00 11/01/17 06:29 10/06/17 12:29 Lorazepam (Ativan) 1 mg Q6H PRN ORAL For Anxiety 10/03/17 04:15 10/10/17 04:14 Metformin HCl (Glucophage) 500 mg TIAC ORAL 10/04/17 07:00 11/03/17 06:59 10/06/17 06:14 Morphine Sulfate (Morphine Sulfate) 2 mg EVERY 4 HOURS PRN IVP Moderate Pain (Pain Scale 4-6) 10/02/17 17:00 10/08/17 22:29 Nitroglycerin (Ntg) 0.4 mg Q5M PRN SL Prn Chest Pain 10/02/17 17:00 10/31/17 22:29 Ondansetron HCl (Zofran) 4 mg Q6H PRN IVP Nausea & Vomiting 10/02/17 22:30 10/31/17 22:29 Pantoprazole (Protonix) 40 mg DAILY ORAL 10/03/17 09:00 11/02/17 08:59 10/06/17 08:15 Polyethylene Glycol (Miralax) 17 gm DAILYPRN PRN ORAL Constipation 10/03/17 10:45 11/01/17 10:44 10/03/17 21:37 Risperidone (RisperDAL) 0.5 mg QPM ORAL 10/03/17 16:30 11/02/17 16:29 10/05/17 16:54 Sitagliptin Phosphate (Januvia) 100 mg ACBREAKFAST ORAL 10/06/17 08:00 11/05/17 07:59 Temazepam (Restoril) 15 mg HSPRN PRN ORAL Insomnia 10/02/17 22:30 10/08/17 22:29 Trazodone HCl (Desyrel) 50 mg BEDTIME ORAL 10/03/17 21:00 11/02/17 20:59 10/05/17 21:06 Raymond Rosen MD Oct 06, 2017 15:58
--- NOTE | 2017-10-06 18:45 | Progress Note ---
DATE: 10/05/2017 PSYCHOTHERAPY CONSULTATION PROGRESS NOTE TREATING ATTENDING PHYSICIAN: Dorian Henriquez D.O. This patient is a 67-year-old female patient diagnosed with major depressive disorder, recurrent with psychotic features. The patient today has been confused. She is cooperative with this clinician. The patient has had bouts of helplessness, hopelessness, and confusion. She has been disorganized in her thought process. The patient states she was able to sleep last night and the medication has been helping her. She is reporting to have a good appetite and has been cooperative. This clinician assessed the patient. The patient is alert and oriented to person and place. Her mood is dysphoric. Affect is blunted. Thought process, disorganized. Thought content, continues to remain confused. The patient has poor attention and concentration. Assessed this patient, assessed the patient's mental status. Provided the patient with reality orientation, provide with the patient with supportive psychotherapy. Encouraging the patient to participate in treatment milieu, working on coping skills, and compliance with treatment. Continue with behavioral management. This clinician has reviewed the patient's chart and discussed the treatment with treatment team. We will continue to work on and exploring coping skills. Tanner Cyr PsyD. : Mariola JOB#: [id number] CC:
[2017-10-06] MEDS: TraZODone 50mg tab ORAL SCH (21:11)
--- NOTE | 2017-10-06 23:59 | Cardiology Progress Note ---
Assessment/Plan Assessment/Plan 1. Accelerated hypertension, increase amlodipine to 5mg po bid. 2. History of diabetes mellitus, consider ASA and statins. 3. Sinus tachycardia, resolved with hydration, likely due to frequent episodes of emesis. Subjective Subjective No cardiac events. Not on the telemetry unit. Objective Last 24 Hour Vital Signs Date Time Temp Pulse Resp B/P (MAP) Pulse Ox O2 Delivery O2 Flow Rate FiO2 10/06/17 21:11 60 154/76 10/06/17 19:08 97.7 60 20 154/76 97 Room Air 97.7 10/06/17 19:05 68 18 Room Air 21 10/06/17 15:41 160/78 10/06/17 15:32 98.4 60 20 160/78 99 Room Air 98.4 10/06/17 12:00 98.1 54 18 141/62 96 Room Air 98.1 10/06/17 08:00 97.5 80 20 122/72 96 Room Air 97.5 10/06/17 07:42 207.7 68 20 98 10/06/17 06:08 56 132/62 10/06/17 04:14 172/64 10/06/17 04:06 97.7 56 18 172/64 99 Room Air 97.7 Intake and Output 10/05/17 10/06/17 19:00 07:00 Intake Total 1975 ml 1220 ml Output Total 0 ml Balance 1975 ml 1220 ml Intake Oral 850 ml 320 ml IV Total 1125 ml 900 ml Output Estimated Blood Loss 0 ml # Voids 2 3 Laboratory Tests Test 10/06/17 05:10 White Blood Count 7.2 K/UL (4.8-10.8) Red Blood Count 3.61 M/UL (4.20-5.40) L Hemoglobin 10.9 G/DL (12.0-16.0) L Hematocrit 30.9 % (37.0-47.0) L Mean Corpuscular Volume 86 FL (80-99) Mean Corpuscular Hemoglobin 30.3 PG (27.0-31.0) Mean Corpuscular Hemoglobin Concent 35.3 G/DL (32.0-36.0) Red Cell Distribution Width 12.5 % (11.6-14.8) Platelet Count 226 K/UL (150-450) Mean Platelet Volume 6.7 FL (6.5-10.1) Neutrophils (%) (Auto) 67.2 % (45.0-75.0) Lymphocytes (%) (Auto) 23.6 % (20.0-45.0) Monocytes (%) (Auto) 6.2 % (1.0-10.0) Eosinophils (%) (Auto) 2.4 % (0.0-3.0) Basophils (%) (Auto) 0.6 % (0.0-2.0) Sodium Level 137 MMOL/L (136-145) Potassium Level 4.8 MMOL/L (3.5-5.1) Chloride Level 106 MMOL/L (98-107) Carbon Dioxide Level 25 MMOL/L (21-32) Anion Gap 6 mmol/L (5-15) Blood Urea Nitrogen 6 mg/dL (7-18) L Creatinine 0.7 MG/DL (0.55-1.30) Estimat Glomerular Filtration Rate > 60 mL/min (>60) Glucose Level 247 MG/DL (74-106) H Calcium Level 7.9 MG/DL (8.5-10.1) L Phosphorus Level 2.6 MG/DL (2.5-4.9) Total Bilirubin 0.3 MG/DL (0.2-1.0) Aspartate Amino Transf (AST/SGOT) 17 U/L (15-37) Alanine Aminotransferase (ALT/SGPT) 32 U/L (12-78) Alkaline Phosphatase 118 U/L (46-116) H Total Protein 6.0 G/DL (6.4-8.2) L Albumin 2.5 G/DL (3.4-5.0) L Globulin 3.5 g/dL Albumin/Globulin Ratio 0.7 (1.0-2.7) L Objective HEENT: Atraumatic and normocephalic. Anicteric. Pupils are equal, round, and reactive to light and accommodation. Extraocular muscles intact. NECK: JVP is less than 5 cm. No carotid bruits. Carotid upstrokes 2+ bilaterally. CARDIOVASCULAR: Normal S1 and S2. Regular rate and rhythm. No murmurs, gallops, or rubs. PMI is at fourth intercostal space in the midclavicular line. LUNGS: Clear to auscultation bilaterally. ABDOMEN: Soft, nontender, and nondistended. No hepatosplenomegaly. Positive bowel sounds. EXTREMITIES: No evidence of edema, clubbing, or cyanosis. LAURA DIXON Oct 06, 2017 23:59
--- NOTE | 2017-10-07 02:45 | Consultation ---
DATE OF CONSULTATION: 10/05/2017 CARDIOLOGY CONSULTATION CONSULTING PHYSICIAN: Rashad Villatoro M.D. REFERRING PHYSICIAN: Dorian Henriquez D.O. REASON FOR CONSULTATION: Management of accelerated hypertension. HISTORY OF PRESENT ILLNESS: This is a very unfortunate 67-year-old female, who initially presents to [facility] on 10/01/2017 after multiple episodes of vomiting, which was reported to be nonbilious, nonbloody occurring after she sustained a fall early that day. On her initial presentation to the emergency department, her blood pressure was 113/63 and heart rate of 100, however, during the course of hospitalization in the Medical/Surgical unit, her blood pressure went up as high as 179/79 mmHg. Cardiology consultation was made at request of Dr. Henriquez for evaluation and management of this condition. At the bedside, the patient denies any chest pain or shortness of breath, but concurs to history of hypertension in the past. PAST MEDICAL HISTORY: Gastroesophageal reflux disease, hypertension, and diabetes mellitus. PAST SURGICAL HISTORY: None. MEDICATIONS: List of medications including acetaminophen 650 mg q.4 h. p.r.n. pain and temperature over 100.5 degrees Fahrenheit, Norvasc 5 mg p.o. daily, cephalexin 500 mg q.6 h., clonidine 0.1 mg q.8 h. p.r.n. systolic blood pressure over 160, Cranberry 400 mg p.o. daily, Colace 100 mg p.o. twice daily, Glucotrol 5 mg p.o. twice daily, lisinopril 5 mg p.o. daily, lorazepam 1 mg p.o. q.6 h., metformin 500 mg three times a day, Zofran 4 mg p.o. q.6 h. p.r.n. nausea and vomiting, pantoprazole 20 mg p.o. daily, MiraLAX 17 g p.o. daily p.r.n. constipation, Risperdal 0.5 mg before diner, and trazodone 50 mg at bedtime. ALLERGIES: No known drug allergies. SOCIAL HISTORY: Denies any history of tobacco, alcohol, or illicit drug use. REVIEW OF SYSTEMS: HEENT: Denies any headache, diplopia, or blurred vision. CONSTITUTIONAL: Denies any fever, chills, night sweats, or weight loss. CARDIOVASCULAR: Denies any chest pain, shortness of breath, PND, orthopnea, leg swelling, or syncope. PULMONARY: Denies any cough, hemoptysis, or wheezing. GASTROINTESTINAL: She had nonbloody and nonbilious emesis and with no abdominal pain, diarrhea, constipation, or GI bleed. GENITOURINARY: Denies any hematuria, dysuria, or incontinence. NEUROLOGY: Denies any motor dysfunction, sensory deficit, or altered speech. PHYSICAL EXAMINATION: GENERAL: The patient is a very pleasant 67-year-old female, in no apparent respiratory distress. Alert and oriented x4. VITAL SIGNS: Blood pressure was 179/79, heart rate of 64, respirations of 18, temperature 97.5 degrees Fahrenheit, and O2 saturation 99% on room air. HEENT: Atraumatic and normocephalic. Anicteric. Pupils are equal, round, and reactive to light and accommodation. Extraocular muscles intact. NECK: JVP is less than 5 cm. No carotid bruits. Carotid upstrokes 2+ bilaterally. CARDIOVASCULAR: Normal S1 and S2. Regular rate and rhythm. No murmurs, gallops, or rubs. PMI is at fourth intercostal space in the midclavicular line. LUNGS: Clear to auscultation bilaterally. ABDOMEN: Soft, nontender, and nondistended. No hepatosplenomegaly. Positive bowel sounds. EXTREMITIES: No evidence of edema, clubbing, or cyanosis. LABORATORY AND DIAGNOSTIC DATA: Laboratory findings on 10/05/2017, WBC 6.1, hemoglobin 11.8, hematocrit 34.3, and platelet count is 220. Sodium 141, potassium 4.3, chloride 108, bicarbonate 25, BUN of 9, creatinine 0.6, and glucose 217. Calcium is 8.1. A 12-lead electrocardiogram at the time of arrival to the hospital 10/01/2017 showed sinus tachycardia at a rate of 113, incomplete right bundle-branch block, left anterior fascicular block, left ventricular hypertrophy, and possible lateral infarct, age indeterminate. ASSESSMENT AND PLAN: The patient is a very unfortunate 67-year-old female, seen in Cardiology consultation at request of Dr. Henriquez. 1. Accelerated hypertension. I would like to start the patient on Norvasc 5 mg p.o. daily. We will also add clonidine 0.1 mg q.6 h. p.r.n. for systolic blood pressure above 160 mmHg. Ever since the patient's arrival to the hospital, she has not been antihypertensive medication had been placed on hold due to frequent emesis. It appears that the patient is currently tolerating p.o. medications. Further therapeutic decision will be based on the patient's response to this regimen in the next few days. We shall up titrate the dosage with target blood pressure of 130/80 mmHg. 2. History of diabetes mellitus. This patient will benefit from aspirin and statins. Fasting lipid panel will be done. 3. Sinus tachycardia at the time of arrival to the hospital is most likely due to volume depletion in correlation with frequent emesis. 4. I would like to recommend adequate hydration with half normal saline fluid and perhaps p.o. liquid intake if tolerated. I would like to thank, Dr. Henriquez, for the courtesy of this consultation. Rashad Villatoro M.D. DR: NO JOB#: [id number] CC:
--- NOTE | 2017-10-07 07:45 | Consultation ---
DATE OF CONSULTATION: 10/04/2017 PSYCHOTHERAPY CONSULTATION PROGRESS NOTE CONSULTING PHYSICIAN: Tanner Cyr PsyD. REFERRING PHYSICIAN: Dorian Henriquez D.O. HISTORY OF PRESENT ILLNESS: The patient is a 67-year-old female patient who was brought into the hospital for generalized weakness. This patient has been very helpless and dysphoric and depressed. The patient has also been having difficulty with her sleep and for this reason she was referred for psychotherapeutic services. The patient has been feeling depressed and dysphoric, however, states that she denies suicidal or homicidal thoughts of ideation. The patient has been cooperative with the nursing staff. The patient states that she has been having some difficulty sleeping at nighttime and has previously taken medications to assess for this. The patient at this time denied any auditory or visual hallucinations. No suicidal or homicidal thoughts of ideation, 01:36. This clinician assessed this patient. MEDICAL HISTORY: Included history of hypertension, diabetes, as well as weakness. ALLERGIES: The patient has no known drug allergies. SUBSTANCE ABUSE HISTORY: The patient denies history of alcohol use, illicit substance use, or smoking cigarettes. PSYCHIATRIC HISTORY: The patient has a history of depression and history of difficulty sleeping. SOCIAL HISTORY: The patient is a 67-year-old female patient who lives in [facility]. Financially sustained through [facility]. MENTAL STATUS EXAMINATION: The patient is alert and oriented to person and place. Her mood is dysphoric. Affect blunted. Thought process, disorganized. Thought content, confused. She has poor attention and concentration. DIAGNOSIS: Major depressive disorder, mild, recurrent with psychotic features. The patient has 02:45 paranoid according to nursing staff. This clinician assessed this patient. Provided the patient with supportive psychotherapy, processing the patient's thoughts 03:02. Provide the patient with reality orientation. Encouraging to participate in treatment milieu. Assessing her current mood and mental status. Continue behavioral management. This clinician has reviewed the patient's chart. Discussed the treatment with treatment team. Tanner Cyr PsyD. : KAYLEE JOB#: [id number] CC:
--- NOTE | 2017-10-08 12:13 | Discharge Summary ---
Discharge Summary Discharge Summary Discharge Summary DATE OF ADMISSION: 10/01/2017 DATE OF DISCHARGE: 10/06/2017 CONSULTANTS: Dr. Raymond Cyr [facility] HOSPITAL COURSE: Patient is a 67-year-old female from [facility] presented to ED due to 2 days of increased nausea and vomiting. She was reported to have multiple episodes of nonbilious emesis and had a fall at the [place] [facility]. She was taken to ED via EMS. She has medical history significant for hypertension and diabetes. On evaluation at ED, WBC was elevated to 28. Urinalysis with 10-15 WBC, 5-10 RBC, 3+ leukocyte esterase. CT of the abdomen and pelvis with mildly diffusely distended fluid-filled small bowel loops, suspect enteritis or ileus. She was admitted for urinary tract infection and possible bowel obstruction. She was followed by general surgeon, abdominal examination was stable although with distention. She was placed on nothing by mouth and was given IV hydration. She was eventually started empirically on cefepime. Patient was passing flatus and had bowel movement, diet was advanced and was tolerating diet. There was no surgical intervention necessary. Urine culture was growing Escherichia coli and mixed gram-positive organism. She was eventually given ceftriaxone. Patient was diabeteic, blood glucose was monitored, she was continued on glipizide 5 mg twice a day, Januvia 100 mg daily and metformin 5 mg 3 times a day. On 10/05/2017, she underwent upper endoscopy and colonoscopy with biopsy. Findings showed peeling of the mid esophagus, gastritis, multiple gastric polyps, internal hemorrhoids, and one rectal polyp removed. Pathology was negative for H. pylori. He had accelerated blood pressure. He was given Norvasc and clonidine. He had episodes of mood lability and paranoid schizophrenia. He was diagnosed with paranoid schizophrenia with acute exacerbation. She was continued on Risperdal, trazodone, and Ativan when necessary. She was eventually discharged back to [facility]. FINAL DIAGNOSES: Urinary tract infection with Escherichia coli Small bowel obstruction/ileus Nausea and vomiting Anemia Diabetes mellitus Status post EGD and colonoscopy on 10/05/2017 Accelerated hypertension Paranoid schizophrenia, acute exacerbation GERD DISPOSITION: Patient was discharged to [facility] DISCHARGE MEDICATIONS: Refer to Discharge Medication List. Continue Bactrim for 4 more days I have been assigned to dictate discharge summary on this account, and I was not involved in the patient's management. Beverly Macedo NP Oct 08, 2017 12:13
== END 2017-10-06 21:45 | DRG 389 ==
LOC: EDBD 16:36 → EMR 18:25 → 2E 18:31 → EDBEDREQ 19:03 → 4W 10-02 16:49
PROC: 0DBP8ZZ Excision of Rectum, Via Natural or Artificial Opening Endoscopic (ICD-10-PCS; principal; 2017-10-05 12:05)
PROC: 0DB78ZX Excision of Stomach, Pylorus, Via Natural or Artificial Opening Endoscopic, Diagnostic (ICD-10-PCS; principal; 2017-10-05 12:05)
PROC: 0DB28ZX Excision of Middle Esophagus, Via Natural or Artificial Opening Endoscopic, Diagnostic (ICD-10-PCS; principal; 2017-10-05 12:05)
DX: K56.600 Partial intestinal obstruction, unspecified as to cause (principal); N39.0 Urinary tract infection, site not specified; F32.3 Major depressive disorder, single episode, severe with psychotic features; F20.0 Paranoid schizophrenia; K56.7 Ileus, unspecified; R55 Syncope and collapse; E86.0 Dehydration; R11.2 Nausea with vomiting, unspecified; E11.9 Type 2 diabetes mellitus without complications; D64.9 Anemia, unspecified; K62.1 Rectal polyp; I10 Essential (primary) hypertension; Z79.4 Long term (current) use of insulin; Z91.81 History of falling; K21.9 Gastro-esophageal reflux disease without esophagitis; K29.70 Gastritis, unspecified, without bleeding; K64.8 Other hemorrhoids; E11.65 Type 2 diabetes mellitus with hyperglycemia; R63.4 Abnormal weight loss; K22.8 Other specified diseases of esophagus; K31.7 Polyp of stomach and duodenum
CPT/HCPCS: 36415; 74176; 80053; 81003; 82270; 82378; 82607; 82728; 82746; 82962; 83540; 83550; 83690; 83735; 84100; 84439; 84443; 85007; 85025; 85044; 85610; 85651; 85730; 86140; 87081; 87086; 87181; 93005; 94003; 94150; 94664; 99285; J1815; J2250; J2405